=== PATIENT | female | born 1930 | race Caucasian/White ===

== ENCOUNTER 2016-11-17 17:04 | Emergency (ER) | payer OTHER, BC ==
[~2016-11-17] VITALS: Ht 157.5 cm; Wt 70.0 kg
[~2016-11-17 17:04] MED LIST: ASCO500T87 PO; ASPI81TA28 PO; CHOL20009 PO; DOCU100C22 PO; GARL10007 PO; LISI5TAB3 PO; SENN8.6T13 PO; [UNRECOGNIZED DRUG - OTHER] PO
[2016-11-17 17:09] VITALS: TEMP 37.4; Ht 157.5 cm; Wt 70.0 kg
[2016-11-17] MEDS ORDERED: SODIUM CHLORIDE 0.9% 500ML 500 ML IV STA (17:39)
[2016-11-17] MEDS ORDERED: PROMETHAZINE HCL INJ 25 MG in SODIUM CHLORIDE 0.9% 50ML 50 ML IV STA (17:39)
--- NOTE | 2016-11-17 17:44 | EMERGENCY ROOM VISIT NOTE ---
History Report prepared by Neftaly: Ney Nicole Under the Supervision of: Dr. Pedro Varghese M.D. First contact with patient: 17:33 Chief Complaint: ILLNESS Stated Complaint: VOMITING, SICK IN STOMACH History of Present Illness The patient is an 86 year old female who presents to the Emergency Room with complaints of a persistent illness that started today. She complains of nausea, chills, a headache, and episodes of vomiting. The patient notes that her vomit has been dark. Per the patient's family, the patient has not been able to eat all day. They called the patient's primary care physician, who told the patient to come here. The patient's blood sugar was down to 112 this morning, and that' s the lowest it has been. The patient says she has a large hiatal hernia. She denies any pain or diarrhea. The patient has been around others who have been sick. She has a history of a cholecystectomy, an appendectomy, and a removal of her uterus. Source of History: patient, family Onset: Today Position: other (global - illness) Timing: other (persistent) Associated Symptoms: + chills, + headache, + nausea, + vomiting, No diarrhea Note: Associated symptoms: Unable to eat, low blood sugar. Review of Systems See HPI for pertinent positives & negatives. A total of 10 systems reviewed and were otherwise negative. Past Medical & Surgical Medical Problems: (1) Coronary artery disease (2) GERD (gastroesophageal reflux disease) (3) Hiatal hernia (4) History of cervical cancer (5) Hypertension (6) Hypothyroidism (7) Left bundle branch block (8) Polymyalgia rheumatica (9) Ulcerative colitis Surgical Problems: (1) Status post appendectomy (2) Status post cholecystectomy (3) Status post total knee replacement Family History Diabetes mellitus FH: CAD (coronary artery disease) FH: cancer FH: gallbladder disease FH: kidney disease FH: lung disease Hypertension Social History Smoking Status: Never Smoker Marital Status: Occupation Status: retired Current/Historical Medications Scheduled Ascorbic Acid (Vitamin C Tr/Mesha Hips), 1 TAB PO DAILY Aspirin (Aspirin Ec), 81 MG PO DAILY Atorvastatin (Atorvastatin Calcium), 20 MG PO DAILY Calcium Citrate-Vitamin D (Citracal Maximum), 2 TABS PO DAILY Cholecalciferol (Vitamin D), 2,000 INTER.UNIT PO DAILY Ciprofloxacin (Ciprofloxacin HCl), 1 TAB PO DAILY Docusate Sodium (Docqlace), 1 CAP PO BID Fish Oil ([place]-3), 1 CAP PO DAILY Flaxseed (Linseed) (Gnp Flaxseed), 1,000 MG PO DAILY Garlic (Garlic), 1 CAP PO DAILY Lansoprazole (Prevacid), 30 MG PO BID Lisinopril (Lisinopril), 10 MG PO DAILY Mesalamine (Asacol Hd), 800 MG PO QAM Multivitamin (Multivitamin), 1 TAB PO DAILY Ondasetron Odt (Zofran Odt), 4 MG SL Q6H Prednisone (Prednisone), 5 MG PO DAILY Sennosides (Senna Lax), 1 TAB PO DAILY Sitagliptin (Januvia), 100 MG PO DAILY Sulfanilamide Vaginal (Avc), 1 APPLN PV UD Thyroid ([place] Thyroid), 60 MG PO Q2D Thyroid ([place] Thyroid), 30 MG PO Q2D Scheduled PRN Hydrocodone/Acetaminophen 5MG/325MG (Arthur 5MG/325MG), 1 TABLET PO UD PRN for Pain Hydrocortisone Acetate (Rectal (Anucort-Hc), 25 MG KS DAILY PRN for PRN Allergies Coded Allergies: Technetium-99M (Unverified Allergy, Severe, RASH, 12/19/15) Calamine (Unverified Allergy, Mild, RASH WORSE, 12/19/15) Tetanus Toxoid (Verified Allergy, Mild, 12/19/15) Physical Exam Vital Signs Date Time Temp Pulse Resp B/P Pulse Ox O2 Delivery O2 Flow Rate FiO2 11/17/16 21:30 86 18 119/54 96 Room Air 11/17/16 18:24 79 11/17/16 17:09 37.4 83 22 125/72 97 Room Air Physical Exam GENERAL: Patient is a healthy-appearing well-nourished, hyperventilating on exam. HEAD: Normocephalic atraumatic EYES: Ocular movements intact pupils equal and react to light OROPHARYNX mucous membranes are moist no exudates present no erythema or edema present NECK: Supple no nuchal rigidity CHEST: Good equal expansion LUNGS: Clear and equal to auscultation CARDIAC: Normal S1 and S2 ABDOMEN: Soft nontender no guarding BACK: No CVA tenderness EXTREMITIES: No pain upon palpation normal muscle strength in all groups no clubbing cyanosis or edema NEURO: Patient is following commands is answering questions appropriately. Alert and oriented x3 Cranial Nerves 2-12 grossly intact Medical Decision & Procedures ER Provider Diagnostic Interpretation: ABDOMEN AND PELVIS CT WITH IV CONTRAST CT DOSE: 403.04 mGy.cm HISTORY: Right lower quadrant abdominal pain. TECHNIQUE: Multiaxial CT images of the abdomen and pelvis were performed following the use of intravenous contrast. COMPARISON STUDY: Abdomen and pelvis CT 02/09/2011. FINDINGS: Moderate to large hiatus hernia, unchanged. Cholecystectomy, hysterectomy, and appendectomy. The liver, pancreas, spleen, and adrenal glands are unremarkable. The the right kidney enhances normally. There is an indeterminate 8 mm lesion within the left kidney on image 146.. No hydronephrosis. No retroperitoneal lymphadenopathy. The bladder is unremarkable. A pessary device is seen within the vagina. Suboptimal evaluation for bowel pathology due to the lack of oral contrast. However, there is no definite bowel wall thickening or obstruction. Colonic diverticulosis. IMPRESSION: 1. No bowel wall thickening or obstruction. 2. Postoperative changes as described above. 3. Colonic diverticulosis. 4. Moderate to large hiatus hernia, unchanged. 5. An indeterminate 8 mm lesion within the left kidney. This could represent a hyperdense cyst or solid renal mass. Electronically signed by: Todd Mckeon M.D. 11/17/2016 8:02 PM Dictated Date/Time: 11/17/2016 7:53 PM CHEST ONE VIEW PORTABLE HISTORY: Atypical CHEST PAIN COMPARISON: Chest 11/03/2015. FINDINGS: Moderate hiatus hernia, unchanged. No pneumothorax. Linear densities the left lung base persist and likely represent subsegmental atelectasis or scarring. Otherwise, the lungs are clear. The heart is stable in size. No pleural effusions. IMPRESSION: No change in the mild cardiomegaly and hiatus hernia. Electronically signed by: Todd Mckeon M.D. 11/17/2016 6:29 PM Dictated Date/Time: 11/17/2016 6:28 PM Laboratory Results 11/17/16 18:00 Red Blood Count 4.75, Mean Corpuscular Volume 85.1, Mean Corpuscular Hemoglobin 28.2, Mean Corpuscular Hemoglobin Concent 33.2, Mean Platelet Volume 10.5, Neutrophils (%) (Auto) 88.2, Lymphocytes (%) (Auto) 4.3, Monocytes (%) (Auto) 6.0, Eosinophils (%) (Auto) 1.1, Basophils (%) (Auto) 0.2, Neutrophils # (Auto) 10.80, Lymphocytes # (Auto) 0.52, Monocytes # (Auto) 0.73, Eosinophils # (Auto) 0.13, Basophils # (Auto) 0.02 11/17/16 18:00 Test 11/17/16 17:13 11/17/16 17:35 11/17/16 18:00 11/17/16 18:06 Bedside Glucose 155 mg/dl (70-90) Urine Color YELLOW Urine Appearance CLEAR (CLEAR) Urine pH 5.0 (4.5-7.5) Urine Specific [place] 1.021 (1.000-1.030) Urine Protein NEG (NEG) Urine Glucose (UA) NEG (NEG) Urine Ketones NEG (NEG) Urine Occult Blood NEG (NEG) Urine Nitrite NEG (NEG) Urine Bilirubin NEG (NEG) Urine Urobilinogen NEG (NEG) Urine Leukocyte Esterase TRACE (NEG) Urine WBC (Auto) 1-5 /hpf (0-5) Urine RBC (Auto) 0-4 /hpf (0-4) Urine Hyaline Casts (Auto) 1-5 /lpf (0-5) Urine Epithelial Cells (Auto) 10-20 /lpf (0-5) Urine Bacteria (Auto) NEG (NEG) White Blood Count 12.23 K/uL (4.8-10.8) Red Blood Count 4.75 M/uL (4.2-5.4) Hemoglobin 13.4 g/dL (12.0-16.0) Hematocrit 40.4 % (37-47) Mean Corpuscular Volume 85.1 fL (80-100) Mean Corpuscular Hemoglobin 28.2 pg (25-34) Mean Corpuscular Hemoglobin Concent 33.2 g/dl (32-36) Platelet Count 234 K/uL (130-400) Mean Platelet Volume 10.5 fL (7.4-10.4) Neutrophils (%) (Auto) 88.2 % Lymphocytes (%) (Auto) 4.3 % Monocytes (%) (Auto) 6.0 % Eosinophils (%) (Auto) 1.1 % Basophils (%) (Auto) 0.2 % Neutrophils # (Auto) 10.80 K/uL (1.4-6.5) Lymphocytes # (Auto) 0.52 K/uL (1.2-3.4) Monocytes # (Auto) 0.73 K/uL (0.11-0.59) Eosinophils # (Auto) 0.13 K/uL (0-0.5) Basophils # (Auto) 0.02 K/uL (0-0.2) RDW Standard Deviation 43.7 fL (36.4-46.3) RDW Coefficient of Variation 14.1 % (11.5-14.5) Immature Granulocyte % (Auto) 0.2 % Immature Granulocyte # (Auto) 0.03 K/uL (0.00-0.02) Est Creatinine Clear Calc Drug Dose 23.1 ml/min Estimated GFR () 33.5 Estimated GFR (Non- 28.9 BUN/Creatinine Ratio 26.1 (10-20) Calcium Level 8.7 mg/dl (8.5-10.1) Total Bilirubin 0.4 mg/dl (0.2-1) Direct Bilirubin 0.1 mg/dl (0-0.2) Aspartate Amino Transf (AST/SGOT) 10 U/L (15-37) Alanine Aminotransferase (ALT/SGPT) 16 U/L (12-78) Alkaline Phosphatase 53 U/L (45-117) Total Creatine Kinase 44 U/L (26-192) Creatine Kinase MB < 0.5 ng/ml (0.5-3.6) Creatine Kinase MB Ratio (0-3.0) Troponin I < 0.015 ng/ml (0-0.045) Total Protein 7.5 gm/dl (6.4-8.2) Albumin 3.5 gm/dl (3.4-5.0) Lipase 153 U/L (73-393) Bedside Hemoglobin 14.6 g/dl (12.0-16.0) Bedside Hematocrit 43 % (37-47) Bedside Sodium 139 mEq/L (135-144) Bedside Potassium 4.3 mEq/L (3.3-5.0) Bedside Chloride 103 mEq/L (101-112) Bedside Total CO2 24 mEq/l (24-31) Anion Gap 18.0 mmol/L (16-25) Bedside Blood Urea Nitrogen 38 mg/dl (7-18) Bedside Creatinine 1.3 mg/dl (0.6-1.3) Bedside Glucose (other) 166 mg/dl (70-99) Bedside Ionized Calcium (Kristina) 1.07 mmol/l (1.12-1.32) Labs reviewed by ED physician. Medications Administered Medications (Trade) Dose Ordered Sig/Kacey Route Start Time Stop Time Status Last Admin Dose Admin Sodium Chloride 500 ml @ 999 mls/hr Q31M STAT IV 11/17/16 17:39 11/17/16 18:09 DC 11/17/16 18:01 999 MLS/HR Promethazine HCl/ Sodium Chloride (Phenergan Inj/ Nss 50ml) 51 ml @ 204 mls/hr NOW STAT IV 11/17/16 17:39 11/17/16 17:53 DC 11/17/16 17:39 204 MLS/HR Ondansetron HCl (ZOFRAN ODT 4MG Home Pack) 1 homepack UD ONCE PO 11/17/16 20:30 11/17/16 20:31 DC 11/17/16 20:30 1 HOMEPACK ECG Indication: other (illness) Rate (beats per minute): 69 Rhythm: normal sinus Findings: LBBB, no acute ischemic change, no ectopy Comparison ECG Date: no prior available ED Course 1734: Past medical records reviewed. The patient was evaluated in room B5. A complete history and physical examination was performed. 173: Ordered Promethazine HCl 25 mg/Sodium Chloride 51 ml @ 204 mls/hr IV, NSS 500 ml @ 999 mls/hr IV. Medical Decision Differential diagnosis: Etiologies such as appendicitis, diverticulitis, PUD, biliary pathology, UTI, pancreatitis, obstruction, mesenteric ischemia, aortic pathology, infections, inflammatory bowel disease, renal colic, as well as others were entertained. This is a 86-year-old female who presents emergency department complaining of vomiting and abdominal pain. Serial abdominal examinations were performed on the patient in the emergency department and no tended patient exhibit a surgical abdomen. The patient was given normal saline bolus along with Phenergan. The patient does have a slight elevation in her white blood count in her creatinine is slightly bumped however she was given normal saline bolus in the emergency department at the patient was tolerating oral fluids. The patient wishes to be discharged home so I will trial her on Zofran however strongly encouraged her to return. Patient was in agreement with the treatment plan. Impression Primary Impression: Gastritis Scribe Attestation The scribe's documentation has been prepared under my direction and personally reviewed by me in its entirety. I confirm that the note above accurately reflects all work, treatment, procedures, and medical decision making performed by me. Departure Information Dispostion Home / Self-Care Prescriptions Ondasetron Odt (ZOFRAN ODT) 4 Mg Tab 4 MG SL Q6H for Nausea, #6 TAB Prov: Pedro Varghese MD 11/17/16 Referrals Christopher Martinez M.D. (PCP) Patient Instructions My [facility] Problem Qualifiers Primary Impression: Gastritis Gastritis type: other gastritis Chronicity: unspecified Gastritis bleeding : presence of bleeding unspecified Qualified Codes: K29.60 - Other gastritis without bleeding
[2016-11-17] MEDS ORDERED: OMEG10007 PO (17:46)
[2016-11-17] MEDS ORDERED: PRED-301 PO (17:46)
[2016-11-17] MEDS ORDERED: MULT-506 PO (17:46)
[2016-11-17] MEDS ORDERED: OPTIRAY 320 IV PRN (18:00)
[2016-11-17 18:05] LABS: BASO % 0.2 %; BASO ABS # 0.02 K/uL (0-0.2); COMPLETE YES; EOS % 1.1 %; HEMATOCRIT 40.4 % (37-47); IG% 0.2 %; LYMPH % 4.3 %; LYMPH ABS # 0.52 K/uL (1.2-3.4); MEAN CELL VOLUME 85.1 fL (80-100); MEAN CORPUSCULAR HEMOGLOBIN 28.2 pg (25-34); MEAN CORPUSCULAR HGB CONC 33.2 g/dl (32-36); MEAN PLATELET VOLUME 10.5 fL (7.4-10.4); NEUT % 88.2 %; PLATELET COUNT 234 K/uL (130-400); RED BLOOD COUNT 4.75 M/uL (4.2-5.4); WHITE BLOOD COUNT 12.23 K/uL (4.8-10.8)
[2016-11-17 18:22] LABS: ISTAT CREATININE 1.3 mg/dl (0.6-1.3); ISTAT HEMOGLOBIN 14.6 g/dl (12.0-16.0); ISTAT IONIZED CALCIUM 1.07 mmol/l (1.12-1.32)
--- NOTE | 2016-11-17 18:30 | DIAGNOSTIC IMAGING REPORT ---
CHEST ONE VIEW PORTABLE HISTORY: Atypical CHEST PAIN COMPARISON: Chest 11/03/2015. FINDINGS: Moderate hiatus hernia, unchanged. No pneumothorax. Linear densities the left lung base persist and likely represent subsegmental atelectasis or scarring. Otherwise, the lungs are clear. The heart is stable in size. No pleural effusions. IMPRESSION: No change in the mild cardiomegaly and hiatus hernia. Electronically signed by: Todd Mckeon M.D. 11/17/2016 6:29 PM Dictated Date/Time: 11/17/2016 6:28 PM
[2016-11-17 18:32] LABS: ALT/SGPT 16 U/L (12-78); BLOOD UREA NITROGEN 42 mg/dl (7-18); BUN/CREATININE RATIO 26.1 (10-20); CALCIUM 8.7 mg/dl (8.5-10.1); CARBON DIOXIDE 22 mmol/L (21-32); CHLORIDE 104 mmol/L (98-107); GLUCOSE 161 mg/dl (70-99); POTASSIUM 4.3 mmol/L (3.5-5.1); SODIUM 140 mmol/L (136-145)
[2016-11-17] MEDS ORDERED: SITA1TAB27 PO (18:33)
[2016-11-17] MEDS ORDERED: CPR500HP PO (18:33)
[2016-11-17] MEDS ORDERED: [UNRECOGNIZED DRUG - OTHER] PV (18:33)
[2016-11-17] MEDS ORDERED: LISI-461 PO (18:33)
[2016-11-17] MEDS ORDERED: LPT/20 PO (18:33)
[2016-11-17 18:37] LABS: ALKALINE PHOSPHATASE 53 U/L (45-117); AST/SGOT 10 U/L (15-37)
[2016-11-17] MEDS ORDERED: HYDR-5688 PO (18:50)
[2016-11-17] MEDS ORDERED: MESA800T6 PO (19:34)
[2016-11-17] MEDS ORDERED: LANS30CA12 PO (19:35)
[2016-11-17] MEDS ORDERED: HYDR25SU6 PR (19:39)
[2016-11-17] MEDS ORDERED: CALC-323 PO (19:42)
[2016-11-17] MEDS ORDERED: THY/30 PO ×2 (19:46→19:49)
[2016-11-17] MEDS ORDERED: FLAX1CAP4 PO (19:55)
[2016-11-17 20:01] LABS: URINE APPEARANCE CLEAR (CLEAR); URINE BILIRUBIN NEG (NEG); URINE COLOR YELLOW; URINE NITRITE NEG (NEG); URINE SPECIFIC GRAVITY 1.021 (1.000-1.030); UROBILINOGEN NEG (NEG); ZZUR CULT IF INDIC CLEAN CATCH NO
[2016-11-17 20:04] LABS: MANUAL MICROSCOPIC REQUIRED? NO; REVIEW REQ? NO
--- NOTE | 2016-11-17 20:04 | DIAGNOSTIC IMAGING REPORT ---
ABDOMEN AND PELVIS CT WITH IV CONTRAST CT DOSE: 403.04 mGy.cm HISTORY: Right lower quadrant abdominal pain. TECHNIQUE: Multiaxial CT images of the abdomen and pelvis were performed following the use of intravenous contrast. COMPARISON STUDY: Abdomen and pelvis CT 02/09/2011. FINDINGS: Moderate to large hiatus hernia, unchanged. Cholecystectomy, hysterectomy, and appendectomy. The liver, pancreas, spleen, and adrenal glands are unremarkable. The the right kidney enhances normally. There is an indeterminate 8 mm lesion within the left kidney on image 146.. No hydronephrosis. No retroperitoneal lymphadenopathy. The bladder is unremarkable. A pessary device is seen within the vagina. Suboptimal evaluation for bowel pathology due to the lack of oral contrast. However, there is no definite bowel wall thickening or obstruction. Colonic diverticulosis. IMPRESSION: 1. No bowel wall thickening or obstruction. 2. Postoperative changes as described above. 3. Colonic diverticulosis. 4. Moderate to large hiatus hernia, unchanged. 5. An indeterminate 8 mm lesion within the left kidney. This could represent a hyperdense cyst or solid renal mass. Electronically signed by: Todd Mckeon M.D. 11/17/2016 8:02 PM Dictated Date/Time: 11/17/2016 7:53 PM
[2016-11-17] MEDS ORDERED: ONDA4TAB10 SL (20:21)
[2016-11-17] MEDS ORDERED: ONDANSETRON HOME PACK 4MG OD TAB PO ONE (20:30)
[2016-11-17 21:30] VITALS: BP 119/54; PULSE 86; O2SAT 96
[2017-06-19] MEDS ORDERED: ACETYLCYSTEINE PO (08:16)
== END 2016-11-17 21:30 | disposition home or self-care (01) ==
LOC: C.EDB 17:05
DX: R11.10 Vomiting, unspecified (principal); I25.10 Atherosclerotic heart disease of native coronary artery without angina pectoris; K21.9 Gastro-esophageal reflux disease without esophagitis; I10 Essential (primary) hypertension; E03.9 Hypothyroidism, unspecified; I45.4 Nonspecific intraventricular block; Z90.49 Acquired absence of other specified parts of digestive tract; Z96.653 Presence of artificial knee joint, bilateral; Z79.82 Long term (current) use of aspirin

== ENCOUNTER → 2017-06-19 | Day surgery (SDC) | payer OTHER, BC ==
[~2017-06-19] VITALS: Ht 157.5 cm; Wt 68.7 kg
[~2017-06-19] MED LIST changes: +ACETYLCYSTEINE PO; +CALC-323 PO; +CPR500HP PO; +FLAX1CAP4 PO; +HYDR-5688 PO; +HYDR25SU6 PR; +LANS30CA12 PO; +LISI-461 PO; -LISI5TAB3 PO; +LPT/20 PO; +MESA800T6 PO; +MULT-506 PO; +OMEG10007 PO; +OPTIRAY 320 IV PRN; +PRED-301 PO; +SITA1TAB27 PO; +SODIUM BICARBONATE 8.4% INJ 100 MEQ in STERILE WATER 1000 ML 1,000 ML IV SCH; +SODIUM CHLORIDE 0.9% 1000ML 1,000 ML IV SCH; +THY/30 PO; -[UNRECOGNIZED DRUG - OTHER] PO; +[UNRECOGNIZED DRUG - OTHER] PV
[2017-06-19 08:18] VITALS: BP_SYST 182; BP_SYST 193; BP_DIAS 70; BP_DIAS 75; PULSE 62; TEMP 36.4; O2SAT 98; Ht 157.5 cm; Wt 68.7 kg
--- NOTE | 2017-06-19 11:25 | DIAGNOSTIC IMAGING REPORT ---
ANGIOGRAPHY NECK COMBO CLINICAL HISTORY: 87 years-old Female presenting with carotid stenosis. TECHNIQUE: Multidetector CT angiography of the neck was performed before and after the administration of intravenous contrast. 3-D volumetric and/or maximum intensity projection (MIP) images were subsequently reconstructed for review. IV contrast: 93 mL of Optiray 320. A dose lowering technique was used consistent with the principles of ALARA (as low as reasonably achievable). Stenosis measurements were based on NASCET-like criteria. COMPARISON: Carotid Doppler ultrasound from 2013. CT DOSE (mGy.cm): The estimated cumulative dose is 1904.03 mGycm. FINDINGS: Cadd Technician topogram: Unremarkable. Initial noncontrast imaging demonstrates atherosclerosis of aortic arch. No hyperintensity of the vessel fajardo to suggest intramural hematoma. After administration of intravenous contrast patent origins of the 3 vessel arch, although the origin of the innominate artery is not completely included within the [id number]-zxey. Bilateral common carotid arteries and internal carotid arteries patent without evidence of significant stenosis or atherosclerotic burden. Left dominant vertebral artery. Vertebral arteries have patent origins at the subclavian arteries. No significant stenosis or occlusion. Limited intracranial evaluation within normal limits. Visualized dural venous sinuses patent as are the bilateral internal jugular veins at the level of the skull base. No cervical lymphadenopathy. Multilevel degenerative changes of the cervical spine. Lung apices demonstrate a 3 mm solid pulmonary nodule at the right apex (series 4 image 8). IMPRESSION: 1. Patent cervical vessels without evidence of significant atherosclerosis. No occlusion, stenosis, or aneurysm. 2. Solid 3 mm pulmonary nodule at the right apex. Follow-up per [place] Society 2017 recommendations below. Please refer to below summary of Fleischner Society 2017 recommendations for follow-up of incidental CT nodules (H Hernan et al. Guidelines for management of incidental pulmonary nodules detected on CT images: From the Fleischner Society 2017. Radiology 2017; 284: 228-243.) SOLID NODULES Single nodule; size <6 mm * Low risk patients: No routine follow-up * High risk patients: Optional CT at 12 months Single nodule; size 6-8 mm * Low risk patients: CT at 6-12 months, then consider CT at 18-24 months * High risk patients: CT at 6-12 months, then at 18-24 months Single nodule; size >8 mm * Either low or high risk patients: Considered CT at 3 months, PET/CT, or tissue sampling Multiple nodules; size <6 mm * Low risk patients: No routine follow up * High risk patients: Optional CT at 12 months Multiple nodules; size 6-8 mm * Low risk patients: CT at 3-6 months, then consider CT at 18-24 months * High risk patients: CT at 3-6 months, then at 18-24 months Multiple nodules; size >8 mm * Low risk patients: CT at 3-6 months, then consider at 18-24 months * High risk patients: CT at 3-6 months, then at 18-24 months Note: These guidelines apply to incidental nodules. These guidelines did not apply to patients younger than 35 years, immunocompromised patients, or patients with cancer. * Low risk patients: Minimal or absent history of smoking and/or other known risk factors * High risk patients: History of smoking, exposure to other carcinogens, emphysema, fibrosis, upper lobe location, family history of lung cancer, etc. * If a nodule up to 8 mm is partly solid or is ground glass further follow-up is required after 24 months to exclude possible slow growing adenocarcinoma SUBSOLID NODULES Single ground-glass nodule * Nodule size < 6 mm: No routine follow-up * Nodule size > or = 6 mm: CT at 6-12 months to confirm persistence, then CT every 2 years until 5 years Single part-solid nodule * Nodule size < 6 mm: No routine follow-up * Nodules size > or = 6 mm: CT at 3-6 months to confirm persistence. If unchanged and solid component remains < 6 mm, annual CT should be performed for 5 years Multiple nodules * Nodule size < 6 mm: CT at 3-6 months. If stable, consider CT at 2 and 4 years. * Nodules size > or = 6 mm: CT at 3-6 months. Subsequent management based on the most suspicious nodule(s) Electronically signed by: Mo Gresham M.D. 06/19/2017 11:23 AM Dictated Date/Time: 06/19/2017 11:17 AM
[2017-06-19 13:05] VITALS: BP 137/74; PULSE 82; TEMP 36.4
== END | disposition home or self-care (01) ==
LOC: C.MTU 07:39 → EDSTATUS 08:00
PROVIDERS: ATTEND Surgery Vascular Surgery
DX: I65.21 Occlusion and stenosis of right carotid artery (principal); R91.1 Solitary pulmonary nodule

== ENCOUNTER 2018-12-12 17:35 | Observation (INO) ==
[2018-12-12] MEDS ORDERED: SODIUM CHLORIDE 0.9% 1000ML 1,000 ML IV SCH (18:00)
[2018-12-12] MEDS ORDERED: ASPIRIN CHEW 324 MG PO STA (18:17)
--- NOTE | 2018-12-12 18:21 | XRay Report ---
XR chest 1V portable HISTORY: 88 years-old Female Chest Pain acute atypical chest pain COMPARISON: Chest radiograph 09/16/2018 TECHNIQUE: Portable AP view of the chest FINDINGS: Cardiac silhouette is enlarged, unchanged. No pneumothorax, large pleural effusion or overt pulmonary edema. Unchanged blunting of the costophrenic angles suggestive of scarring versus trace effusions. Moderate hiatal hernia. Degenerative changes of the shoulders and spine. Left shoulder rotator cuff c alcific tendinosis. IMPRESSION: 1. Cardiomegaly without acute process. 2. Hiatal hernia. The above report was generated using voice recognition software. It may contain grammatical, syntax o r spelling errors. Electronically signed by: Thomas Pruitt M.D. 12/12/2018 6:20 PM
[2018-12-12 18:29] LABS: Basophils # (auto) 0.02 K/uL (0-0.2); Basophils % (auto) 0.2 %; Eosinophils # (auto) 0.03 K/uL (0-0.5); Eosinophils % (auto) 0.3 %; Hematocrit (blood only) 39.7 % (37-47); Hemoglobin 12.5 g/dL (12.0-16.0); Immature Granulocytes # (auto) 0.02 K/uL (0.00-0.02); Immature Granulocytes % (auto) 0.2 %; Lymphocytes # (auto) 1.65 K/uL (1.2-3.4); Lymphocytes % (auto) 15.5 %; Mean Corpuscular Hgb Conc 31.5 g/dL (32-36); Mean Corpuscular Volume 87.6 fL (80-100); Mean Platelet Volume 11.2 fL (7.4-10.4); Monocytes # (auto) 0.45 K/uL (0.11-0.59); Monocytes % (auto) 4.2 %; Neutrophils # (auto) 8.45 K/uL (1.4-6.5); Neutrophils % (auto) 79.6 %; Platelet Count 201 K/uL (130-400); RDW Coefficient of Variation 14.2 % (11.5-14.5); RDW Standard Deviation 45.7 fL (36.4-46.3); Red Blood Count 4.53 M/uL (4.2-5.4); White Blood Count 10.62 K/uL (4.8-10.8)
[2018-12-12 18:37] LABS: Albumin Level 3.6 gm/dl (3.4-5.0); BUN Creatinine Ratio 15.4 (10-20); Calcium 8.6 mg/dl (8.5-10.1); Creatinine Clr Calc Pharmacy 22.1 ml/min; Est GFR (African American) 31.8; Est GFR (Non-African American) 27.4; Potassium 4.2 mmol/L (3.5-5.1)
[2018-12-12 18:42] LABS: Albumin Globulin Ratio 1.1 (0.9-2); Bilirubin,Total 0.3 mg/dl (0.2-1); Globulin 3.4 gm/dl (2.5-4.0); Troponin I 0.026 ng/ml (0-0.045)
[2018-12-12] MEDS: NITROGLYCERIN 2% OINTMENT 30GM TUBE EXT SCH (20:23)
--- NOTE | 2018-12-12 21:02 | History & Physical Report ---
Date of Service December 12, 2018 Assessment & Plan (1) Acute electrocardiogram changes: -Admit to telemetry -Patient referred to ED by PCP for evaluation of EKG changes, headache, nausea -In the ED, EKG demonstrates deep T wave inversions inferiorly -No reports of chest pain, initial troponin negative -Questionable history of CAD, patient reports "silent [place]" ~ 1989, also underwent stress test at [facility] in 2018 that was questionably abnormal -Patient also found to be significantly hypertensive on arrival, which could be contributing to her symptoms as well -Continue cycle cardiac enzymes, if troponin becomes elevated, consider initiation of heparin -S/P full dose aspirin ED, will continue with aspirin 81 mg daily -Patient was on a beta-farzad in the past, however this was discontinued secondary to resting bradycardia -Continue home doses of isosorbide, lisinopril, statin -will apply Nitropaste secondary to elevated BP -Resting echo -Cardiology consult, input appreciated (2) Hypertension: -BP elevated on arrival at 185/69 -Possibly situational, continuing home doses of isosorbide and lisinopril as above and utilizing Nitropaste for now (3) DM type 2 (diabetes mellitus, type 2): -No recent Hgb A1c available, will check with a.m. labs -Hold oral agents and utilize NovoLog per protocol while hospitalized (4) CKD (chronic kidney disease), stage III: - baseline creat runs in the mid ones - creat noted to be 1.6 today - continue to monitor, avoid nephrotoxic agents when able (5) Ulcerative colitis: -Continue mesalamine (6) GERD (gastroesophageal reflux disease): -Continue PPI (7) Polymyalgia rheumatica: -Continue chronic prednisone 5 mg daily (8) Hypothyroidism: -Continue [place] Thyroid (9) DVT prophylaxis: -SQ heparin History of Present Illness Chief Complaint: Headache, nausea Primary Care Provider: Claudy Kingsley MD 88-year-old female who was sent to the ED by her PCP for evaluation of headache , nausea, EKG changes. Patient reports that shortly after waking up this morning, she developed a headache that she describes as across her eyes, top of her head, and both sides of her neck radiating up into the back of her head. She also reports associated nausea and reflux-like symptoms. Patient reports she has history of migraines and the headache she had today was not as severe as her typical migraines in the past. Patient reports that she generally did not feel well. She went to her PCP who obtained an EKG that noted changes. She also reports a near syncopal event while having blood work drawn there. Patient reports that yesterday she felt as though she was getting a head cold however otherwise has been in her usual state of health. Reports being under a large amount of stress due to her and his Alzheimer's. She denies chest pain, pressure, palpitations, shortness of breath. No associated diaphoresis or syncopal event. She denies fevers and chills. She notes urinary frequency today. In the ED, patient's EKG demonstrates deep T wave inversions inferiorly. Initial troponin is 0.026. Patient is hypertensive with BP 185/69. She was given a full dose aspirin and IVF. Allergies Allergy/AdvReac Type Severity Reaction Status Date / Time technetium-99m Allergy Severe RASH Unverified 12/12/18 18:31 calamine Allergy Mild RASH WORSE Unverified 12/12/18 18:31 tetanus toxoid, adsorbed Allergy Mild Verified 12/12/18 18:31 cephalexin Allergy Unknown RASH Verified 12/12/18 18:31 Home Medications Home Medications Medication Instructions Recorded Confirmed Type aspirin [Aspirin Low Dose] 81 mg PO DAILY 12/12/18 12/12/18 History atorvastatin 20 mg PO DAILY 12/12/18 12/12/18 History cholecalciferol (vitamin D3) 2,000 unit PO DAILY 12/12/18 12/12/18 History [Vitamin D3] docusate sodium [Doc-Q-Lace] 100 mg PO BID 12/12/18 12/12/18 History flaxseed oil 1,000 mg PO DAILY 12/12/18 12/12/18 History isosorbide mononitrate 30 mg PO DAILY 12/12/18 12/12/18 History lansoprazole 30 mg PO BID 12/12/18 12/12/18 History mesalamine [Asacol HD] 800 mg PO DAILY 12/12/18 12/12/18 History omega 5-adw-pel-fish oil [Fish Oil] 1 cap PO DAILY 12/12/18 12/12/18 History prednisone 5 mg PO DAILY 12/12/18 12/12/18 History sennosides [senna] 8.6 mg PO DAILY PRN 12/12/18 12/12/18 History sitagliptin 100 mg PO DAILY 12/12/18 12/12/18 History thyroid (pork) 30 mg PO Q2D 12/12/18 12/12/18 History thyroid (pork) 60 mg PO Q2D 12/12/18 12/12/18 History amlodipine [Norvasc] 5 mg PO QAM 30 Days #30 tab 12/13/18 Rx lisinopril 20 mg PO DAILY 30 Days #30 tab 12/13/18 Rx metformin [Glucophage] 500 mg PO DAILYBD 30 Days #30 tab 12/13/18 Rx Past Med/Surg History Medical History CKD (chronic kidney disease), stage III (Chronic) Ulcerative colitis (Chronic) Hypertension (Chronic) Coronary artery disease (Chronic) Hiatal hernia (Chronic) GERD (gastroesophageal reflux disease) (Chronic) Polymyalgia rheumatica (Chronic) Left bundle branch block (Chronic) Hypothyroidism (Chronic) History of cervical cancer (Chronic) NSTEMI (non-ST elevated myocardial infarction) (Inactive) Silent myocardial infarction (Inactive ~1989) Surgical History History of tonsillectomy (Chronic) History of partial hysterectomy (Chronic) H/O hemorrhoidectomy (Chronic) Status post appendectomy (Chronic) Status post cholecystectomy (Chronic) Status post total knee replacement (Chronic) Family History Other Family history non-contributory Social History Current Living Situation: Spouse Other Information That Helps Us Care for You: No Feels Safe at Home: Yes Safety Concerns: Feels Safe At This Time Smoking Status: Former smoker Do You Dip or Chew Tobacco: No Second Hand Exposure: No Tobacco Cessation Education Requested by Patient: No Hx Alcohol Use: No Hx Substance Use: No Beliefs That Will Affect Care: None Preferred Language: [place]ian Review of Systems ROS per HPI, all other systems reviewed and negative Physical Exam 2 Vital Signs (Past 24 Hours): Last Vital Signs Temp 36.7 C 12/12/18 17:49 Pulse 78 02/21/19 19:46 Resp 18 12/12/18 19:46 BP 195/81 H 12/12/18 19:46 Pulse Ox 98 12/12/18 19:46 Constitutional: WD/WN, vitals as above Eyes: PERRL, conjunctivae normal, anicteric sclerae ENMT: external ear and nose normal, oropharynx normal Respiratory: normal respiratory effort, lungs clear to auscultation Cardiovascular: Rate/Rhythm: regular rate and regular rhythm Vessels: normal peripheral pulses Extremities: + edema (Trace edema BLE) Gastrointestinal (Abdomen): normal bowel sounds, soft, nontender, no hepatosplenomegaly Musculoskeletal: no cyanosis or clubbing, extremities motor strength 5/5 Skin: no rashes, warm and dry Neurologic: PERRL, EOMI, accommodation nl, no face palsy, no dysarthria Psychiatric: A+Ox3, euthymic affect Results & Data Laboratory Results Laboratory Last Values WBC 10.62 K/uL (4.8-10.8) 12/12/18 18:02 RBC 4.53 M/uL (4.2-5.4) 12/12/18 18:02 Hgb 12.5 g/dL (12.0-16.0) 12/12/18 18:02 Hct 39.7 % (37-47) 12/12/18 18:02 MCV 87.6 fL (80-100) 12/12/18 18:02 MCH 27.6 pg (25-34) 12/12/18 18:02 MCHC 31.5 g/dL (32-36) L 12/12/18 18:02 RDW Std Deviation 45.7 fL (36.4-46.3) 12/12/18 18:02 RDW Coeff of Geovanna 14.2 % (11.5-14.5) 12/12/18 18:02 Plt Count 201 K/uL (130-400) 12/12/18 18:02 MPV 11.2 fL (7.4-10.4) H 12/12/18 18:02 Immature Gran % (Auto) 0.2 % 12/12/18 18:02 Neut % (Auto) 79.6 % 12/12/18 18:02 Lymph % (Auto) 15.5 % 12/12/18 18:02 [place] % (Auto) 4.2 % 12/12/18 18:02 Eos % (Auto) 0.3 % 12/12/18 18:02 Baso % (Auto) 0.2 % 12/12/18 18:02 Immature Gran # (Auto) 0.02 K/uL (0.00-0.02) 12/12/18 18:02 Neut # (Auto) 8.45 K/uL (1.4-6.5) H 12/12/18 18:02 Lymph # (Auto) 1.65 K/uL (1.2-3.4) 12/12/18 18:02 [place] # (Auto) 0.45 K/uL (0.11-0.59) 12/12/18 18:02 Eos # (Auto) 0.03 K/uL (0-0.5) 12/12/18 18:02 Baso # (Auto) 0.02 K/uL (0-0.2) 12/12/18 18:02 Sodium 140 mmol/L (136-145) 12/12/18 18:02 Potassium 4.2 mmol/L (3.5-5.1) 12/12/18 18:02 Chloride 109 mmol/L (98-107) H 12/12/18 18:02 Carbon Dioxide 25 mmol/L (21-32) 12/12/18 18:02 Anion Gap 6.0 (3-11) 12/12/18 18:02 BUN 25 mg/dl (7-18) H 12/12/18 18:02 Creatinine 1.65 mg/dl (0.6-1.2) H 12/12/18 18:02 Est Cr Clr Drug Dosing 22.1 ml/min 12/12/18 18:02 Est GFR ( Amer) 31.8 12/12/18 18:02 Est GFR (Non-Af Amer) 27.4 12/12/18 18:02 BUN/Creatinine Ratio 15.4 (10-20) 12/12/18 18:02 Glucose 145 mg/dl (70-99) H 12/12/18 18:02 Calcium 8.6 mg/dl (8.5-10.1) 12/12/18 18:02 Total Bilirubin 0.3 mg/dl (0.2-1) 12/12/18 18:02 AST 16 U/L (15-37) 12/12/18 18:02 ALT 17 U/L (12-78) 12/12/18 18:02 Alkaline Phosphatase 64 U/L (45-117) 12/12/18 18:02 Troponin I 0.026 ng/ml (0-0.045) 12/12/18 18:02 Total Protein 7.0 gm/dl (6.4-8.2) 12/12/18 18:02 Albumin 3.6 gm/dl (3.4-5.0) 12/12/18 18:02 Globulin 3.4 gm/dl (2.5-4.0) 12/12/18 18:02 Albumin/Globulin Ratio 1.1 (0.9-2) 12/12/18 18:02 Lipase 125 U/L (73-393) 12/12/18 18:02 Diagnostic Findings CXR IMPRESSION: 1. Cardiomegaly without acute process. 2. Hiatal hernia. Code Status & VTE Plan Code Status Patient is a full code as per my discussion with her. VTE Prophylaxis Plan VTE Prophylaxis will be ordered: Yes Supervising Physician Co-Signing Physician Notes Care coordinated with Jeane ANDERSON. Agree with able note. Patient seen and examined. Please refer to her notes for full details. Vital signs reviewed. Physical exam: General exam: Alert and oriented. Not in acute distress. CVS: S1 and S2 heard, regular rate and rhythm, no murmurs. RS: Clear to auscultation, no wheezing or crackles. ABD: Soft, bowel sounds present, nontender, no distention. CALCULATOR OPERATOR: Nonfocal. EXT: No edema, no erythema. Labs: Reviewed. Assessment and plan: 88F presented to PCP with headache and nausea and was found to have ekg changes and advised to go to ER. Ekg changes t wave inversions in inferior leads asymptomatic repeat ekg, serial ce, echo monitor in tele'cardio consult in am. HTN elevated continue home meds placed on nitro past will monitor Other diagnosis and plan of care as per Jeane ANDERSON. Dylon lamb MD.
[2018-12-12] MEDS ORDERED: SENNA 8.6 MG TAB PO PRN (21:07)
[2018-12-12] MEDS ORDERED: GLUCOSE 40% GEL 15 GM TUBE PO PRN (21:07)
[2018-12-12] MEDS ORDERED: GLUCAGON FOR INJ 1 MG VIAL SQ PRN (21:07)
[2018-12-12] MEDS ORDERED: DEXTROSE 50% 50 ML SYRINGE IV PRN (21:07)
[2018-12-12] MEDS ORDERED: GLUCOSE 10 TABS/TUBE PO PRN (21:07)
[2018-12-12] MEDS ORDERED: CARBOHYDRATES FOR HYPOGLYCEMIA PO PRN (21:07)
[2018-12-12] MEDS ORDERED: ACETAMINOPHEN 325 MG TAB PO PRN (21:07)
[2018-12-12] MEDS ORDERED: NITROGLYCERIN SL 0.4 MG/TAB TAB SL PRN (21:07)
[2018-12-12 21:52] LABS: Appearance Urine Clear (Clear); Bilirubin Urine Negative (Negative); Blood Urine Negative (Negative); Color Urine Yellow; Glucose Urine UA Negative (Negative); Ketones Urine Negative (Negative); Leukocyte Esterase Urine Negative (Negative); Nitrite Urine Negative (Negative); Protein Urine Negative (Negative); Specific Gravity Urine 1.008 (1.000-1.030); Urobilinogen Urine Negative (Negative)
[2018-12-12 22:00] LABS: INR 1.1 (0.9-1.1); Prothrombin Time 11.3 Seconds (9.0-12.0)
[2018-12-12] MEDS ORDERED: INSULIN ASPART 100 UNITS/ML 3 ML PEN SC SCH (22:00)
[2018-12-12] MEDS: LANSOPRAZOLE 30 MG SOLTAB PO SCH (22:12)
[2018-12-12] MEDS: DOCUSATE SODIUM 100 MG CAP PO SCH (22:12)
--- NOTE | 2018-12-13 00:08 | Emergency Department Note ---
Entered by Allie Leon acting as a scribe for Addison Dumont DO History of Present Illness General Chief complaint: Headache Time Seen by Provider: 12/12/18 17:36 Source: patient Mode of arrival: EMS Limitations: no limitations History of Present Illness Onset (ago): hour(s) 8 Location: abdomen Radiation: non-radiation Associated symptoms: + headaches and + other (-abdominal pain); no chest pain, no cough, no shortness of breath and no weakness (or numbness in arms or legs) Treatments prior to arrival: none The patient is an 88 year old female who presents to the Emergency Room with complaints of nausea. She was brought to the ED via EMS. She states she was at her doctors office earlier today when she began to feel weak and experience nausea and a headache, so her doctor recommended she come to the ED. The patient states her symptoms have resolved here in the ED. She denies any recent cough or cold symptoms. She states her headache started this morning upon waking and admits to a history of migraines. She denies any changes in vision or weakness or numbness in her arms or legs. She denies any abdominal pain, chest pain or shortness of breath. Her last BM was this morning. No other exacerbating or remitting factors. Home Medications Home Medications Medication Instructions Recorded Confirmed Type aspirin [Aspirin Low Dose] 81 mg PO DAILY 12/12/18 12/12/18 History atorvastatin 20 mg PO DAILY 12/12/18 12/12/18 History cholecalciferol (vitamin D3) 2,000 unit PO DAILY 12/12/18 12/12/18 History [Vitamin D3] docusate sodium [Doc-Q-Lace] 100 mg PO BID 12/12/18 12/12/18 History flaxseed oil 1,000 mg PO DAILY 12/12/18 12/12/18 History isosorbide mononitrate 30 mg PO DAILY 12/12/18 12/12/18 History lansoprazole 30 mg PO BID 12/12/18 12/12/18 History lisinopril 10 mg PO DAILY 12/12/18 12/12/18 History mesalamine [Asacol HD] 800 mg PO DAILY 12/12/18 12/12/18 History omega 1-hgg-tij-fish oil [Fish Oil] 1 cap PO DAILY 12/12/18 12/12/18 History prednisone 5 mg PO DAILY 12/12/18 12/12/18 History sennosides [senna] 8.6 mg PO DAILY PRN 12/12/18 12/12/18 History sitagliptin 100 mg PO DAILY 12/12/18 12/12/18 History thyroid (pork) [[place] Thyroid] 30 mg PO Q2D 12/12/18 12/12/18 History thyroid (pork) [[place] Thyroid] 60 mg PO Q2D 12/12/18 12/12/18 History Allergies Allergy/AdvReac Type Severity Reaction Status Date / Time technetium-99m Allergy Severe RASH Unverified 12/12/18 18:31 calamine Allergy Mild RASH WORSE Unverified 12/12/18 18:31 tetanus toxoid, adsorbed Allergy Mild Verified 12/12/18 18:31 cephalexin Allergy Unknown RASH Verified 12/12/18 18:31 Past Med/Surg History Medical History CKD (chronic kidney disease), stage III (Chronic) Ulcerative colitis (Chronic) Hypertension (Chronic) Coronary artery disease (Chronic) Hiatal hernia (Chronic) GERD (gastroesophageal reflux disease) (Chronic) Polymyalgia rheumatica (Chronic) Left bundle branch block (Chronic) Hypothyroidism (Chronic) History of cervical cancer (Chronic) NSTEMI (non-ST elevated myocardial infarction) (Inactive) Silent myocardial infarction (Inactive ~1989) Surgical History History of tonsillectomy (Chronic) History of partial hysterectomy (Chronic) H/O hemorrhoidectomy (Chronic) Status post appendectomy (Chronic) Status post cholecystectomy (Chronic) Status post total knee replacement (Chronic) Family History Other Family history non-contributory Social History Current Living Situation: Spouse Other Information That Helps Us Care for You: No Feels Safe at Home: Yes Safety Concerns: Feels Safe At This Time Smoking Status: Former smoker Do You Dip or Chew Tobacco: No Second Hand Exposure: No Tobacco Cessation Education Requested by Patient: No Hx Alcohol Use: No Hx Substance Use: No Beliefs That Will Affect Care: None Preferred Language: [place] Communication Ability: Effective [place] Required: No Review of Systems See HPI for pertinent positives & negatives. and A total of 10 systems reviewed and were otherwise negative Physical Exam Vital Signs Vital Signs - 24 hr 12/12/18 17:49 12/12/18 19:46 12/12/18 21:15 Temperature 36.7 C 36.4 C L Temperature Source Oral Oral Sepsis Recent Fever Within 48 Hours No Sepsis New/Unexplained Change in Mental Status No Sepsis Action Taken by Nursing No Action Required Pulse Rate 72 Pulse Rate [Right Finger] 78 60 Pulse Rhythm Regular Pulse Rhythm [Right Finger] Regular Pulse Strength Normal Pulse Strength [Right Finger] Normal Respiratory Rate 18 18 18 Respiratory Effort / Characteristics Non-Labored Non-Labored Spontaneous Respiratory Depth Normal Normal Respiratory Pattern Regular Regular Blood Pressure 185/69 H Blood Pressure [Right Arm] 195/81 H 172/68 H Blood Pressure Mean 107 Blood Pressure Mean [Right Arm] 119 102 Blood Pressure Position Lying Blood Pressure Position [Right Arm] Sitting Pulse Oximetry 98 98 92 Oxygen Delivery Method Room Air Room Air 12/12/18 23:05 Temperature 36.5 C Temperature Source Oral Sepsis Recent Fever Within 48 Hours Sepsis New/Unexplained Change in Mental Status Sepsis Action Taken by Nursing Pulse Rate Pulse Rate [Right Finger] 57 L Pulse Rhythm Pulse Rhythm [Right Finger] Pulse Strength Pulse Strength [Right Finger] Respiratory Rate 18 Respiratory Effort / Characteristics Respiratory Depth Respiratory Pattern Blood Pressure Blood Pressure [Right Arm] 132/69 Blood Pressure Mean Blood Pressure Mean [Right Arm] 90 Blood Pressure Position Blood Pressure Position [Right Arm] Lying Pulse Oximetry 94 Oxygen Delivery Method Room Air GENERAL: Sitting up in bed, alert, well appearing, well nourished, no distress, non-toxic EYE EXAM: normal conjunctiva. PERRL and EOM's intact OROPHARYNX: no exudate, no erythema, lips, buccal mucosa, and tongue normal and mucous membranes are moist NECK: supple, no nuchal rigidity, no adenopathy, non-tender LUNGS: Clear to auscultation. Normal chest wall mechanics HEART: no murmurs, S1 normal and S2 normal ABDOMEN: abdomen soft, non-tender, normo-active bowel, sounds, no masses, no rebound or guarding. BACK: Back is symmetrical on inspection and there is no deformity, no midline tenderness, no CVA tenderness. SKIN: no rashes and no bruising UPPER EXTREMITIES: upper extremities are grossly normal. LOWER EXTREMITIES: No pitting edema. NEURO EXAM: Normal sensorium, cranial nerves II-XII intact, normal speech, no weakness of arms, no weakness of legs. No drift. Finger to nose intact. Gross sensation intact. Course ED COURSE: Vital signs were reviewed and showed the patient is hypertensive. The patients medical record was reviewed The above diagnostic studies were performed and reviewed. ED treatments and interventions as stated above. 1738: The patient was evaluated in room C12. A complete history and physical examination was performed. 1899: [facility] The patient will be further evaluated. 1904: Upon reevaluation, the patient is resting comfortably. I discussed my findings with the patient and she understands and agrees with the treatment plan. Based on the patients age, coexisting illnesses, exam and lab findings the decision to treat as an inpatient was made. The patient remained stable while under my care. The patient will be evaluated for further management. Consultations Consultation #1: I discussed the patients case [facility]. The patient will be further evaluated. Time: 19:00 Administered Medications Docusate Sodium (Colace) 100 mg PO BID WILLIAN Stop: 01/11/19 21:59 Last Admin: 12/12/18 22:12 Dose: 100 mg Insulin Aspart (Novolog Flexpen) 0 units SC ACHS WILLIAN Stop: 01/11/19 21:59 Last Admin: 12/12/18 22:15 Dose: 4 units Lansoprazole (Prevacid) 30 mg PO BID WILLIAN Stop: 01/11/19 21:59 Last Admin: 12/12/18 22:12 Dose: 30 mg Nitroglycerin (Nitro-Bid 2%) 1 inch EXT Q6 WILLIAN Stop: 01/11/19 20:04 Last Admin: 12/12/18 20:23 Dose: 1 inch Discontinued Medications Aspirin (Aspirin) 324 mg PO NOW STA Stop: 12/12/18 18:18 Last Admin: 12/12/18 18:24 Dose: 324 mg Sodium Chloride (Nss 1000ml) 1,000 mls @ 999 mls/hr IV .Q1H1M WILLIAN Stop: 12/12/18 19:00 Last Infusion: 12/12/18 20:13 Dose: 0 mls/hr Admin: 12/12/18 18:24 Dose: 999 mls/hr Medical Decision Making Differential Diagnosis Differential Diagnosis includes but is not limited to dehydration, stroke, anemia, hypoglycemia, hyponatremia, hypernatremia, urinary tract infection, pneumonia, bronchitis, sepsis, gastroenteritis, additional abdominal pathology, metabolic abnormalities and infections. Medical Records Attestation: I reviewed the patient's medical records. Home Medications Current Medication List: was personally reviewed by me Laboratory Data Attestation: I reviewed the patient's lab results. Result diagrams: 12/12/18 18:02 12/12/18 18:02 Lab Results 12/12/18 12/12/18 12/12/18 Range/Units 18:02 18:02 18:04 WBC 10.62 (4.8-10.8) K/uL RBC 4.53 (4.2-5.4) M/uL Hgb 12.5 (12.0-16.0) g/dL Hct 39.7 (37-47) % MCV 87.6 (80-100) fL MCH 27.6 (25-34) pg MCHC 31.5 L (32-36) g/dL RDW Std Deviation 45.7 (36.4-46.3) fL RDW Coeff of Geovanna 14.2 (11.5-14.5) % Plt Count 201 (130-400) K/uL MPV 11.2 H (7.4-10.4) fL Immature Gran % (Auto) 0.2 % Neut % (Auto) 79.6 % Lymph % (Auto) 15.5 % Cedar % (Auto) 4.2 % Eos % (Auto) 0.3 % Baso % (Auto) 0.2 % Immature Gran # (Auto) 0.02 (0.00-0.02) K/uL Neut # (Auto) 8.45 H (1.4-6.5) K/uL Lymph # (Auto) 1.65 (1.2-3.4) K/uL Cedar # (Auto) 0.45 (0.11-0.59) K/uL Eos # (Auto) 0.03 (0-0.5) K/uL Baso # (Auto) 0.02 (0-0.2) K/uL PT (9.0-12.0) Seconds INR (0.9-1.1) Sodium 140 (136-145) mmol/L Potassium 4.2 (3.5-5.1) mmol/L Chloride 109 H (98-107) mmol/L Carbon Dioxide 25 (21-32) mmol/L Anion Gap 6.0 (3-11) BUN 25 H (7-18) mg/dl Creatinine 1.65 H (0.6-1.2) mg/dl Est Cr Clr Drug Dosing 22.1 ml/min Est GFR ( Amer) 31.8 Est GFR (Non-Af Amer) 27.4 BUN/Creatinine Ratio 15.4 (10-20) Glucose 145 H (70-99) mg/dl POC Glucose (70-99) Calcium 8.6 (8.5-10.1) mg/dl Total Bilirubin 0.3 (0.2-1) mg/dl AST 16 (15-37) U/L ALT 17 (12-78) U/L Alkaline Phosphatase 64 (45-117) U/L Troponin I 0.026 (0-0.045) ng/ml Total Protein 7.0 (6.4-8.2) gm/dl Albumin 3.6 (3.4-5.0) gm/dl Globulin 3.4 (2.5-4.0) gm/dl Albumin/Globulin Ratio 1.1 (0.9-2) Lipase 125 (73-393) U/L Urine Color Yellow Urine Appearance Clear (Clear) Urine pH 5.0 (4.5-7.5) Ur Specific [place] 1.008 (1.000-1.030) Urine Protein Negative (Negative) Urine Glucose (UA) Negative (Negative) Urine Ketones Negative (Negative) Urine Blood Negative (Negative) Urine Nitrite Negative (Negative) Urine Bilirubin Negative (Negative) Urine Urobilinogen Negative (Negative) Ur Leukocyte Esterase Negative (Negative) 12/12/18 12/12/18 12/12/18 Range/Units 21:36 21:43 23:09 WBC (4.8-10.8) K/uL RBC (4.2-5.4) M/uL Hgb (12.0-16.0) g/dL Hct (37-47) % MCV (80-100) fL MCH (25-34) pg MCHC (32-36) g/dL RDW Std Deviation (36.4-46.3) fL RDW Coeff of Geovanna (11.5-14.5) % Plt Count (130-400) K/uL MPV (7.4-10.4) fL Immature Gran % (Auto) % Neut % (Auto) % Lymph % (Auto) % Cedar % (Auto) % Eos % (Auto) % Baso % (Auto) % Immature Gran # (Auto) (0.00-0.02) K/uL Neut # (Auto) (1.4-6.5) K/uL Lymph # (Auto) (1.2-3.4) K/uL Cedar # (Auto) (0.11-0.59) K/uL Eos # (Auto) (0-0.5) K/uL Baso # (Auto) (0-0.2) K/uL PT 11.3 (9.0-12.0) Seconds INR 1.1 (0.9-1.1) Sodium (136-145) mmol/L Potassium (3.5-5.1) mmol/L Chloride (98-107) mmol/L Carbon Dioxide (21-32) mmol/L Anion Gap (3-11) BUN (7-18) mg/dl Creatinine (0.6-1.2) mg/dl Est Cr Clr Drug Dosing ml/min Est GFR ( Amer) Est GFR (Non-Af Amer) BUN/Creatinine Ratio (10-20) Glucose (70-99) mg/dl POC Glucose 204 H (70-99) Calcium (8.5-10.1) mg/dl Total Bilirubin (0.2-1) mg/dl AST (15-37) U/L ALT (12-78) U/L Alkaline Phosphatase (45-117) U/L Troponin I 0.035 (0-0.045) ng/ml Total Protein (6.4-8.2) gm/dl Albumin (3.4-5.0) gm/dl Globulin (2.5-4.0) gm/dl Albumin/Globulin Ratio (0.9-2) Lipase (73-393) U/L Urine Color Urine Appearance (Clear) Urine pH (4.5-7.5) Ur Specific [place] (1.000-1.030) Urine Protein (Negative) Urine Glucose (UA) (Negative) Urine Ketones (Negative) Urine Blood (Negative) Urine Nitrite (Negative) Urine Bilirubin (Negative) Urine Urobilinogen (Negative) Ur Leukocyte Esterase (Negative) Imaging Data Radiologist's Impression: Radiology results as stated below per my review and the radiologist's interpretation: XR chest 1V portable HISTORY: 88 years-old Female Chest Pain acute atypical chest pain COMPARISON: Chest radiograph 09/16/2018 TECHNIQUE: Portable AP view of the chest FINDINGS: Cardiac silhouette is enlarged, unchanged. No pneumothorax, large pleural effusion or overt pulmonary edema. Unchanged blunting of the costophrenic angles suggestive of scarring versus trace effusions. Moderate hiatal hernia. Degenerative changes of the shoulders and spine. Left shoulder rotator cuff calcific tendinosis. IMPRESSION: 1. Cardiomegaly without acute process. 2. Hiatal hernia. The above report was generated using voice recognition software. It may contain grammatical, syntax or spelling errors. Electronically signed by: Thomas Pruitt M.D. 12/12/2018 6:20 PM ECG Data Attestation: I personally reviewed and interpreted this ECG as follows: Indication: weakness Rate (beats per minute): 61 Findings: + other (Flipped T-waves anterior leads), + Q waves (Septal), + ST depression (inferior leads, lateral leads), + T-wave inversion (in V2) and + left axis deviation Comparison ECG Date: from (09/16/2018) Change: the following changes noted (T-waves in inferior leads are no worse than previous) Blood Pressure Blood Pressure Findings: Elevated blood pressure Blood Pressure Disposition: further management by hospitalist CARRIE Narrative Patient is an 88-year-old female who presents the ER for presenting to the ER for headache, nausea and feeling gassy. She does not know why she was sent over here by the PCP. There is no report given. She was fairly agitated as of this can assume any questions. Labs were obtained and showed no leukocytosis or anemia. INR was unremarkable. BMP with a creatinine of 1.6. Glucose was slightly elevated 204. LFTs bilirubin and troponin was unremarkable. Lipase was negative. UA was unremarkable. EKG with worsening ST depressions and flipped T waves in the inferior leads as compared to old. Based on this I do favor this the reason why she was sent over. Eventually her daughter was at bedside and notes that she was passed out in the office while getting blood work. Chest x-ray was unremarkable. Of note she had no chest pain or shortness of breath while in the ER. She was given aspirin and fluids. She was admitted to the hospitalist for further workup with EKG changes. She did start to get a headache while she was here. This was not the worst headache of her life. She notes that this feels like her migraines but not as bad. Impression & Plan Shortness of breath, Acute electrocardiogram changes, Nausea Discharge Plan Visit Data *Final* Discharge Date/Time: 12/12/18 20:37 Chief Complaint: Headache ED Provider: Addison Dumont Discharge Problem: Shortness of breath, Acute electrocardiogram changes, Nausea Patient Disposition: Admitted As Inpatient Discharge Instructions Interventions: ED Discharge Assessment Last Done: 12/12/18 20:37 The scribe's documentation has been prepared under my direction and personally reviewed by me in its entirety. I confirm that the note above accurately reflects all work, treatment, procedures, and medical decision making performed by me.
[2018-12-13] MEDS: NITROGLYCERIN 2% OINTMENT 30GM TUBE EXT SCH ×2 (00:15→06:28)
[2018-12-13] MEDS ORDERED: Nursing to Pharmacy Communication ONE (02:17)
[2018-12-13] MEDS: INSULIN ASPART 100 UNITS/ML 3 ML PEN SC SCH ×3 (06:07→17:08)
[2018-12-13] MEDS: HEPARIN SOD 5,000 UNIT/0.5 ML VIAL SQ SCH ×2 (06:08→14:43)
[2018-12-13 06:52] LABS: Hematocrit (blood only) 37.8 % (37-47); Hemoglobin 12.1 g/dL (12.0-16.0); Mean Corpuscular Volume 88.3 fL (80-100); Mean Platelet Volume 10.4 fL (7.4-10.4); Platelet Count 171 K/uL (130-400); RDW Coefficient of Variation 14.4 % (11.5-14.5); RDW Standard Deviation 46.6 fL (36.4-46.3); Red Blood Count 4.28 M/uL (4.2-5.4); White Blood Count 8.79 K/uL (4.8-10.8)
[2018-12-13 06:57] LABS: Estimated Average Glucose 171 mg/dl; Hemoglobin A1C 7.6 % (4.5-5.6)
[2018-12-13 07:21] LABS: BUN Creatinine Ratio 15.9 (10-20); Calcium 8.2 mg/dl (8.5-10.1); Creatinine Clr Calc Pharmacy 24.6 ml/min; Est GFR (African American) 36.3; Est GFR (Non-African American) 31.3
[2018-12-13 07:25] LABS: Troponin I 0.028 ng/ml (0-0.045)
[2018-12-13] MEDS: DOCUSATE SODIUM 100 MG CAP PO SCH (08:52)
[2018-12-13] MEDS ORDERED: OMEGA-3 (PURIFIED FISH OIL) 1 GM CAP PO SCH (09:00)
[2018-12-13] MEDS ORDERED: ISOSORBIDE MONO EXTENDED REL 30 MG TABCR PO SCH (09:00)
[2018-12-13] MEDS ORDERED: ARMOUR THYROID 30 MG TAB PO SCH (09:00)
[2018-12-13] MEDS ORDERED: NON-FORMULARY MEDICATION (Flaxseed Oil [Flaxseed Oil] 1,000 MG) PO SCH (09:00)
[2018-12-13] MEDS ORDERED: CHOLECALCIFEROL 1,000 UNITS TAB PO SCH (09:00)
[2018-12-13] MEDS ORDERED: ATORVASTATIN 20 MG TAB PO SCH (09:00)
[2018-12-13] MEDS ORDERED: ASPIRIN 81 MG ECTAB PO SCH (09:00)
[2018-12-13] MEDS ORDERED: predniSONE 5 MG TAB PO SCH (09:00)
[2018-12-13] MEDS ORDERED: LISINOPRIL 10 MG TAB PO SCH (09:00)
[2018-12-13] MEDS: LANSOPRAZOLE 30 MG SOLTAB PO SCH (09:29)
[2018-12-13] MEDS ORDERED: AMLODIPINE BESYLATE 5 MG TAB PO ONE (11:12)
--- NOTE | 2018-12-13 11:20 | Cardiology Consultation ---
Date of Consultation December 13, 2018 Assessment & Plan (1) Acute electrocardiogram changes: These are probably old changes due to a conduction abnormality. I reviewed her echocardiogram and she has no new wall motion abnormalities on the echocardiogram, at least resting was unremarkable except for some LVH. At this point I do not believe any additional cardiac testing is indicated. I would try to get the patient's blood pressure under better control. She mentioned to me on several occasions during my interview that she has her elderly at home with Alzheimer's and this is creating a lot of stress. You may consider having social service see her as she may require additional help at home. (2) Left bundle branch block: (3) CKD (chronic kidney disease), stage III: (4) DM type 2 (diabetes mellitus, type 2): (5) Hypertensive urgency: I have adjusted her medications. I have added amlodipine 5 mg daily. She presented with a headache and I do not believe nitrates are a good choice for her. I discontinued her Nitropaste. I also increased her lisinopril to 20 mg daily. History of Present Illness Attending Physician: Kristopher Snyder MD History of Present Illness This is an 88-year-old female who is under a lot of stress at home due to her elderly with Alzheimer's. She is taking care of him with the help of her daughter. On the day of admission she had a headache with some nausea and saw her PCP. An EKG was obtained and she was sent to the emergency department due to changes. My review of the EKG indicates a conduction abnormality most likely a left bundle branch block and really no significant change in the EKG. After admission she has had borderline elevation of cardiac troponins which is probably chronic as she has had previous studies in the past that have been mildly elevated. This is most likely the result of stage III kidney disease. In August of last year she was admitted with some chest discomfort and an abnormal EKG to [facility]. While there she had a resting echocardiogram and a dobutamine stress test. The resting echocardiogram is reported to have been unremarkable. The stress portion of the study however was said to be of poor quality and possibly positive. After discharge from [facility] she was then readmitted to this hospital with a pneumonia and eventually saw Dr. Haq through our clinic in September. According to Dr. Haq's note, the patient was doing well and recovering from her pneumonia and he felt no additional cardiac workup was indicated. One final note, in addition to her above symptoms patient also was markedly hypertensive on admission. At present her blood pressure is better controlled. Allergies Allergy/AdvReac Type Severity Reaction Status Date / Time [id number] Allergy Severe RASH Unverified 12/12/18 18:31 calamine Allergy Mild RASH WORSE Unverified 12/12/18 18:31 tetanus toxoid, adsorbed Allergy Mild Verified 12/12/18 18:31 cephalexin Allergy Unknown RASH Verified 12/12/18 18:31 Home Medications Home Medications Medication Instructions Recorded Confirmed Type aspirin [Aspirin Low Dose] 81 mg PO DAILY 12/12/18 12/12/18 History atorvastatin 20 mg PO DAILY 12/12/18 12/12/18 History cholecalciferol (vitamin D3) 2,000 unit PO DAILY 12/12/18 12/12/18 History [Vitamin D3] docusate sodium [Doc-Q-Lace] 100 mg PO BID 12/12/18 12/12/18 History flaxseed oil 1,000 mg PO DAILY 12/12/18 12/12/18 History isosorbide mononitrate 30 mg PO DAILY 12/12/18 12/12/18 History lansoprazole 30 mg PO BID 12/12/18 12/12/18 History lisinopril 10 mg PO DAILY 12/12/18 12/12/18 History mesalamine [Asacol HD] 800 mg PO DAILY 12/12/18 12/12/18 History omega [id number]-[id number]-fish oil [Fish Oil] 1 cap PO DAILY 12/12/18 12/12/18 History prednisone 5 mg PO DAILY 12/12/18 12/12/18 History sennosides [senna] 8.6 mg PO DAILY PRN 12/12/18 12/12/18 History sitagliptin 100 mg PO DAILY 12/12/18 12/12/18 History thyroid (pork) [[place] Thyroid] 30 mg PO Q2D 12/12/18 12/12/18 History thyroid (pork) [[place] Thyroid] 60 mg PO Q2D 12/12/18 12/12/18 History Patient History Medical History CKD (chronic kidney disease), stage III (Chronic) Ulcerative colitis (Chronic) Hypertension (Chronic) Coronary artery disease (Chronic) Hiatal hernia (Chronic) GERD (gastroesophageal reflux disease) (Chronic) Polymyalgia rheumatica (Chronic) Left bundle branch block (Chronic) Hypothyroidism (Chronic) History of cervical cancer (Chronic) NSTEMI (non-ST elevated myocardial infarction) (Inactive) Silent myocardial infarction (Inactive ~1989) Surgical History History of tonsillectomy (Chronic) History of partial hysterectomy (Chronic) H/O hemorrhoidectomy (Chronic) Status post appendectomy (Chronic) Status post cholecystectomy (Chronic) Status post total knee replacement (Chronic) Family History Other Family history non-contributory Social History Current Living Situation: Spouse Other Information That Helps Us Care for You: No Feels Safe at Home: Yes Safety Concerns: Feels Safe At This Time Smoking Status: Former smoker Do You Dip or Chew Tobacco: No Second Hand Exposure: No Tobacco Cessation Education Requested by Patient: No Hx Alcohol Use: No Hx Substance Use: No Beliefs That Will Affect Care: None Preferred Language: Afghan Communication Ability: Effective Cut In Worker Required: No Review of Systems Review of Systems: See HPI for pertinent positives. All other 10 point review of systems are negative. Physical Exam Vital Signs (Past 24 Hours): Last Vital Signs Temp 36.5 C 12/13/18 07:56 Pulse 60 12/13/18 08:00 Resp 18 12/13/18 07:56 BP 161/67 H 12/13/18 07:56 Pulse Ox 92 12/13/18 07:56 Physical Exam: General: no acute distress and stated age Head: normocephalic, no masses, lesions, tenderness or abnormalities Eyes: conjunctiva are pink and non-injected, sclera clear Neck: supple, no adenopathy, no bruits, normal jugular venous pulse, no hepatojugular reflux Chest: normal shape and normal respiratory effort Lungs: clear to auscultation and percussion Cardiac Exam: - regular rate & rhythm, no murmurs gallops or rubs - normal S1, normal S2 Pulses: 2(+) throughout Abdomen: abdomen soft, non-tender, no abnormal masses and no hepatosplenomegaly Musculoskeletal: no gait disturbance, no joint inflammation, no deforming arthritis Extremities: no edema and no cyanosis Neuro: grossly normal exam Results & Data Laboratory Results Laboratory Results - last 24 hr 12/12/18 12/12/18 12/12/18 18:02 18:02 18:04 WBC 10.62 RBC 4.53 Hgb 12.5 Hct 39.7 MCV 87.6 MCH 27.6 MCHC 31.5 L RDW Std Deviation 45.7 RDW Coeff of Geovanna 14.2 Plt Count 201 MPV 11.2 H Immature Gran % (Auto) 0.2 Neut % (Auto) 79.6 Lymph % (Auto) 15.5 [place] % (Auto) 4.2 Eos % (Auto) 0.3 Baso % (Auto) 0.2 Immature Gran # (Auto) 0.02 Neut # (Auto) 8.45 H Lymph # (Auto) 1.65 [place] # (Auto) 0.45 Eos # (Auto) 0.03 Baso # (Auto) 0.02 PT INR Sodium 140 Potassium 4.2 Chloride 109 H Carbon Dioxide 25 Anion Gap 6.0 BUN 25 H Creatinine 1.65 H Est Cr Clr Drug Dosing 22.1 Est GFR ( Amer) 31.8 Est GFR (Non-Af Amer) 27.4 BUN/Creatinine Ratio 15.4 Glucose 145 H POC Glucose Estimat Average Glucose Hemoglobin A1c Calcium 8.6 Total Bilirubin 0.3 AST 16 ALT 17 Alkaline Phosphatase 64 Troponin I 0.026 Total Protein 7.0 Albumin 3.6 Globulin 3.4 Albumin/Globulin Ratio 1.1 Lipase 125 Urine Color Yellow Urine Appearance Clear Urine pH 5.0 Ur Specific [place] 1.008 Urine Protein Negative Urine Glucose (UA) Negative Urine Ketones Negative Urine Blood Negative Urine Nitrite Negative Urine Bilirubin Negative Urine Urobilinogen Negative Ur Leukocyte Esterase Negative 12/12/18 12/12/18 12/12/18 21:36 21:43 23:09 WBC RBC Hgb Hct MCV MCH MCHC RDW Std Deviation RDW Coeff of [place]ovanna Plt Count MPV Immature Gran % (Auto) Neut % (Auto) Lymph % (Auto) [place] % (Auto) Eos % (Auto) Baso % (Auto) Immature Gran # (Auto) Neut # (Auto) Lymph # (Auto) [place] # (Auto) Eos # (Auto) Baso # (Auto) PT 11.3 INR 1.1 Sodium Potassium Chloride Carbon Dioxide Anion Gap BUN Creatinine Est Cr Clr Drug Dosing Est GFR ( Amer) Est GFR (Non-Af Amer) BUN/Creatinine Ratio Glucose POC Glucose 204 H Estimat Average Glucose Hemoglobin A1c Calcium Total Bilirubin AST ALT Alkaline Phosphatase Troponin I 0.035 Total Protein Albumin Globulin Albumin/Globulin Ratio Lipase Urine Color Urine Appearance Urine pH Ur Specific [place] Urine Protein Urine Glucose (UA) Urine Ketones Urine Blood Urine Nitrite Urine Bilirubin Urine Urobilinogen Ur Leukocyte Esterase 12/13/18 12/13/18 12/13/18 06:06 06:35 06:35 WBC 8.79 RBC 4.28 Hgb 12.1 Hct 37.8 MCV 88.3 MCH 28.3 MCHC 32.0 RDW Std Deviation 46.6 H RDW Coeff of [place]ov[place] 14.4 Plt Count 171 MPV 10.4 Immature Gran % (Auto) Neut % (Auto) Lymph % (Auto) [place] % (Auto) Eos % (Auto) Baso % (Auto) Immature Gran # (Auto) Neut # (Auto) Lymph # (Auto) [place] # (Auto) Eos # (Auto) Baso # (Auto) PT INR Sodium 143 Potassium 4.0 Chloride 112 H Carbon Dioxide 24 Anion Gap 7.0 BUN 24 H Creatinine 1.48 H Est Cr Clr Drug Dosing 24.6 Est GFR ( Amer) 36.3 Est GFR (Non-Af Amer) 31.3 BUN/Creatinine Ratio 15.9 Glucose 87 POC Glucose 86 Estimat Average Glucose Hemoglobin A1c Calcium 8.2 L Total Bilirubin AST ALT Alkaline Phosphatase Troponin I 0.028 Total Protein Albumin Globulin Albumin/Globulin Ratio Lipase Urine Color Urine Appearance Urine pH Ur Specific [place] Urine Protein Urine Glucose (UA) Urine Ketones Urine Blood Urine Nitrite Urine Bilirubin Urine Urobilinogen Ur Leukocyte Esterase 12/13/18 06:35 WBC RBC Hgb Hct MCV MCH MCHC RDW Std Deviation RDW Coeff of Geovanna Plt Count MPV Immature Gran % (Auto) Neut % (Auto) Lymph % (Auto) [place] % (Auto) Eos % (Auto) Baso % (Auto) Immature Gran # (Auto) Neut # (Auto) Lymph # (Auto) [place] # (Auto) Eos # (Auto) Baso # (Auto) PT INR Sodium Potassium Chloride Carbon Dioxide Anion Gap BUN Creatinine Est Cr Clr Drug Dosing Est GFR ( Amer) Est GFR (Non-Af Amer) BUN/Creatinine Ratio Glucose POC Glucose Estimat Average Glucose 171 Hemoglobin A1c 7.6 H Calcium Total Bilirubin AST ALT Alkaline Phosphatase Troponin I Total Protein Albumin Globulin Albumin/Globulin Ratio Lipase Urine Color Urine Appearance Urine pH Ur Specific [place] Urine Protein Urine Glucose (UA) Urine Ketones Urine Blood Urine Nitrite Urine Bilirubin Urine Urobilinogen Ur Leukocyte Esterase Medications Administered Current Inpatient Medications Acetaminophen (Tylenol) 650 mg PO Q4H PRN PRN Reason: Pain or Fever Stop: 01/11/19 21:06 Amlodipine Besylate (Norvasc) 5 mg PO QAM [facility] Stop: 01/13/19 08:59 Aspirin (Ecotrin Ectab) 81 mg PO DAILY [facility] Stop: 01/12/19 08:59 Last Admin: 12/13/18 08:46 Dose: 81 mg Atorvastatin Calcium (Lipitor) 20 mg PO DAILY [facility] Stop: 01/12/19 08:59 Last Admin: 12/13/18 08:46 Dose: 20 mg Dextrose (Dextrose 50%) 25 - 50 ml IV UD PRN; Protocol PRN Reason: Hypoglycemia Protocol Stop: 01/11/19 21:06 Docusate Sodium (Colace) 100 mg PO BID [facility]IAN Stop: 01/11/19 21:59 Last Admin: 12/13/18 08:52 Dose: 100 mg Fish Oil ([place] (Purified Fish Oil)) 1 gm PO DAILY [facility] Stop: 01/12/19 08:59 Last Admin: 12/13/18 08:46 Dose: 1 gm Glucagon (Glucagen) 1 mg SQ UD PRN; Protocol PRN Reason: Hypoglycemia Protocol Stop: 01/11/19 21:06 Glucose (Dex4 Glucose) 4 - 8 tabs PO UD PRN; Protocol PRN Reason: Hypoglycemia Protocol Stop: 01/11/19 21:06 Glucose (Glucose 40%) 15 - 30 gm PO UD PRN; Protocol PRN Reason: Hypoglycemia Protocol Stop: 01/11/19 21:06 Heparin Sodium (Porcine) (Heparin Sodium (Porcine)) 5,000 units SQ Q8 [facility] Stop: 01/12/19 05:59 Last Admin: 12/13/18 06:08 Dose: 5,000 units Insulin Aspart (Novolog Flexpen) 0 units SC Q6 [facility] Stop: 01/12/19 05:59 Last Admin: 12/13/18 06:07 Dose: Not Given Isosorbide Mononitrate (Imdur Extended Rel) 30 mg PO DAILY [facility] Stop: 01/12/19 08:59 Last Admin: 12/13/18 08:46 Dose: 30 mg Lansoprazole (Prevacid) 30 mg PO BID [facility] Stop: 01/11/19 21:59 Last Admin: 12/13/18 09:29 Dose: 30 mg Lisinopril (Zestril) 20 mg PO DAILY [facility] Stop: 01/13/19 08:59 Miscellaneous (Order Awaiting Action) 1 ea N/A QS [facility] Stop: 01/12/19 00:00 Last Admin: 12/13/18 07:31 Dose: Not Given Miscellaneous (Carbohydrates For Hypoglycemia) 15 - 30 gm PO UD PRN PRN Reason: Hypoglycemia Treatment Stop: 01/11/19 21:06 Nitroglycerin (Nitrostat) 0.4 mg SL UD PRN PRN Reason: Chest Pain Stop: 01/11/19 21:06 Prednisone (Prednisone) 5 mg PO DAILY [facility] Stop: 01/12/19 08:59 Last Admin: 12/13/18 08:46 Dose: 5 mg Sennosides (Senokot) 8.6 mg PO DAILY PRN PRN Reason: Constipation Stop: 01/11/19 21:06 Thyroid ([place] Thyroid) 30 mg PO Q2D [facility] Stop: 01/13/19 08:59 Last Admin: 12/13/18 08:45 Dose: 30 mg Thyroid ([place] Thyroid) 60 mg PO Q2D [facility] Stop: 01/12/19 08:59 Last Admin: 12/13/18 08:46 Dose: 60 mg Vitamin D (Vitamin D3) 2,000 units PO DAILY [facility] Stop: 01/12/19 08:59 Last Admin: 12/13/18 08:46 Dose: 2,000 units
[2018-12-13] MEDS ORDERED: METFORMIN HCL 500 MG TAB PO SCH (15:30)
[2018-12-13 15:44] VITALS: TEMP 98.2; O2SAT 92
--- NOTE | 2018-12-13 15:54 | Hospitalist Progress Note ---
Date of Service December 13, 2018 Assessment & Plan (1) Acute electrocardiogram changes: -Admit to telemetry -Patient referred to ED by PCP for evaluation of EKG changes, headache, nausea -In the ED, EKG demonstrates deep T wave inversions inferiorly -No reports of chest pain, initial troponin negative -Questionable history of CAD, patient reports "silent VT" ~ 1989, also underwent stress test at [facility] in 2018 that was questionably abnormal evaluated for concern of Acute electrocardiogram changes Left bundle branch block Hypertensive urgency 12/13/18 Cardiology reviewed echocardiogram and patient has no new wall motion abnormalities on the echocardiogram, at least resting was unremarkable except for some LVH; Unit Aide does not believe any additional cardiac testing is indicated. (2) Hypertension: Hypertensive urgency BP elevated on arrival at 185/69 on 12/12/18; Continue home doses of isosorbide, lisinopril, Nitropaste given -Hypertensive urgency has resolved by 12/13/18 Unit Aide started patient on increased dose of blood pressure medications Lisinopril as 20 mg daily and Amlodipine 5 mg daily These prescriptions were sent electronically to patient's pharmacy [facility] on [address], [place] [address] (3) DM type 2 (diabetes mellitus, type 2): Diabetes Mellitus Type 2 not on current insulin claudia HbA1c 7.6 patient takes sitagliptin at home discharged medication made for metformin and patient plans to discuss with her family medical doctor about taking 2 glucose control agents or just take sitagliptin only (4) CKD (chronic kidney disease), stage III: renal function at baseline (5) Ulcerative colitis: History of ulcerative colitis without active flare -Continue mesalamine (6) GERD (gastroesophageal reflux disease): -Continue PPI (7) Polymyalgia rheumatica: -Continue chronic prednisone 5 mg daily (8) Hypothyroidism: -Continue [place] Thyroid (9) DVT prophylaxis: -SQ heparin while inpatient Discharge Diagnosis evaluated for concern of Acute electrocardiogram changes Left bundle branch block CKD (chronic kidney disease), stage III DM type 2 (diabetes mellitus, type 2) Hypertensive urgency Discharge Disposition: Patient discharge to home and follow up with primary care doctor with new medical presrciptions Subjective Patient denies chest pain. reports she is feeling well. denies shortness of breath. denies headache. denies lightheadedness, denies abdominal pain, denies vomiting Physical Exam 2 Vital Signs (Past 24 Hours): Last Vital Signs Temp 36.8 C 12/13/18 15:43 Pulse 63 12/13/18 15:43 Resp 18 12/13/18 15:43 BP 119/67 12/13/18 15:43 Pulse Ox 92 12/13/18 15:43 Constitutional: WD/WN, vitals as above Eyes: PERRL, conjunctivae normal, anicteric sclerae EOM intact bilaterally ENMT: external ear and nose normal, oropharynx normal Neck: trachea midline, no thyromegaly Respiratory: normal respiratory effort, lungs clear to auscultation Cardiovascular: Rate/Rhythm: regular rate Gastrointestinal (Abdomen): normal bowel sounds, soft, nontender, no hepatosplenomegaly Musculoskeletal: no cyanosis or clubbing, extremities motor strength 5/5 Head/Neck/Chest: normocephalic and head atraumatic Neurologic: PERRL, EOMI, accommodation nl, no face palsy, no dysarthria CN' s II-XI intact bilaterally
--- NOTE | 2018-12-13 16:04 | Discharge Summary ---
Date of Service December 13, 2018 Admission HPI Per Admitting Provider 88-year-old female who was sent to the ED by her PCP for evaluation of headache , nausea, EKG changes. Patient reports that shortly after waking up this morning, she developed a headache that she describes as across her eyes, top of her head, and both sides of her neck radiating up into the back of her head. She also reports associated nausea and reflux-like symptoms. Patient reports she has history of migraines and the headache she had today was not as severe as her typical migraines in the past. Patient reports that she generally did not feel well. She went to her PCP who obtained an EKG that noted changes. She also reports a near syncopal event while having blood work drawn there. Patient reports that yesterday she felt as though she was getting a head cold however otherwise has been in her usual state of health. Reports being under a large amount of stress due to her and his Alzheimer's. She denies chest pain, pressure, palpitations, shortness of breath. No associated diaphoresis or syncopal event. She denies fevers and chills. She notes urinary frequency today. In the ED, patient's EKG demonstrates deep T wave inversions inferiorly. Initial troponin is 0.026. Patient is hypertensive with BP 185/69. She was given a full dose aspirin and IVF. Admission Exam Per Admitting Provider Constitutional: WD/WN, vitals as above Eyes: PERRL, conjunctivae normal, anicteric sclerae ENMT: external ear and nose normal, oropharynx normal Respiratory: normal respiratory effort, lungs clear to auscultation Cardiovascular: Rate/Rhythm: regular rate and regular rhythm Vessels: normal peripheral pulses Extremities: + edema (Trace edema BLE) Gastrointestinal (Abdomen): normal bowel sounds, soft, nontender, no hepatosplenomegaly Musculoskeletal: no cyanosis or clubbing, extremities motor strength 5/5 Skin: no rashes, warm and dry Neurologic: PERRL, EOMI, accommodation nl, no face palsy, no dysarthria Psychiatric: A+Ox3, euthymic affect Principal Diagnosis evaluated for concern of Acute electrocardiogram changes Left bundle branch block CKD (chronic kidney disease), stage III DM type 2 (diabetes mellitus, type 2) Hypertensive urgency Discharge Exam Constitutional WD/WN, vitals as above Eyes PERRL, conjunctivae normal, anicteric sclerae EOM intact bilaterally ENMT external ear and nose normal, oropharynx normal Neck trachea midline, no thyromegaly Respiratory normal respiratory effort, lungs clear to auscultation Cardiovascular Rate/Rhythm: regular rate Gastrointestinal (Abdomen) normal bowel sounds, soft, nontender, no hepatosplenomegaly Musculoskeletal no cyanosis or clubbing, extremities motor strength 5/5 Head/Neck/Chest: normocephalic and head atraumatic Neurologic PERRL, EOMI, accommodation nl, no face palsy, no dysarthria CN's II-XI intact bilaterally Discharge Data Allergies Allergy/AdvReac Type Severity Reaction Status Date / Time technetium-99m Allergy Severe RASH Unverified 12/12/18 18:31 calamine Allergy Mild RASH WORSE Unverified 12/12/18 18:31 tetanus toxoid, adsorbed Allergy Mild Verified 12/12/18 18:31 cephalexin Allergy Unknown RASH Verified 12/12/18 18:31 Consultations 12/12/18 19:02 ED Decision to Admit Stat 12/12/18 21:07 Consult Cardiology Routine Consult Case Management - Discharge Planning Routine Hospital Course (1) Acute electrocardiogram changes: -Admit to telemetry -Patient referred to ED by PCP for evaluation of EKG changes, headache, nausea -In the ED, EKG demonstrates deep T wave inversions inferiorly -No reports of chest pain, initial troponin negative -Questionable history of CAD, patient reports "silent NH" ~ 1989, also underwent stress test at [facility] in 2018 that was questionably abnormal evaluated for concern of Acute electrocardiogram changes Left bundle branch block Hypertensive urgency 12/13/18 Cardiology reviewed echocardiogram and patient has no new wall motion abnormalities on the echocardiogram, at least resting was unremarkable except for some LVH; Purchasing Manager does not believe any additional cardiac testing is indicated. (2) Hypertension: Hypertensive urgency BP elevated on arrival at 185/69 on 12/12/18; Continue home doses of isosorbide, lisinopril, Nitropaste given -Hypertensive urgency has resolved by 12/13/18 Purchasing Manager started patient on increased dose of blood pressure medications Lisinopril as 20 mg daily and Amlodipine 5 mg daily These prescriptions were sent electronically to patient's pharmacy [facility] on [address] , [place] [address] (3) DM type 2 (diabetes mellitus, type 2): Diabetes Mellitus Type 2 not on current insulin claudia HbA1c 7.6 patient takes sitagliptin at home discharged medication made for metformin and patient plans to discuss with her family medical doctor about taking 2 glucose control agents or just take sitagliptin only (4) CKD (chronic kidney disease), stage III: renal function at baseline (5) Ulcerative colitis: History of ulcerative colitis without active flare -Continue mesalamine (6) GERD (gastroesophageal reflux disease): -Continue PPI (7) Polymyalgia rheumatica: -Continue chronic prednisone 5 mg daily (8) Hypothyroidism: -Continue [place] Thyroid (9) DVT prophylaxis: -SQ heparin while inpatient Discharge Diagnosis evaluated for concern of Acute electrocardiogram changes Left bundle branch block CKD (chronic kidney disease), stage III DM type 2 (diabetes mellitus, type 2) Hypertensive urgency Discharge Disposition: Patient discharge to home and follow up with primary care doctor with new medical presrciptions Total Time Total Time Spent Total Time Spent (In Minutes): 40 minutes Total Time Includes: Examination of the Patient, Discharge Planning and Medication Reconciliation Discharge Plan Discharge Items Patient Disposition: Home - Self-Care Reason For Visit: EKG CHANGES Discharge Diagnosis: evaluated for concern of Acute electrocardiogram changes Left bundle branch block CKD (chronic kidney disease), stage III DM type 2 (diabetes mellitus, type 2) Hypertensive urgency Condition: Good Discharge Goals: Improve disease control Activity: Resume your previous activity Non-emergency contact: Primary Care Provider Call non-emergency contact if: you have any medication questions Diet: Carb Consistent or DM2 and Heart Healthy Addtl Provider Instructions: Patient was evaluated by cardiology service at [facility] Cardiology reviewed echocardiogram and patient has no new wall motion abnormalities on the echocardiogram, at least resting was unremarkable except for some LVH; Purchasing Manager does not believe any additional cardiac testing is indicated. Purchasing Manager started patient on increased dose of blood pressure medications Lisinopril as 20 mg daily and Amlodipine 5 mg daily Patient has hbA1c of 7.6 has diabetes mellitus type 2. Metformin prescription made These prescriptions were sent electronically to patient's pharmacy [facility] on [address] [place] [address] Patient should follow up with primary care doctor in 1 week Prescriptions: New lisinopril 20 mg Tablet 20 mg PO DAILY 30 Days Qty: 30 RF: 0 amlodipine [Norvasc] 5 mg Tablet 5 mg PO QAM 30 Days Qty: 30 RF: 0 metformin [Glucophage] 500 mg Tablet 500 mg PO DAILYBD 30 Days Qty: 30 RF: 0 Continue sennosides [senna] 8.6 mg Tablet 8.6 mg PO DAILY PRN (Reason: Constipation) RF: 0 atorvastatin 20 mg tablet 20 mg PO DAILY RF: 0 isosorbide mononitrate 30 mg tablet extended release 24 hr 30 mg PO DAILY RF: 0 prednisone 5 mg Tablet 5 mg PO DAILY RF: 0 aspirin [Aspirin Low Dose] 81 mg Tablet,Delayed Release (Dr/Ec) 81 mg PO DAILY RF: 0 flaxseed oil 1,000 mg Capsule 1,000 mg PO DAILY RF: 0 lansoprazole 30 mg capsule,delayed release(DR/EC) 30 mg PO BID RF: 0 docusate sodium [Doc-Q-Lace] 100 mg Capsule 100 mg PO BID RF: 0 sitagliptin 100 mg Tablet 100 mg PO DAILY RF: 0 cholecalciferol (vitamin D3) [Vitamin D3] 2,000 unit Capsule 2,000 unit PO DAILY RF: 0 mesalamine [Asacol HD] 800 mg Tablet,Delayed Release (Dr/Ec) 800 mg PO DAILY RF: 0 thyroid (pork) [Morrow Thyroid] 30 mg tablet 30 mg PO Q2D RF: 0 thyroid (pork) [Morrow Thyroid] 60 mg tablet 60 mg PO Q2D RF: 0 omega 0-[id number]-jqc-fish oil [Fish Oil] 900-1,400 mg Capsule,Delayed Release(Dr/Ec ) 1 cap PO DAILY RF: 0 Discontinued lisinopril 10 mg Tablet 10 mg PO DAILY RF: 0 Stand-Alone Forms: [facility] Discharge Orders: Discharge Order (Routine); Ordered 12/13/18 Ordered By: Kristopher Snyder Admission Data Admit Date/Time: 12/12/18 20:03 Attending Provider: Kristopher Snyder Admit Provider: Dylon Greenberg Primary Care Provider: Claudy Kingsley Other Providers: Dylon Greenberg ; Christopher Soria Service: Telemetry
[2018-12-13 17:19] VITALS: BP 148/65; PULSE 63
[2018-12-14] MEDS ORDERED: AMLODIPINE BESYLATE 5 MG TAB PO SCH (09:00)
[2018-12-14] MEDS ORDERED: ARMOUR THYROID 30 MG TAB PO SCH (09:00)
[2018-12-14] MEDS ORDERED: LISINOPRIL 20 MG TAB PO SCH (09:00)
== END 2018-12-13 17:57 | disposition home or self-care (01) ==
LOC: 2S 17:35 → ED 17:35 → 2S 20:37
DX: N18.3 Chronic kidney disease, stage 3 (moderate); K21.9 Gastro-esophageal reflux disease without esophagitis; Z88.7 Allergy status to serum and vaccine; K51.90 Ulcerative colitis, unspecified, without complications; I12.9 Hypertensive chronic kidney disease with stage 1 through stage 4 chronic kidney disease, or unspecified chronic kidney disease; Z79.82 Long term (current) use of aspirin; I44.7 Left bundle-branch block, unspecified; E03.9 Hypothyroidism, unspecified; M35.3 Polymyalgia rheumatica; E11.22 Type 2 diabetes mellitus with diabetic chronic kidney disease; Z88.8 Allergy status to other drugs, medicaments and biological substances; I16.0 Hypertensive urgency; Z88.1 Allergy status to other antibiotic agents; I25.2 Old myocardial infarction

== ENCOUNTER 2019-05-20 06:56 | Inpatient (IN) ==
--- OUTSIDE RECORDS SUMMARY | 2019-05-20 06:58 | External Medical Summary | Continuity of Care Document ---
:1930 Author Name Raza Mane Address Unavailable Unavailable , Care Team Providers Name Role Phone Toni Ledesma M.D. Unavailable [email or web address] WHITT Unavailable Unavailable Unavailable Unavailable Unavailable Assessments Assessed Problems:Internal hemorrhoids Problems Abdominal pain, RLQ (right lower quadrant) (789.03) (R10.31) Hyperlipidemia (272.4) (E78.5) Incisional hernia (553.21) (K43.2) Internal hemorrhoids (455.0) (K64.8) Hypertension (401.9) (I10) Hypothyroidism (244.9) (E03.9) Chronic reflux esophagitis (530.11) (K21.0) Allergies and Adverse Reactions Calamine LOTN (Allergy) DOBUTamine HCl SOLN (Allergy) Reaction: Rash TETANUS (Allergy) Medications Vitamin D CAPS Refills: 0 Senna S TABS Refills: 0 Colace CAPS Refills: 0 Zantac TABS Refills: 0 Lisinopril TABS Refills: 0 Thyroid 30 MG Oral Tablet Refills: 0 predniSONE 5 MG Oral Tablet Refills: 0 [place] Thyroid 30 MG Oral Tablet; take 30 mg on odd days; 60 mg on even days Refills: 0 Prevacid 30 MG Oral Capsule Delayed Release Refills: 0 Asacol 400 MG TBEC; TAKE 2 TABLET Bedtime Refills: 0 Aspirin 81 MG TABS Refills: 0 Vitamin E 400 UNIT Oral Capsule Refills: 0 Citracal/Vitamin D TABS; vit D 500 iu; calcum 630 mg -- 2 da tim Refills: 0 Vitamin C 500 MG Oral Tablet; Take 1 tablet daily Refills: 0 Garlic CAPS; TAKE 1250 MG Daily Refills: 0 Flax Seed Oil 1000 MG Oral Capsule; TAKE 1 CAPSULE Daily Refills: 0 [place] 3 CAPS; TAKE 500 MG Daily Refills: 0 Multivitamins TABS Refills: 0 Reclast 5 MG/100ML Intravenous Solution Refills: 0 Procedures History of Cataract Surgery Status: Comp leted 22-Oct-2004 0:00 History of Hysterectomy Status: Complete d History of Gallbladder Surgery Status: C ompleted History of Appendectomy Status: Complete d History of Incisional Hernia Repair Stat us: Completed History of Knee Replacement Status: Comp leted Immunizations Immunizations not documented Family History Father Family history of Acute Myocardial Infarction (V17.3) Status : Active Grandmother Family history of Diabetes Mellitus (V18.0) Status: Active Family history of Hypertension (V17.49) Status: Active Sister Family history of Crohn's Disease Status: Active Family history of Acute Myocardial Infarction (V17.3) Status : Active Family history of Hypertension (V17.49) Status: Active Social History - Smoking Status Never smoker Plan of Treatment Planned Observations Planned Goals not documented Results No Known Results Results not documented Encounters Appointment; Claudy Ledesma M.D. 13-Mar-2013 12:30 Encounter Diagnosis: Problem not documented
[2019-05-20] MEDS ORDERED: ACETAMINOPHEN 65 ML IV ONE (07:57)
--- NOTE | 2019-05-20 07:58 | Emergency Department Note ---
ED Visit Note I contributed to the care of this patient under the supervision of Dr. Ramos . Resident Activity Tracking Resident Involvement: Resident Care Provided Care Provided: Adult ED : Compression fracture of vertebral column Qualifiers: Encounter type: initial encounter Fracture of vertebra location: lumbar Lumbar vertebra fracture level: L4 Qualified Code(s): S32.040A - Wedge compression fracture of fourth lumbar vertebra, initial encounter for closed fracture
[2019-05-20 08:10] LABS: Basophils # (auto) 0.03 K/uL (0-0.2); Basophils % (auto) 0.3 %; Eosinophils # (auto) 0.12 K/uL (0-0.5); Eosinophils % (auto) 1.1 %; Hematocrit (blood only) 40.4 % (37-47); Immature Granulocytes # (auto) 0.05 K/uL (0.00-0.02); Immature Granulocytes % (auto) 0.5 %; Lymphocytes # (auto) 4.12 K/uL (1.2-3.4); Lymphocytes % (auto) 39.3 %; Mean Corpuscular Hgb Conc 32.2 g/dL (32-36); Mean Corpuscular Volume 87.4 fL (80-100); Mean Platelet Volume 10.5 fL (7.4-10.4); Monocytes # (auto) 0.98 K/uL (0.11-0.59); Monocytes % (auto) 9.3 %; Neutrophils # (auto) 5.19 K/uL (1.4-6.5); Neutrophils % (auto) 49.5 %; Platelet Count 193 K/uL (130-400); RDW Coefficient of Variation 14.4 % (11.5-14.5); Red Blood Count 4.62 M/uL (4.2-5.4); White Blood Count 10.49 K/uL (4.8-10.8)
[2019-05-20 08:17] LABS: Albumin Level 3.8 gm/dl (3.4-5.0); BUN Creatinine Ratio 17.6 (10-20); Calcium 9.3 mg/dl (8.5-10.1); Creatinine Clr Calc Pharmacy 19.9 ml/min; Est GFR (African American) 31.1; Est GFR (Non-African American) 26.8; Potassium 4.5 mmol/L (3.5-5.1)
[2019-05-20 08:20] LABS: Albumin Globulin Ratio 1.1 (0.9-2); Bilirubin,Total 0.3 mg/dl (0.2-1); Globulin 3.4 gm/dl (2.5-4.0); Total Protein 7.2 gm/dl (6.4-8.2)
--- NOTE | 2019-05-20 08:56 | XRay Report ---
LEFT HIP 2 VIEWS CLINICAL HISTORY: Left hip pain. FINDINGS: AP and frog-leg views of the left hip are compared to study dated 12/19/2015. The skeletal s tructures are osteopenic. There is no radiographic evidence of fracture involving the left hip or the visualized left hemipelvis. Moderate arthritic change and joint space narrowing is seen in the left hip. Sclerotic change is partially imaged in the pubic symphysis and left sacroiliac joint. A soft ti ssue calcification is noted in the upper thigh. The overlying soft tissues are otherwise normal in ap pearance. IMPRESSION: Osteopenia with no acute bony abnormality identified. Electronically signed by: Paddy Smith M.D. 05/20/2019 8:55 AM
--- NOTE | 2019-05-20 08:58 | XRay Report ---
XR knee LT 3V HISTORY: 88 years-old Female L knee pain, inability to bear weight acute left knee pain with instabi lity COMPARISON: Left knee radiographs 12/09/2009 TECHNIQUE: 3 views of the left knee FINDINGS: Left knee total joint arthroplasty and patella resurfacing. Demineralized appearance of the bones. No evidence of acute hardware complication. No acute fracture or dislocation. Peripheral arterial calci fications are noted. Suspected small joint effusion. IMPRESSION: 1. No acute fracture or dislocation. 2. Left knee total joint arthroplasty and patella resurfacing without evidence of hardware complicati on. The above report was generated using voice recognition software. It may contain grammatical, syntax o r spelling errors. Electronically signed by: Thomas Pruitt M.D. 05/20/2019 8:56 AM
[2019-05-20] MEDS ORDERED: LACTATED RINGER'S 500 ML IV ONE (09:13)
--- NOTE | 2019-05-20 11:08 | CT Scan Report ---
ABDOMEN AND PELVIS CT WITHOUT CONTRAST CT DOSE: HISTORY: low back/hip pain TECHNIQUE: Multiaxial CT images of the abdomen and pelvis were performed without contrast. A dose lo wering technique was utilized adhering to the principles of ALARA. COMPARISON STUDY: Abdomen and pelvis CT 11/17/2016. FINDINGS: Mild interstitial thickening and bibasilar densities within the lung bases which favor subs egmental atelectasis. No pneumoperitoneum. No pneumatosis. No suspicious lytic or blastic osseous les ions. Moderate to large hiatus hernia, unchanged. Broad-based posterior disc bulge at L4 L5 resulting in moderate central canal narrowing. There is also a left-sided disc herniation at L4-5 with superio r subligamentous migration measuring 7 mm. This appears to compress the left side of the thecal sac a t the L4 level and likely compresses the traversing left L4 nerve root given the location. No hepatic or splenic masses on this unenhanced study. Cholecystectomy. The unenhanced pancreas is unremarkable . Mild bilateral perinephric edema is likely chronic. No renal or ureteral stones. No hydronephrosis. Stable 8 mm hyperdense lesion within the lower pole the left kidney. This favors a hyperdense cyst. Normal adrenal glands. No retroperitoneal lymphadenopathy. Normal bladder. A pessary device is seen w ithin the upper vagina. Suboptimal evaluation for bowel pathology due to the lack of intravenous and oral contrast. However, there is no definite bowel wall thickening or obstruction. Colonic diverticul osis. Hysterectomy. The appendix is surgically absent. IMPRESSION: 1. No renal or ureteral stones. No hydronephrosis. 2. No definite bowel wall thickening or obstruction. 3. There is a new L4-5 left-sided disc herniation with superior subligamentous migration measuring 7 mm. This compresses the left side of the thecal sac at the L4 level and likely compresses the transit ing left L4 nerve root given the location.. 4. Additional findings as described above. Electronically signed by: Todd Mckeon M.D. 05/20/2019 11:05 AM
[2019-05-20] MEDS ORDERED: MoRPHine SULFATE 2 MG/ML CARP IV STA (11:47)
--- NOTE | 2019-05-20 13:05 | History & Physical Report ---
Date of Service May 20, 2019 Assessment & Plan (1) Lumbar disc herniation with radiculopathy: (2) Pain of left lower extremity: This is a pleasant 88-year-old female who has a significant PMH of T2DM, CAD, HTN, ulcerative colitis, PMR, hypothyroidism, hiatal hernia, GERD who presents to [facility] ED secondary to severe left lower extremity pain x2 days. She has a known history of L4-5 disc herniation confirmed on MRI. She follows with pain management Dr. Dougherty. Had Epidural injection 04/07 and 04/28 with relief until severe pain returned 2 days ago. In ED patient remained hemodynamically stable. CBC relatively unremarkable Bun/CR at baseline 20/11. CRP WNL, ESR 32 CT abd/pelvis reveals: There is a new L4-5 left-sided disc herniation with superior subligamentous migration measuring 7 mm. This compresses the left side of the thecal sac at the L4 level and likely compresses the transiting left L4 nerve root given the location L Knee Xray: Left knee total joint arthroplasty and patella resurfacing without evidence of hardware complication L Hip Xray: Osteopenia with no acute bony abnormality identified Pain improved with administration of IV analgesia Pain likely secondary Lumbar disc herniation with radiculopathy, ? trochanteric bursitis component admit to med/surg consult Dr. Grimes ortho spine Activity: bedrest with BRP per Dr. Grimes Make NPO after midnight in event surgical intervention required SCDS/TEDS for vte ppx until seen and evaluated by surgery - if no surgical intervention would start on SQ heparin Hold ASA for now until seen by ortho incentive spirometry cbc, bmp, pt/inr, ptt in am will need cardiac clearance if requires surgical intervention - followed by Dr. Haq (3) Coronary artery disease: ecg unchanged from prior, anterolateral t wave inversions less prevalent no cp or sob continue medical management with statin, PARKER, imdur ASA on hold until seen by ortho (4) DM type 2 (diabetes mellitus, type 2): Last A1c 7.6 on 11/2018 Obtain A1c in a.m. Hold Januvia Placed on NovoLog sliding scale per protocol and monitor blood sugar (5) Hypertension: Blood pressure controlled on amlodipine, lisinopril (6) CKD (chronic kidney disease), stage III: baseline Cr 1.6 bun/cr 30/1.68 today follow bmp avoid nephrotoxic agents (7) Polymyalgia rheumatica: continue chronic low dose prednisone (8) Hypothyroidism: continue armour thyroid (9) Hiatal hernia: continue PPI (10) Ulcerative colitis: continue PPI (11) DVT prophylaxis: SCDS/TEDS for now if not surgical intervention would initiate SQ heparin Disposition: to be determined, may need acute rehab placement case management consulted Follow up: PCP Dr. Kingsley upon discharge Patient was seen and examined in collaboration with Dr. Fernandez, please see addendum History of Present Illness Chief Complaint: LLE pain x 2 days. Primary Care Provider: Claudy Kingsley MD This is a pleasant 88-year-old female who has a significant PMH of T2DM, CAD, HTN, ulcerative colitis, PMR, hypothyroidism, hiatal hernia, GERD who presents to [facility] ED secondary to severe left lower extremity pain x2 days. She has a known history of L4-5 disc herniation confirmed on MRI. She follows with pain management Dr. Dougherty. She was last seen on 04/28 due to intractable pain in which she received an epidural injection. Previous epidural injection also given on 04/07. Prior to 04/07 she was relatively pain-free for approximately 3 years. She states after receiving injection 04/28 she did have noticeable improvement until approximately 2 days ago. She developed acute onset left lower extremity pain located superiorly/lateral L hip with radiation to L knee with associated numbness/tingling. She also admits to numbness/tingling extending to L foot and associated weakness. Over past two days pain so severe, unable to walk. Made worse with movement and improved with rest. Did not try any medications at home. Pain feels similar to previous pain requiring injection but much more severe. Denies bowel or bladder incontinence. Son at bedside notes pain brought her to tears. Due to [address] Dougherty recommended ED evaluation. She denies any f/c/s, chest pain, sob, palpitations, n/v/d, change in bowel or urinary habits. She lives at home with and when pain absent is relatively independent. Allergies Allergy/AdvReac Type Severity Reaction Status Date / Time technetium-99m Allergy Severe RASH Unverified 12/12/18 18:31 calamine Allergy Mild RASH WORSE Unverified 12/12/18 18:31 tetanus toxoid, adsorbed Allergy Mild Verified 12/12/18 18:31 cephalexin Allergy Unknown RASH Verified 12/12/18 18:31 meclizine AdvReac Unknown Verified 05/20/19 12:08 Home Medications Home Medications Medication Instructions Recorded Confirmed Type Fish Oil 1 cap PO DAILY 12/12/18 05/20/19 History aspirin [Aspirin Low Dose] 81 mg PO DAILY 12/12/18 05/20/19 History atorvastatin 20 mg PO DAILY 12/12/18 05/20/19 History docusate sodium [Doc-Q-Lace] 100 mg PO BID 12/12/18 05/20/19 History flaxseed oil 1,000 mg PO DAILY 12/12/18 05/20/19 History isosorbide mononitrate 30 mg PO DAILY 12/12/18 05/20/19 History lansoprazole 30 mg PO BID 12/12/18 05/20/19 History mesalamine [Asacol HD] 800 mg PO DAILY 12/12/18 05/20/19 History prednisone 5 mg PO DAILY 12/12/18 05/20/19 History sennosides [senna] 8.6 mg PO DAILY PRN 12/12/18 05/20/19 History sitagliptin 100 mg PO DAILY 12/12/18 05/20/19 History amlodipine 5 mg PO DAILY 05/20/19 05/20/19 History cholecalciferol (vitamin D3) 2,000 unit PO DAILY 05/20/19 05/20/19 History [Vitamin D3] hydrocortisone acetate 25 mg VT DAILY PRN 05/20/19 05/20/19 History lisinopril 20 mg PO DAILY 05/20/19 05/20/19 History thyroid (pork) [Eagle Thyroid] 30 mg PO SUTUTHSA 05/20/19 05/20/19 History thyroid (pork) [Eagle Thyroid] 60 mg PO MOWEFR 05/20/19 05/20/19 History Past Med/Surg History Medical History CKD (chronic kidney disease), stage III (Chronic) Ulcerative colitis (Chronic) Hypertension (Chronic) Coronary artery disease (Chronic) NSTEMI 1989, Left heart cath, treated medically Hiatal hernia (Chronic) GERD (gastroesophageal reflux disease) (Chronic) Polymyalgia rheumatica (Chronic) Left bundle branch block (Chronic) Hypothyroidism (Chronic) History of cervical cancer (Chronic) NSTEMI (non-ST elevated myocardial infarction) (Inactive) Silent myocardial infarction (Inactive ~1989) Surgical History History of tonsillectomy (Chronic) History of partial hysterectomy (Chronic) H/O hemorrhoidectomy (Chronic) Status post appendectomy (Chronic) Status post cholecystectomy (Chronic) Status post total knee replacement (Chronic) Family History Mother Parkinson disease Father Coronary heart disease Myocardial infarction Social History Preferred Language: Mauritian Communication Ability: Effective 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 Physical Exam Physical Exam: Gen: WD/WN, elderly, F, In pain with movement of LLE, sitting up in bed, pleasant, conversing easily Head: Normocephalic, Atraumatic Eyes: Sclera normal, no conjunctival injection, PERRLA, EOMI ENT: Gross hearing intact, normal pharynx, mucous membranes moist Neck: supple, no adenopathy, No JVD, no bruit, Resp: Clear to auscultation b/l, no wheeze, rales, rhonchi. Normal insp/exp effort, no accessory muscle use CV: Regular rate, regular rhythm, 1/6 Indy noted RUSB, no rub, gallop, or ectopy Abd: +BS x 4, soft, nontender, nondistended Musculoskeletal: + Pain to palpation left lateral hip region extending laterally to left knee. There is no erythema or edema. She has pain with passive and active flexion/extension of left leg. No difficulty with dorsi/plantar flexion to L ankle/foot. No pain to vertebral processes, back or buttock. 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 Extremities: No edema bilaterally Skin: warm, moist, no rash, negative turgor, cap refill < 2sec Neuro: Alert and oriented x 3, speech normal, good mood/affect, cran nerve 2-12 intact grossly : deferred Results & Data Vital Signs (Past 12 Hours) Vital Signs Temp Pulse Pulse Resp BP BP Pulse Ox 05/20/19 12:00 60 18 129/75 98 05/20/19 10:22 57 L 16 121/61 95 05/20/19 09:33 63 18 117/58 L 95 05/20/19 08:50 71 16 144/76 H 97 05/20/19 07:01 36.5 C 66 18 173/90 H 97 Laboratory Results Short CBC 05/20/19 Range/Units 07:17 WBC 10.49 (4.8-10.8) K/uL Hgb 13.0 (12.0-16.0) g/dL Hct 40.4 (37-47) % Plt Count 193 (130-400) K/uL BMP 05/20/19 07:17 Sodium 144 Potassium 4.5 Chloride 113 H Carbon Dioxide 23 BUN 30 H Creatinine 1.68 H Glucose 97 Calcium 9.3 Liver Function 05/20/19 Range/Units 07:17 Total Bilirubin 0.3 (0.2-1) mg/dl AST 8 L (15-37) U/L ALT 18 (12-78) U/L Alkaline Phosphatase 71 (45-117) U/L Albumin 3.8 (3.4-5.0) gm/dl Diagnostic Findings CT abd/pelvis: IMPRESSION: 1. No renal or ureteral stones. No hydronephrosis. 2. No definite bowel wall thickening or obstruction. 3. There is a new L4-5 left-sided disc herniation with superior subligamentous migration measuring 7 mm. This compresses the left side of the thecal sac at the L4 level and likely compresses the transiting left L4 nerve root given the location.. 4. Additional findings as described above. Knee Xray: IMPRESSION: 1. No acute fracture or dislocation. 2. Left knee total joint arthroplasty and patella resurfacing without evidence of hardware complication. Hip Xray: IMPRESSION: Osteopenia with no acute bony abnormality identified. Medications Administered Discontinued Medications Acetaminophen (Ofirmev) 65 mls @ 200 mls/hr IV NOW ONE Stop: 05/20/19 08:16 Last Infusion: 05/20/19 08:35 Dose: 0 mls/hr Documented by: [id number] Admin: 05/20/19 08:11 Dose: 200 mls/hr Documented by: [id number] Lactated Ringer's (Lr) 500 mls @ 999 mls/hr IV .Q31M ONE Stop: 05/20/19 09:43 Last Infusion: 05/20/19 10:14 Dose: 0 mls/hr Documented by: [id number] Admin: 05/20/19 09:29 Dose: 999 mls/hr Documented by: [id number] Morphine Sulfate (Morphine Sulfate) 2 mg IV NOW STA Stop: 05/20/19 11:48 Last Admin: 05/20/19 12:01 Dose: 2 mg Documented by: [id number] ECG Rate (beats per minute): 70 Rhythm: normal sinus Findings: + LBBB and + prolonged QT (QTC 494ms) Additional Comments: Unchanged from prior EKG on 11/2018 Anterior lateral T wave less prevalent Code Status & VTE Plan Code Status Full Code VTE Prophylaxis Plan VTE Prophylaxis will be ordered: Yes Reason for no VTE drug order: Contraindicated (await to be seen by spine surgery to determine if surgery warranted prior to initating chemoprophylaxis) Supervising Physician Co-Signing Physician Notes I saw this patient with the physician assistant basketball coach, I participated in the history, physical, review of systems, and physical exam. I reviewed the medications with the patient and the physician assistant basketball coach and helped reconcile the medications. I helped take a detailed family and social history as well. I formulated the assessment and plan personally with the physician assistant basketball coach and went over it with the patient. ROS-No Headache, No Visual Changes, No Nausea, No Vomiting, No Fever, No Chills, No Neck Pain or Stiffness, No Chest Pain, No Palpitations, No SOB, No CAO, No Cough, No Sputum, No Wheezing, No Abdominal Pain, No Diarrhea, No Hematemesis, No Hemoptysis, No Unexpected Weight Loss, No Flank pain, No Melena, No Hematochezia, No Frequency, No Urgency, No Burning, No Hematuria, No Rashes, No Diaphoresis. Appetite is Normal, c/o L Hip and groin pain Physical Exam Gen-AAO x 3, NAD, Afebrile Head-NCAT, EOMI, PERRLA, Anicteric Sclera, No Posterior Pharyngeal Erythema Neck-Supple, No JVD, No Thyromegaly, No Masses, No LAD, No Bruits Lungs-Clear to Auscultation Bilaterally, No Rales, No Rhonchi, No Wheezing, No Crepitus Chest-No S4, +S1, +S2, No S3, No Murmurs, No Rubs, No Gallops, No Ectopy Abdomen-Soft, Bowel Sounds Present, Non Tender, Non Distended, No Hepatomegaly, No Splenomegaly, No Palpable Masses, No Rebound, No Rigidity, No Guarding Musculoskeletal-Full Range of Motion Bilaterally, No CVAT Extremities-No Cyanosis, No Clubbing, No Edema Nuero-Cranial Nerves II-XII grossly intact, Motor WNL, DTRs WNL, Strength WNL, Non Focal Psych-Normal Mood
[2019-05-20] MEDS ORDERED: GLUCAGON FOR INJ 1 MG VIAL SQ PRN (13:57)
[2019-05-20] MEDS ORDERED: MAGNESIUM HYDROXIDE SUSP 30 ML UDC PO PRN (13:57)
[2019-05-20] MEDS ORDERED: DEXTROSE 50% 50 ML SYRINGE IV PRN (13:57)
[2019-05-20] MEDS ORDERED: ONDANSETRON INJ 2 MG/ML 2 ML VIAL IV PRN (13:57)
[2019-05-20] MEDS ORDERED: GLUCOSE 40% GEL 15 GM TUBE PO PRN (13:57)
[2019-05-20] MEDS ORDERED: GLUCOSE 10 TABS/TUBE PO PRN (13:57)
[2019-05-20] MEDS ORDERED: CARBOHYDRATES FOR HYPOGLYCEMIA PO PRN (13:57)
[2019-05-20] MEDS ORDERED: MoRPHine SULFATE 2 MG/ML CARP IV PRN (13:57)
[2019-05-20] MEDS ORDERED: ACETAMINOPHEN 325 MG TAB PO PRN (13:57)
[2019-05-20] MEDS ORDERED: POLYETHYLENE (MIRALAX) 17 GM PACK PO PRN (13:57)
[2019-05-20] MEDS ORDERED: ALUMINUM/MAGNESIUM SUSP 30 ML UDC PO PRN (13:57)
[2019-05-20] MEDS: AMLODIPINE BESYLATE 5 MG TAB PO SCH (14:50)
[2019-05-20] MEDS: LISINOPRIL 20 MG TAB PO SCH (14:50)
[2019-05-20] MEDS: ACETAMINOPHEN 325 MG TAB PO SCH ×3 (14:50→21:10)
--- NOTE | 2019-05-20 15:22 | Emergency Department Note ---
Entered by Kymberly Lugo acting as a scribe for Hussein Ramos MD History of Present Illness General Chief complaint: Hip Pain Stated complaint: HIP PAIN Time Seen by Provider: 05/20/19 07:03 Source: patient History of Present Illness Onset (ago): day(s) 1 Location: hip (left) Radiation: extremity (left lower extremity) Pain Consistency: + constant and + other (worsening) Maximum Pain Intensity: 6 Relieved By: + medication (Fentanyl) Exacerbated By: + movement and + other (bearing weight) Associated symptoms: + denies other symptoms (vomiting, falls, trauma) and + other (nausea) The patient is a 88 year old female that is presenting to the Emergency Room with complaints of constant and worsening left sided hip pain that started yesterday upon waking. The patient reports that she is unable to bear weight in the leg secondary to the pain. She notes that any movement worsens the pain. She rates the pain as 10/10 at its worst. She states that the pain radiates down the outside of her leg down to her heel. She notes that her left knee is sore. She notes some left leg weakness and some nausea secondary to the pain. She denies any vomiting, falls, or trauma to the area. She reports that she has chr onic left lower extremity pain over the past 6 months and numbness in her left foot over the past year. She reports that she decided to come to the ED because the pain was not improving. She states that she received Fentanyl en route in the ambulance with only moderate relief in her pain. She notes that she has a history of left sided sciatica but states that her current pain is different from her sciatica. She notes that she receives injections into her left hip for the sciatica with her last injection 22 days ago on 04/28/19. The patient reports that she has a history of severe osteoporosis with a 30% bone loss noted on her last DEXA. The patient states that she is followed for these issues. She notes that she has a history of CKD, diabetes, hypertension, and GERD. She notes that she takes 5mg-Prednisone chronically. Home Medications Home Medications Medication Instructions Recorded Confirmed Type Fish Oil 1 cap PO DAILY 12/12/18 05/20/19 History aspirin [Aspirin Low Dose] 81 mg PO DAILY 12/12/18 05/20/19 History atorvastatin 20 mg PO DAILY 12/12/18 05/20/19 History docusate sodium [Doc-Q-Lace] 100 mg PO BID 12/12/18 05/20/19 History flaxseed oil 1,000 mg PO DAILY 12/12/18 05/20/19 History isosorbide mononitrate 30 mg PO DAILY 12/12/18 05/20/19 History lansoprazole 30 mg PO BID 12/12/18 05/20/19 History mesalamine [Asacol HD] 800 mg PO DAILY 12/12/18 05/20/19 History prednisone 5 mg PO DAILY 12/12/18 05/20/19 History sennosides [senna] 8.6 mg PO DAILY PRN 12/12/18 05/20/19 History sitagliptin 100 mg PO DAILY 12/12/18 05/20/19 History amlodipine 5 mg PO DAILY 05/20/19 05/20/19 History cholecalciferol (vitamin D3) 2,000 unit PO DAILY 05/20/19 05/20/19 History [Vitamin D3] hydrocortisone acetate 25 mg IN DAILY PRN 05/20/19 05/20/19 History lisinopril 20 mg PO DAILY 05/20/19 05/20/19 History thyroid (pork) [[place] Thyroid] 30 mg PO SUTUTHSA 05/20/19 05/20/19 History thyroid (pork) [[place] Thyroid] 60 mg PO MOWEFR 05/20/19 05/20/19 History Allergies Allergy/AdvReac Type Severity Reaction Status Date / Time technetium-99m Allergy Severe RASH Unverified 12/12/18 18:31 calamine Allergy Mild RASH WORSE Unverified 12/12/18 18:31 tetanus toxoid, adsorbed Allergy Mild Verified 12/12/18 18:31 cephalexin Allergy Unknown RASH Verified 12/12/18 18:31 meclizine AdvReac Unknown Verified 05/20/19 12:08 Past Med/Surg History Medical History CKD (chronic kidney disease), stage III (Chronic) Ulcerative colitis (Chronic) Hypertension (Chronic) Coronary artery disease (Chronic) NSTEMI 1989, Left heart cath, treated medically Hiatal hernia (Chronic) GERD (gastroesophageal reflux disease) (Chronic) Polymyalgia rheumatica (Chronic) Left bundle branch block (Chronic) Hypothyroidism (Chronic) History of cervical cancer (Chronic) NSTEMI (non-ST elevated myocardial infarction) (Inactive) Silent myocardial infarction (Inactive ~1989) Surgical History History of tonsillectomy (Chronic) History of partial hysterectomy (Chronic) H/O hemorrhoidectomy (Chronic) Status post appendectomy (Chronic) Status post cholecystectomy (Chronic) Status post total knee replacement (Chronic) Family History Mother Parkinson disease Father Coronary heart disease Myocardial infarction Social History Preferred Language: Iraqi Communication Ability: Effective [employer] C[employer] Required: No Beliefs That Will Affect Care: None Current Living Situation: Spouse Other Information That Helps Us Care for You: No Feels Safe at Home: Yes Safety Concerns: Feels Safe At This Time Smoking Status: Former smoker Do You Dip or Chew Tobacco: No Second Hand Exposure: No Tobacco Cessation Education Requested by Patient: No Hx Alcohol Use: No Hx Substance Use: No Review of Systems See HPI for pertinent positives & negatives. and A total of 10 systems reviewed and were otherwise negative Physical Exam Vital Signs Vital Signs - 24 hr 05/20/19 07:01 05/20/19 08:50 05/20/19 09:33 Temperature 36.5 C Temperature Source Oral Sepsis Recent Fever Within 48 Hours No Sepsis New/Unexplained Change in Mental Status No Sepsis Action Taken by Nursing No Action Required Pulse Rate 66 Pulse Rate [Left Finger] 71 63 Respiratory Rate 18 16 18 Respiratory Effort / Characteristics Non-Labored Spontaneous Blood Pressure 173/90 H Blood Pressure [Right Arm] 144/76 H 117/58 L Blood Pressure Mean 117 Blood Pressure Mean [Right Arm] 98 77 Blood Pressure Position [Right Arm] Lying Pulse Oximetry 97 97 95 Oxygen Delivery Method Room Air Room Air Room Air 05/20/19 10:22 05/20/19 12:00 Temperature Temperature Source Sepsis Recent Fever Within 48 Hours Sepsis New/Unexplained Change in Mental Status Sepsis Action Taken by Nursing Pulse Rate Pulse Rate [Left Finger] 57 L 60 Respiratory Rate 16 18 Respiratory Effort / Characteristics Blood Pressure Blood Pressure [Right Arm] 121/61 129/75 Blood Pressure Mean Blood Pressure Mean [Right Arm] 81 93 Blood Pressure Position [Right Arm] Pulse Oximetry 95 98 Oxygen Delivery Method Room Air Room Air GENERAL: Awake, alert, uncomfortable-appearing, in no distress HENT: Normocephalic, atraumatic. Oropharynx with dry mucous membranes and otherwise unremarkable. EYES: Normal conjunctiva. Sclera non-icteric. NECK: Supple. No nuchal rigidity. FROM. No JVD. RESPIRATORY: Clear to auscultation. CARDIAC: Regular rate, normal rhythm. Extremities warm and well perfused. Pulses equal. ABDOMEN: Soft, non-distended. No tenderness to palpation. No rebound or guarding. No masses. RECTAL: Deferred. MUSCULOSKELETAL: Chest examination reveals no tenderness. The back is symmetrical on inspection without obvious abnormality. Mild left lower lumbar ttp extending distally. There is no CVA tenderness to palpation. No joint edema. LOWER EXTREMITIES: Calves are equal size bilaterally and non-tender. No edema. No discoloration. Mild tenderness to the lateral aspect of the left hip and left iliac crest. No bony crepitus. Distal PMS intact. L5 intact bilaterally. +left SLR. NEURO: Normal sensorium. No sensory or motor deficits noted. SKIN: No rash or jaundice noted. Course 0720: The patient was seen and evaluated by the Resident Physician at this time. History and physical were discussed with me. 0830:The patient was evaluated in room A03. A complete history and physical examination was performed. 0955: I reevaluated the patient who is resting comfortably at this time. Additional scans were ordered 1137: The patient states that her pain is worse and she is requesting more pain medications. 1155: The Resident discussed the patients case with Isaiah Garcia, who will evaluate the patient for further management and care. 1251: I discussed the patients case with Dr. Grimes, Orthopedics, who will evaluate the patient in the hospital. 1300: Upon reevaluation, the patient is resting comfortably. I discussed laboratory and radiographic results with the patient. She verbalized agreement of the treatment plan. The patient will be evaluated for further management and care. Consultations Consultation #1: The Resident discussed the patients case with Isaiah Garcia, who will evaluate the patient for further management and care. Time: 11:55 Consultation #2: I discussed the patients case with Dr. Grimes, Orthopedics, who will evaluate the patient in the hospital. He recommended bed rest and bathroom privileges with assistance. Time: 12:51 Administered Medications Acetaminophen (Tylenol) 650 mg PO QID [facility] Stop: 06/19/19 13:56 Last Admin: 05/20/19 14:50 Dose: 650 mg Documented by: [id number] Amlodipine Besylate (Norvasc) 5 mg PO DAILY [facility] Stop: 06/19/19 13:56 Last Admin: 05/20/19 14:50 Dose: 5 mg Documented by: [id number] Lisinopril (Zestril) 20 mg PO DAILY [facility] Stop: 06/19/19 13:56 Last Admin: 05/20/19 14:50 Dose: 20 mg Documented by: [id number] Miscellaneous (Order Awaiting Action) 1 ea N/A QS [facility] Stop: 06/19/19 15:59 Last Admin: 05/20/19 16:31 Dose: Not Given Documented by: [id number] Discontinued Medications Acetaminophen (Ofirmev) 65 mls @ 200 mls/hr IV NOW ONE Stop: 05/20/19 08:16 Last Infusion: 05/20/19 08:35 Dose: 0 mls/hr Documented by: [id number] Admin: 05/20/19 08:11 Dose: 200 mls/hr Documented by: [id number] Lactated Ringer's (Lr) 500 mls @ 999 mls/hr IV .Q31M ONE Stop: 05/20/19 09:43 Last Infusion: 05/20/19 10:14 Dose: 0 mls/hr Documented by: [id number] Admin: 05/20/19 09:29 Dose: 999 mls/hr Documented by: [id number] Morphine Sulfate (Morphine Sulfate) 2 mg IV NOW STA Stop: 05/20/19 11:48 Last Admin: 05/20/19 12:01 Dose: 2 mg Documented by: [id number] Medical Decision Making Differential Diagnosis Differential diagnosis: Etiologies such as fracture, dislocation, neurovascular compromise, compartment syndrome, soft tissue injury, as well as others were entertained. Medical Records Attestation: I reviewed the patient's medical records. Home Medications Current Medication List: was personally reviewed by me Laboratory Data Attestation: I reviewed the patient's lab results. Result diagrams: 05/20/19 07:17 05/20/19 07:17 Lab Results 05/20/19 05/20/19 05/20/19 Range/Units 07:17 07:17 07:17 WBC 10.49 (4.8-10.8) K/uL RBC 4.62 (4.2-5.4) M/uL Hgb 13.0 (12.0-16.0) g/dL Hct 40.4 (37-47) % MCV 87.4 (80-100) fL MCH 28.1 (25-34) pg MCHC 32.2 (32-36) g/dL RDW Std Deviation 46.0 (36.4-46.3) fL RDW Coeff of Geovanna 14.4 (11.5-14.5) % Plt Count 193 (130-400) K/uL MPV 10.5 H (7.4-10.4) fL Immature Gran % (Auto) 0.5 % Neut % (Auto) 49.5 % Lymph % (Auto) 39.3 % Cla[place]orne % (Auto) 9.3 % Eos % (Auto) 1.1 % Baso % (Auto) 0.3 % Immature Gran # (Auto) 0.05 H (0.00-0.02) K/uL Neut # (Auto) 5.19 (1.4-6.5) K/uL Lymph # (Auto) 4.12 H (1.2-3.4) K/uL [place] # (Auto) 0.98 H (0.11-0.59) K/uL Eos # (Auto) 0.12 (0-0.5) K/uL Baso # (Auto) 0.03 (0-0.2) K/uL ESR 32 H (0-21) mm/hr Sodium 144 (136-145) mmol/L Potassium 4.5 (3.5-5.1) mmol/L Chloride 113 H (98-107) mmol/L Carbon Dioxide 23 (21-32) mmol/L Anion Gap 8.0 (3-11) BUN 30 H (7-18) mg/dl Creatinine 1.68 H (0.6-1.2) mg/dl Est Cr Clr Drug Dosing 19.9 ml/min Est GFR ( Amer) 31.1 Est GFR (Non-Af Amer) 26.8 BUN/Creatinine Ratio 17.6 (10-20) Glucose 97 (70-99) mg/dl Calcium 9.3 (8.5-10.1) mg/dl Total Bilirubin 0.3 (0.2-1) mg/dl AST 8 L (15-37) U/L ALT 18 (12-78) U/L Alkaline Phosphatase 71 (45-117) U/L C-Reactive Protein (0-0.29) mg/dl Total Protein 7.2 (6.4-8.2) gm/dl Albumin 3.8 (3.4-5.0) gm/dl Globulin 3.4 (2.5-4.0) gm/dl Albumin/Globulin Ratio 1.1 (0.9-2) 05/20/19 Range/Units 07:17 WBC (4.8-10.8) K/uL RBC (4.2-5.4) M/uL Hgb (12.0-16.0) g/dL Hct (37-47) % MCV (80-100) fL MCH (25-34) pg MCHC (32-36) g/dL RDW Std Deviation (36.4-46.3) fL RDW Coeff of Geovanna (11.5-14.5) % Plt Count (130-400) K/uL MPV (7.4-10.4) fL Immature Gran % (Auto) % Neut % (Auto) % Lymph % (Auto) % [place] % (Auto) % Eos % (Auto) % Baso % (Auto) % Immature Gran # (Auto) (0.00-0.02) K/uL Neut # (Auto) (1.4-6.5) K/uL Lymph # (Auto) (1.2-3.4) K/uL [place] # (Auto) (0.11-0.59) K/uL Eos # (Auto) (0-0.5) K/uL Baso # (Auto) (0-0.2) K/uL ESR (0-21) mm/hr Sodium (136-145) mmol/L Potassium (3.5-5.1) mmol/L Chloride (98-107) mmol/L Carbon Dioxide (21-32) mmol/L Anion Gap (3-11) BUN (7-18) mg/dl Creatinine (0.6-1.2) mg/dl Est Cr Clr Drug Dosing ml/min Est GFR ( Amer) Est GFR (Non-Af Amer) BUN/Creatinine Ratio (10-20) Glucose (70-99) mg/dl Calcium (8.5-10.1) mg/dl Total Bilirubin (0.2-1) mg/dl AST (15-37) U/L ALT (12-78) U/L Alkaline Phosphatase (45-117) U/L C-Reactive Protein < 0.29 (0-0.29) mg/dl Total Protein (6.4-8.2) gm/dl Albumin (3.4-5.0) gm/dl Globulin (2.5-4.0) gm/dl Albumin/Globulin Ratio (0.9-2) Imaging Data Radiologist's Impression: Radiology results as stated below per my review and the radiologist's interpretation: LEFT HIP 2 VIEWS CLINICAL HISTORY: Left hip pain. FINDINGS: AP and frog-leg views of the left hip are compared to study dated 12/19/2015. The skeletal structures are osteopenic. There is no radiographic evidence of fracture involving the left hip or the visualized left hemipelvis. Moderate arthritic change and joint space narrowing is seen in the left hip. Sclerotic change is partially imaged in the pubic symphysis and left sacroiliac joint. A soft tissue calcification is noted in the upper thigh. The overlying soft tissues are otherwise normal in appearance. IMPRESSION: Osteopenia with no acute bony abnormality identified. Electronically signed by: Paddy Smith M.D. 05/20/2019 8:55 AM XR knee LT 3V HISTORY: 88 years-old Female L knee pain, inability to bear weight acute left knee pain with instability COMPARISON: Left knee radiographs 12/09/2009 TECHNIQUE: 3 views of the left knee FINDINGS: Left knee total joint arthroplasty and patella resurfacing. Demineralized appearance of the bones. No evidence of acute hardware complication. No acute fracture or dislocation. Peripheral arterial calcifications are noted. Suspected small joint effusion. IMPRESSION: 1. No acute fracture or dislocation. 2. Left knee total joint arthroplasty and patella resurfacing without evidence of hardware complication. The above report was generated using voice recognition software. It may contain grammatical, syntax or spelling errors. Electronically signed by: Thomas Pruitt M.D. 05/20/2019 8:56 AM ABDOMEN AND PELVIS CT WITHOUT CONTRAST CT DOSE: HISTORY: low back/hip pain TECHNIQUE: Multiaxial CT images of the abdomen and pelvis were performed without contrast. A dose lowering technique was utilized adhering to the principles of ALARA. COMPARISON STUDY: Abdomen and pelvis CT 11/17/2016. FINDINGS: Mild interstitial thickening and bibasilar densities within the lung bases which favor subsegmental atelectasis. No pneumoperitoneum. No pneumatosis. No suspicious lytic or blastic osseous lesions. Moderate to large hiatus hernia, unchanged. Broad-based posterior disc bulge at L4 L5 resulting in moderate reginaldo tral canal narrowing. There is also a left-sided disc herniation at L4-5 with superior subligamentous migration measuring 7 mm. This appears to compress the left side of the thecal sac at the L4 level and likely compresses the traversing left L4 nerve root given the location. No hepatic or splenic masses on this unenhanced study. Cholecystectomy. The unenhanced pancreas is unremarkable. Mild bilateral perinephric edema is likely chronic. No renal or ureteral stones. No hydronephrosis. Stable 8 mm hyperdense lesion within the lower pole the left kidney. This favors a hyperdense cyst. Normal adrenal glands. No retroperitoneal lymphadenopathy. Normal bladder. A pessary device is seen within the upper vagina. Suboptimal evaluation for bowel pathology due to the lack of intravenous and oral contrast. However, there is no definite bowel wall thickening or obstruction. Colonic diverticulosis. Hysterectomy. The appendix is surgically absent. IMPRESSION: 1. No renal or ureteral stones. No hydronephrosis. 2. No definite bowel wall thickening or obstruction. 3. There is a new L4-5 left-sided disc herniation with superior subligamentous migration measuring 7 mm. This compresses the left side of the thecal sac at the L4 level and likely compresses the transiting left L4 nerve root given the location.. 4. Additional findings as described above. Electronically signed by: Todd Mckeon M.D. 05/20/2019 11:05 AM ECG Data Attestation: I personally reviewed and interpreted this ECG as follows: Indication: weakness Rate (beats per minute): 70 Rhythm: normal sinus (with sinus arrhythmia) Findings: + LBBB and + left axis deviation; no ST depression, no ST elevation and no acute ischemic change Comparison ECG Date: from (12/13/2018) Change: no significant change Blood Pressure Blood Pressure Findings: Elevated blood pressure Blood Pressure Disposition: elevated BP felt to be situational MDM Narrative The patient is a pleasant 83-year-old woman with a past medical history of osteoarthritis and polymyalgia rheumatica, CKD, CAD, HTN, GERD who presents emergency department with worsening lower back pain rating down her left leg per hpi. Patient denies urinary retention or bowel incontinence. On arrival patient is uncomfortable but no acute distress, afebrile stable vital signs. On exam the patient has mild left lower lumbar ttp extending distally as well as mild ttp to her left lateral hip with pain that is provoked by active and passive range of motion. Distal PMS intact. Plain films of the femur and knee were negative. EKG with baseline LBBB without Sgarbossa criteria. WBC, H/H, platelets wnl. Chemistry without acidosis. Cr. 1.6 within baseline range. LFTs and electrolytes unremarkable. CT Abd pelvis performed and demonstrates severe new L4-5 left-sided disc herniation with superior subligamentous migration measuring 7 mm with associated compression of the left side of the thecal sac at the L4 level and as well as the transiting left L4 nerve root. I discussed the case with Dr. Grimes, orthopedic-spine surgery on-call, and agrees with plan with admission for pain control and further evaluation including MRI. He will be available for inpatient team consultation. Recommends bed rest with bathroom priviledges with assistance as tolerated. Resident Dr. Villarreal, discussed case with Isaiah Mark PA-C, who evaluate the patient for admission. This patient was managed with the assistance of resident, Dr. Villarreal, I discussed the case with the resident, examined the patient, and confirm the findings and plan as documented in this note. Impression & Plan Lumbar disc herniation with radiculopathy Discharge Plan Visit Data *Final* Discharge Date/Time: 05/20/19 13:40 Chief Complaint: Hip Pain Stated Complaint: HIP PAIN ED Provider: Hussein Ramos ED Midlevel Provider: Mo Villarreal Discharge Problem: Lumbar disc herniation with radiculopathy Patient Disposition: Admitted As Inpatient Discharge Instructions Interventions: ED Discharge Assessment Last Done: 05/20/19 13:40 The scribe's documentation has been prepared under my direction and personally reviewed by me in its entirety. I confirm that the note above accurately reflects all work, treatment, procedures, and medical decision making performed by me.
[2019-05-20] MEDS: INSULIN ASPART 100 UNITS/ML 3 ML PEN SC SCH ×2 (18:51→21:08)
[2019-05-20] MEDS: DOCUSATE SODIUM 100 MG CAP PO SCH (21:08)
[2019-05-20] MEDS: PANTOprazole 40 MG TAB PO SCH (21:10)
[2019-05-21] MEDS ORDERED: Nursing to Pharmacy Communication ONE ×2 (00:52→21:29)
[2019-05-21] MEDS: OXYCODONE HCL IR 5 MG TAB (IMMEDIATE RELEASE) PO PRN ×2 (03:00→07:12)
[2019-05-21] MEDS: ARMOUR THYROID 30 MG TAB PO SCH (06:07)
[2019-05-21] MEDS: INSULIN ASPART 100 UNITS/ML 3 ML PEN SC SCH ×4 (06:14→21:40)
--- NOTE | 2019-05-21 06:53 | Magnetic Resonance Report ---
MR lumbar spine wo con CLINICAL HISTORY: 88 years-old Female with radiculopathy, new L4L5 herniation. Acute low back pain w ith bilateral lower extremity weakness. No reported trauma. COMPARISON: CT abdomen and pelvis 05/20/2019, MRI of the lumbar spine 03/16/2016. TECHNIQUE: Multiplanar, multi sequence MRI of the lumbar spine was performed without intravenous cont rast. FINDINGS: Intermediate Card Tender localizer images demonstrate no gross extraspinal abnormality. Gaseous distention of the rectos igmoid. No aortic aneurysm or adenopathy. The study is mildly motion degraded. No acute fracture or s ubluxation identified. Modic type II and III endplate degenerative changes noted at L3-L4. No signifi cant bone marrow edema. Synovial cysts are seen about the L5-S1 and to a lesser extent L4-L5 facets b ilaterally. Conus medullaris terminates at the L1 level. Signal within the imaged thoracic spinal cor d and cauda equina appears to be within normal limits. T12-L1: Mild disc space narrowing with mild spondylitic spurring, moderate facet arthrosis and small posterior annular disc bulge. No central canal or foraminal narrowing. L1-L2: Mild disc space narrowing with 2 mm retrolisthesis L1 on L2, likely secondary to long-standin g facet arthrosis. Mild spondylitic spurring with circumferential annular disc bulge, ligamentum flav um thickening and moderate facet arthrosis with trace facet effusions. Flattening of the ventral thec al sac without significant central canal stenosis. Mild left foraminal narrowing. The right neural fo ramen appears patent. No significant change from comparison. L2-L3: Spondylitic spurring with small posterior annular disc bulge, ligamentum flavum thickening an d moderate facet arthrosis. Flattening of the ventral thecal sac without significant central canal or foraminal narrowing, unchanged. L3-L4: Moderate disc space narrowing with likely degenerative 4 mm retrolisthesis. Severe facet arth rosis with ligamentum flavum thickening and trace facet effusions. Spondylitic spurring with circumfe rential annular disc bulge. Additionally, there is a superimposed left paracentral/left lateral reces s disc extrusion or sequestered disc fragment which extends inferiorly to the level of the mid L4 ben tebral body. There is resultant severe central canal stenosis, AP dimension of the thecal sac measuri ng 4 mm with severe left lateral recess, severe left neural foraminal and moderate right neural deuce inal stenosis. Findings have markedly worsened from comparison study. Additionally, there is a right paracentral disc extrusion, image 15 series 6. L4-L5: Severe disc space narrowing with spondylitic spurring, circumferential annular disc bulge wit h marked ligamentum flavum thickening and severe facet arthrosis. AP dimension of the thecal sac lindy ures 6 mm. Moderate to severe central canal narrowing with severe left and severe right neural forami nal stenosis has also progressed from prior. The previously described large central/left paracentral disc protrusion has decreased in size from comparison. L5-S1: Spondylitic spurring with severe facet arthrosis, ligamentum flavum thickening and trace face t effusions with adjacent synovial cysts. Central canal is patent. Mild to moderate bilateral foramin al narrowing is unchanged. IMPRESSION: 1. At L3-L4, discogenic degeneration and facet arthrosis is noted with a left paracentral/left latera l recess disc extrusion or sequestered disc fragment which extends inferiorly to the level of the mid L4 vertebral body. This results in severe central canal, severe left lateral recess and severe left neural foraminal with moderate right neural foraminal stenosis. 2. Moderate to severe central canal stenosis with severe bilateral foraminal narrowing at L4-L5. 3. No acute fracture, subluxation or focal bone marrow edema. The above report was generated using voice recognition software. It may contain grammatical, syntax o r spelling errors. Dictated: 05/20/2019 3:55 PM Transcribed: 05/20/2019 4:16 PM Cara [id number] [email or web address] Electronically signed by: Thomas Pruitt M.D. 05/21/2019 6:52 AM
[2019-05-21 07:35] LABS: Hematocrit (blood only) 43.6 % (37-47); Mean Corpuscular Hgb Conc 32.1 g/dL (32-36); Mean Corpuscular Volume 89.7 fL (80-100); Mean Platelet Volume 11.6 fL (7.4-10.4); Platelet Count 142 K/uL (130-400); RDW Coefficient of Variation 14.4 % (11.5-14.5); RDW Standard Deviation 46.8 fL (36.4-46.3); Red Blood Count 4.86 M/uL (4.2-5.4); White Blood Count 10.87 K/uL (4.8-10.8)
[2019-05-21 07:47] LABS: Partial Thromboplastin Ratio 0.9; Partial Thromboplastin Time 23.1 Seconds (21.0-31.0); Prothrombin Time 10.3 Seconds (9.0-12.0)
[2019-05-21 08:03] LABS: BUN Creatinine Ratio 18.1 (10-20); Calcium 8.6 mg/dl (8.5-10.1); Creatinine Clr Calc Pharmacy 21.5 ml/min; Est GFR (Non-African American) 29.4; Magnesium 2.3 mg/dl (1.8-2.4); Potassium 4.9 mmol/L (3.5-5.1)
[2019-05-21 08:29] LABS: Estimated Average Glucose 171 mg/dl; Hemoglobin A1C 7.6 % (4.5-5.6)
[2019-05-21] MEDS: ACETAMINOPHEN 325 MG TAB PO SCH ×4 (09:32→21:38)
[2019-05-21] MEDS: PANTOprazole 40 MG TAB PO SCH ×2 (09:33→21:38)
[2019-05-21] MEDS: CHOLECALCIFEROL 1,000 UNITS TAB PO SCH (09:33)
[2019-05-21] MEDS: LISINOPRIL 20 MG TAB PO SCH (09:35)
[2019-05-21] MEDS: DOCUSATE SODIUM 100 MG CAP PO SCH ×2 (09:35→21:37)
[2019-05-21] MEDS: predniSONE 5 MG TAB PO SCH (09:35)
[2019-05-21] MEDS: AMLODIPINE BESYLATE 5 MG TAB PO SCH (09:35)
[2019-05-21] MEDS: ATORVASTATIN 20 MG TAB PO SCH (09:36)
[2019-05-21] MEDS: ISOSORBIDE MONO EXTENDED REL 30 MG TABCR PO SCH (09:36)
--- NOTE | 2019-05-21 10:40 | Orthopedic Consultation ---
Date of Consultation May 21, 2019 Assessment & Plan (1) Lumbar disc herniation with radiculopathy: This time her MRI demonstrates significant pre-existing spinal stenosis with acute disc herniation L4-5 on the left. This creating significant neural compression and subsequently accounts for her presentation. We discussed possible treatment options. She would like to consider surgical intervention. It would require a lumbar decompression L3-4 L4-5 with discectomy. Risk benefits pros cons and alternatives were outlined in detail. Risks include but not limited to from anesthesia blindness stroke paralysis nerve damage blood loss current transfusion infection requiring reoperation. Benadryl to be marked improvement colopathy. At this time planning to possibly pursue surgery today if she is medically cleared. Present on Admission?: Yes History of Present Illness Reason for Consultation: Back and left leg pain Attending Physician: Domitila Riley, DO History of Present Illness This is a very pleasant 88-year-old female who presents with severe left leg pain beginning approximately 3 weeks ago. She does have a history of lumbar spinal stenosis and is undergone several lumbar epidural injections in the past. They usually provide relief. Unfortunately this recent event is quite incapacitating nature. She was subsequently brought to the emergency room last night and admitted secondary to pain. She describes pain involving the left buttock posterior thigh extending to the foot. There is weakness involving left lower extremity and difficulty ambulating. Pain medication is not helping her pain in fact making her quite sick. Right lower extremity is essentially asymptomatic. Allergies Allergy/AdvReac Type Severity Reaction Status Date / Time technetium-99m Allergy Severe RASH Unverified 12/12/18 18:31 calamine Allergy Mild RASH WORSE Unverified 12/12/18 18:31 tetanus toxoid, adsorbed Allergy Mild Verified 12/12/18 18:31 cephalexin Allergy Unknown RASH Verified 12/12/18 18:31 meclizine AdvReac Unknown Verified 05/20/19 12:08 Home Medications Home Medications Medication Instructions Recorded Confirmed Type Fish Oil 1 cap PO DAILY 12/12/18 05/20/19 History aspirin [Aspirin Low Dose] 81 mg PO DAILY 12/12/18 05/20/19 History atorvastatin 20 mg PO DAILY 12/12/18 05/20/19 History docusate sodium [Doc-Q-Lace] 100 mg PO BID 12/12/18 05/20/19 History flaxseed oil 1,000 mg PO DAILY 12/12/18 05/20/19 History isosorbide mononitrate 30 mg PO DAILY 12/12/18 05/20/19 History lansoprazole 30 mg PO BID 12/12/18 05/20/19 History mesalamine [Asacol HD] 800 mg PO DAILY 12/12/18 05/20/19 History prednisone 5 mg PO DAILY 12/12/18 05/20/19 History sennosides [senna] 8.6 mg PO DAILY PRN 12/12/18 05/20/19 History sitagliptin 100 mg PO DAILY 12/12/18 05/20/19 History amlodipine 5 mg PO DAILY 05/20/19 05/20/19 History cholecalciferol (vitamin D3) 2,000 unit PO DAILY 05/20/19 05/20/19 History [Vitamin D3] hydrocortisone acetate 25 mg [place] DAILY PRN 05/20/19 05/20/19 History lisinopril 20 mg PO DAILY 05/20/19 05/20/19 History thyroid (pork) [[place] Thyroid] 30 mg PO SUTUTHSA 05/20/19 05/20/19 History thyroid (pork) [[place] Thyroid] 60 mg PO MOWEFR 05/20/19 05/20/19 History Patient History Medical History CKD (chronic kidney disease), stage III (Chronic) Ulcerative colitis (Chronic) Hypertension (Chronic) Coronary artery disease (Chronic) NSTEMI 1989, Left heart cath, treated medically Hiatal hernia (Chronic) GERD (gastroesophageal reflux disease) (Chronic) Polymyalgia rheumatica (Chronic) Left bundle branch block (Chronic) Hypothyroidism (Chronic) History of cervical cancer (Chronic) NSTEMI (non-ST elevated myocardial infarction) (Inactive) Silent myocardial infarction (Inactive ~1989) Surgical History History of tonsillectomy (Chronic) History of partial hysterectomy (Chronic) H/O hemorrhoidectomy (Chronic) Status post appendectomy (Chronic) Status post cholecystectomy (Chronic) Status post total knee replacement (Chronic) Family History Mother Parkinson disease Father Coronary heart disease Myocardial infarction Social History Preferred Language: Occitan Communication Ability: Effective Correction Officer Required: No Beliefs That Will Affect Care: None Current Living Situation: Spouse Other Information That Helps Us Care for You: No Feels Safe at Home: Yes Safety Concerns: Feels Safe At This Time Smoking Status: Former smoker Do You Dip or Chew Tobacco: No Second Hand Exposure: No Tobacco Cessation Education Requested by Patient: No Hx Alcohol Use: No Hx Substance Use: No Physical Exam Physical Exam: Patient is alert and oriented in obvious distress when I had her sit up. She exhibits reasonable sensation to cold and light touch bilateral extremities with a left foot drop compared to 5 out of 5 strength on the right. Plantarflexion is a 5 or 5 bilaterally. She is positive tension signs on the left. Results & Data Vital Signs (Past 12 Hours) Vital Signs Temp Pulse Pulse Resp BP Pulse Ox 05/21/19 08:02 36.6 C 56 L 20 106/62 94 05/20/19 22:58 36.6 C 57 L 16 103/60 93
--- NOTE | 2019-05-21 11:02 | XRay Report ---
XR chest 1V portable HISTORY: 88 years-old Female surgery preoperative exam. No acute chest complaints COMPARISON: Chest radiograph 12/12/2018, CT abdomen and pelvis 05/20/2019 TECHNIQUE: Portable AP view of the chest FINDINGS: Cardiac silhouette is enlarged, unchanged. Patient is rotated towards the left. Calcified plaque the thoracic aortic arch. Blunting of the bilateral costophrenic angles with left lung base opacities. Mo derate hiatal hernia. No pneumothorax. Degenerative changes of the shoulders and spine with bilateral rotator cuff calcific tendinosis. Cholecystectomy. IMPRESSION: 1. Cardiomegaly without overt pulmonary edema. 2. Left basilar opacities are redemonstrated suggestive of probable atelectasis. 3. Moderate hiatal hernia. 4. Unchanged blunting of the costophrenic angles suggestive of scarring/atelectasis without large ple ural effusion. The above report was generated using voice recognition software. It may contain grammatical, syntax o r spelling errors. Electronically signed by: Thomas Pruitt M.D. 05/21/2019 11:00 AM
--- NOTE | 2019-05-21 11:37 | Cardiology Consultation ---
Date of Consultation May 21, 2019 Assessment & Plan (1) Preop cardiovascular exam: Patient is an 88-year-old female presenting with intractable back pain and radicular signs setting of known herniated disc. She carries a history of presumed coronary disease by EKG with preserved LV systolic function and no valvular disease. Chronic left bundle branch block is present No recent signs of angina or congestive heart failure or tachyarrhythmias Exercise recently curtailed due to back issues though she is been active to a level above 5 mets Patient without absolute contraindications to surgery. Surgical risk will be elevated due to age and underlying morbidities. Further testing for risk stratification would be unhelpful. Options of conservative therapy already exhausted with patient unwilling to continue level of pain and immobility. She is aware of potential cardiac and medical risk Would consider postoperative telemetry bed if any hemodynamic instability (2) Lumbar disc herniation with radiculopathy: (3) Left bundle branch block: Chronic long-standing (4) Hypertension: Past hypertension and hypertensive urgency currently controlled, continue usual medications (5) Polymyalgia rheumatica: Patient on chronic prednisone therapy follow closely for need for stress dose steroid History of Present Illness Reason for Consultation: Preoperative cardiovascular examination Requesting Physician: Dr. Sydney Villatoro Attending Physician: Domitila Riley, History of Present Illness Patient is an 88-year-old female whose cardiac/medical issues are notable for 1. History of silent PA 1990 by EKG with preserved LV function 2. Chronic left bundle branch block 3. Hypertension with past hypertensive urgency 4. Type 2 diabetes mellitus 5. CKD stage III Patient presents this admission with intractable pain secondary to lumbar disc herniation with new radiculopathy despite conservative therapies including injection treatment. Patient denies any recent cardiac complaints chest pains worsening shortness of breath orthopnea or tachypalpitations. 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 She denies fevers chills or productive cough. Notes no syncope or near syncope. No sense tachypalpitations. No bleeding difficulties. No prior complications with anesthesia She does carry a history of mild elevation of troponin in September 2018 in the setting of acute pneumonia and renal insufficiency without echocardiographic changes Appetite is generally good with weight gradually trending downward. Back pain is been severely limiting recently with pain now excruciating EKG chronic left bundle branch block variable T waves anterolateral leads consistent with past tracings Allergies Allergy/AdvReac Type Severity Reaction Status Date / Time technetium-99m Allergy Severe RASH Unverified 12/12/18 18:31 calamine Allergy Mild RASH WORSE Unverified 12/12/18 18:31 tetanus toxoid, adsorbed Allergy Mild Verified 12/12/18 18:31 cephalexin Allergy Unknown RASH Verified 12/12/18 18:31 meclizine AdvReac Unknown Verified 05/20/19 12:08 Home Medications Home Medications Medication Instructions Recorded Confirmed Type Fish Oil 1 cap PO DAILY 12/12/18 05/20/19 History aspirin [Aspirin Low Dose] 81 mg PO DAILY 12/12/18 05/20/19 History atorvastatin 20 mg PO DAILY 12/12/18 05/20/19 History docusate sodium [Doc-Q-Lace] 100 mg PO BID 12/12/18 05/20/19 History flaxseed oil 1,000 mg PO DAILY 12/12/18 05/20/19 History isosorbide mononitrate 30 mg PO DAILY 12/12/18 05/20/19 History lansoprazole 30 mg PO BID 12/12/18 05/20/19 History mesalamine [Asacol HD] 800 mg PO DAILY 12/12/18 05/20/19 History prednisone 5 mg PO DAILY 12/12/18 05/20/19 History sennosides [senna] 8.6 mg PO DAILY PRN 12/12/18 05/20/19 History sitagliptin 100 mg PO DAILY 12/12/18 05/20/19 History amlodipine 5 mg PO DAILY 05/20/19 05/20/19 History cholecalciferol (vitamin D3) 2,000 unit PO DAILY 05/20/19 05/20/19 History [Vitamin D3] hydrocortisone acetate 25 mg [place] DAILY PRN 05/20/19 05/20/19 History lisinopril 20 mg PO DAILY 05/20/19 05/20/19 History thyroid (pork) [[place] Thyroid] 30 mg PO SUTUTHSA 05/20/19 05/20/19 History thyroid (pork) [[place] Thyroid] 60 mg PO MOWEFR 05/20/19 05/20/19 History Patient History Medical History CKD (chronic kidney disease), stage III (Chronic) Ulcerative colitis (Chronic) Hypertension (Chronic) Coronary artery disease (Chronic) NSTEMI 1989, Left heart cath, treated medically Hiatal hernia (Chronic) GERD (gastroesophageal reflux disease) (Chronic) Polymyalgia rheumatica (Chronic) Left bundle branch block (Chronic) Hypothyroidism (Chronic) History of cervical cancer (Chronic) NSTEMI (non-ST elevated myocardial infarction) (Inactive) Silent myocardial infarction (Inactive ~1989) Surgical History History of tonsillectomy (Chronic) History of partial hysterectomy (Chronic) H/O hemorrhoidectomy (Chronic) Status post appendectomy (Chronic) Status post cholecystectomy (Chronic) Status post total knee replacement (Chronic) Family History Mother Parkinson disease Father Coronary heart disease Myocardial infarction Social History Preferred Language: Burmese Communication Ability: Effective 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 Beliefs That Will Affect Care: None Current Living Situation: Spouse Other Information That Helps Us Care for You: No Feels Safe at Home: Yes Safety Concerns: Feels Safe At This Time Smoking Status: Former smoker Do You Dip or Chew Tobacco: No Second Hand Exposure: No Tobacco Cessation Education Requested by Patient: No Hx Alcohol Use: No Hx Substance Use: No Review of Systems Review of Systems: All systems reviewed & are unremarkable except as noted in HPI & below Physical Exam Constitutional: WD/WN, vitals as above Eyes: PERRL, conjunctivae normal, anicteric sclerae ENMT: external ear and nose normal, oropharynx normal Neck: trachea midline, no thyromegaly Respiratory: normal respiratory effort, lungs clear to auscultation Cardiovascular: Rate/Rhythm: regular rate and regular rhythm Heart Sounds: normal S1 and normal S2; no gallop and no murmur Palpation: normal PMI Vessels: normal carotid upstroke and radial pulses present; no JVD and no carotid bruit Extremities: + edema (Trace with intact distal pulses) Gastrointestinal (Abdomen): normal bowel sounds, soft, nontender, no he patosplenomegaly Musculoskeletal: no cyanosis or clubbing, extremities motor strength 5/5 Skin: no rashes, warm and dry Neurologic: PERRL, EOMI, accommodation nl, no face palsy, no dysarthria Neuropathic complaints as per history/orthopedic Psychiatric: A+Ox3, euthymic affect Results & Data Vital Signs (Past 12 Hours) Vital Signs Temp Pulse Resp BP Pulse Ox 05/21/19 08:02 36.6 C 56 L 20 106/62 94 Laboratory Results Laboratory Results - last 24 hr 05/20/19 05/20/19 05/21/19 17:04 20:45 05:56 WBC RBC Hgb Hct MCV MCH MCHC RDW Std Deviation RDW Coeff of Geovanna Plt Count MPV PT INR APTT PTT Ratio Sodium Potassium Chloride Carbon Dioxide Anion Gap BUN Creatinine Est Cr Clr Drug Dosing Est GFR ( Amer) Est GFR (Non-Af Amer) BUN/Creatinine Ratio Glucose POC Glucose 130 H 226 H 85 Estimat Average Glucose Hemoglobin A1c Calcium Magnesium 05/21/19 05/21/19 05/21/19 07:21 07:21 07:21 WBC 10.87 H RBC 4.86 Hgb 14.0 Hct 43.6 MCV 89.7 MCH 28.8 MCHC 32.1 RDW Std Deviation 46.8 H RDW Coeff of Geovanna 14.4 Plt Count 142 MPV 11.6 H PT 10.3 INR 1.0 APTT 23.1 PTT Ratio 0.9 Sodium 139 Potassium 4.9 Chloride 107 Carbon Dioxide 25 Anion Gap 7.0 BUN 28 H Creatinine 1.56 H Est Cr Clr Drug Dosing 21.5 Est GFR ( Amer) 34.0 Est GFR (Non-Af Amer) 29.4 BUN/Creatinine Ratio 18.1 Glucose 96 POC Glucose Estimat Average Glucose Hemoglobin A1c Calcium 8.6 Magnesium 2.3 05/21/19 07:21 WBC RBC Hgb Hct MCV MCH MCHC RDW Std Deviation RDW Coeff of Geovanna Plt Count MPV PT INR APTT PTT Ratio Sodium Potassium Chloride Carbon Dioxide Anion Gap BUN Creatinine Est Cr Clr Drug Dosing Est GFR ( Amer) Est GFR (Non-Af Amer) BUN/Creatinine Ratio Glucose POC Glucose Estimat Average Glucose 171 Hemoglobin A1c 7.6 H Calcium Magnesium ECG Additional Comments: ID:[id number] 21-MAY-2019 10:53:58 [facility]-D ROUTINE RETRIEVAL Sinus bradycardia, rate 59 bpm possible Left atrial enlargement Left axis deviation Left bundle branch block Abnormal ECG When compared with ECG of 20-MAY-2019 06:58, T wave inversion more evident in Anterolateral leads
--- NOTE | 2019-05-21 12:50 | Anesthesiology Consultation ---
Date of Service May 21, 2019 Assessment & Plan (1) Encounter for pre-operative examination: Chart Review Chart Review: Acceptable Risk for Surgery and Patient NOT seen in Pre Admission Testing Consults Requested none Per Dr. Perrni with cardiology who performed the patient's preoperative assessment "Patient without absolute contraindications to surgery. Surgical risk will be elevated due to age and underlying morbidities. Further testing for risk stratification would be unhelpful. Options of conservative therapy already exhausted with patient unwilling to continue level of pain and immobility. She is aware of potential cardiac and medical risk." ASA ASA3 Proposed Anesthesia Anesthesia Type: General Risk / Benefits Reviewed With: PT / POA / Parent / Guardian, Accepts Plan and Informed Consent Obtained History Surgery Operation Date: 05/21/19 10:40 Proposed Procedures p L3-L4, L4-L5 Decompression - Guillermo Grimes DO Height/Weight Height: 5 ft 2 in Weight: 61.3 kg Allergies Allergy/AdvReac Type Severity Reaction Status Date / Time technetium-99m Allergy Severe RASH Verified 05/21/19 12:45 calamine Allergy Mild RASH WORSE Verified 05/21/19 12:45 tetanus toxoid, adsorbed Allergy Mild Verified 05/21/19 12:45 cephalexin Allergy Unknown RASH Verified 05/21/19 12:45 meclizine AdvReac Unknown Verified 05/21/19 12:45 Medications Home Medications Medication Instructions Recorded Confirmed Last Taken Fish Oil 1 cap PO DAILY 12/12/18 05/20/19 12/12/18 aspirin [Aspirin Low Dose] 81 mg PO DAILY 12/12/18 05/20/19 12/12/18 atorvastatin 20 mg PO DAILY 12/12/18 05/20/19 12/12/18 docusate sodium [Doc-Q-Lace] 100 mg PO BID 12/12/18 05/20/19 12/12/18 flaxseed oil 1,000 mg PO DAILY 12/12/18 05/20/19 12/12/18 isosorbide mononitrate 30 mg PO DAILY 12/12/18 05/20/19 12/12/18 lansoprazole 30 mg PO BID 12/12/18 05/20/19 12/12/18 mesalamine [Asacol HD] 800 mg PO DAILY 12/12/18 05/20/19 12/12/18 prednisone 5 mg PO DAILY 12/12/18 05/20/19 12/12/18 sennosides [senna] 8.6 mg PO DAILY PRN 12/12/18 05/20/19 12/12/18 sitagliptin 100 mg PO DAILY 12/12/18 05/20/19 12/12/18 amlodipine 5 mg PO DAILY 05/20/19 05/20/19 Unknown cholecalciferol (vitamin D3) 2,000 unit PO DAILY 05/20/19 05/20/19 Unknown [Vitamin D3] hydrocortisone acetate 25 mg [place] DAILY PRN 05/20/19 05/20/19 Unknown lisinopril 20 mg PO DAILY 05/20/19 05/20/19 Unknown thyroid (pork) [[place] Thyroid] 30 mg PO SUTUTHSA 05/20/19 05/20/19 Unknown thyroid (pork) [[place] Thyroid] 60 mg PO MOWEFR 05/20/19 05/20/19 Unknown Active Medications Generic Name Dose Route Start Last Admin Trade Name Freq PRN Reason Stop Dose Admin Acetaminophen 650 mg 05/20/19 13:57 05/21/19 09:32 Tylenol PO 06/19/19 13:56 650 mg QID WILLIAN Administration Al Hydrox/Mg Hydrox/Simethicone 30 ml 05/20/19 13:57 05/20/19 23:32 Maalox PO 06/19/19 13:56 30 ml Q6H PRN Administration Dyspepsia Amlodipine Besylate 5 mg 05/20/19 13:57 05/21/19 09:35 Norvasc PO 06/19/19 13:56 5 mg DAILY WILLIAN Administration Atorvastatin Calcium 20 mg 05/21/19 09:00 05/21/19 09:36 Lipitor PO 06/20/19 08:59 20 mg DAILY WILLIAN Administration Docusate Sodium 100 mg 05/20/19 21:00 05/21/19 09:35 Colace PO 06/19/19 20:59 100 mg BID WILLIAN Administration Insulin Aspart 0 units 05/21/19 06:00 05/21/19 06:14 Novolog Flexpen SC 06/20/19 05:59 Not Given Q6 WILLIAN Isosorbide Mononitrate 30 mg 05/21/19 09:00 05/21/19 09:36 Imdur Extended Rel PO 06/20/19 08:59 30 mg DAILY WILLIAN Administration Lisinopril 20 mg 05/20/19 13:57 05/21/19 09:35 Zestril PO 06/19/19 13:56 20 mg DAILY WILLIAN Administration Miscellaneous 1 ea 05/20/19 16:00 05/21/19 08:22 Order Awaiting Action N/A 06/19/19 15:59 Not Given QS WILLIAN Oxycodone HCl 5 mg 05/20/19 13:57 05/21/19 07:12 Roxicodone Immediate Rel PO 06/03/19 13:56 5 mg Q4H PRN Administration Moderate Pain Pantoprazole Sodium 40 mg 05/20/19 21:00 05/21/19 09:33 Protonix PO 06/19/19 20:59 40 mg BID WILLIAN Administration Prednisone 5 mg 05/21/19 09:00 05/21/19 09:35 Prednisone PO 06/20/19 08:59 5 mg DAILY WILLIAN Administration Thyroid 60 mg 05/21/19 06:30 05/21/19 06:07 [place] Thyroid PO 06/20/19 06:29 60 mg [id number] WILLIAN Administration Vitamin D 2,000 units 05/21/19 09:00 05/21/19 09:33 Vitamin D3 PO 06/20/19 08:59 2,000 units DAILY WILLIAN Administration NPO Date Last Intake of Fluids: 05/21/19 Time Last Intake of Fluids: 08:20 Last Intake of Fluids Comment: for meds Date Last Intake of Solids: 05/20/19 Time Last Intake of Solids: 21:00 Past Medical History Medical History CKD (chronic kidney disease), stage III (Chronic) Ulcerative colitis (Chronic) Hypertension (Chronic) Coronary artery disease (Chronic) NSTEMI 1989, treated medically Hiatal hernia (Chronic) GERD (gastroesophageal reflux disease) (Chronic) Polymyalgia rheumatica (Chronic) Left bundle branch block (Chronic) Hypothyroidism (Chronic) History of cervical cancer (Chronic) NSTEMI (non-ST elevated myocardial infarction) (Inactive) Silent myocardial infarction (Inactive ~1989) Exercise / Class Metabolic Activity III < 4 Walking/Shop/Light housework Negative for chest pain or shortness of breath. Past Family History Family History Mother Parkinson disease Father Coronary heart disease Myocardial infarction Past Surgical History Surgical History History of tonsillectomy (Chronic) History of partial hysterectomy (Chronic) H/O hemorrhoidectomy (Chronic) Status post appendectomy (Chronic) Status post cholecystectomy (Chronic) Status post total knee replacement (Chronic) Past Anesthesia History No Hx of Anesthesia Complications History of PONV No Hx of PONV and No Hx of Motion Sickness Social History Smoking Status: Former smoker Do You Dip or Chew Tobacco: No Hx Alcohol Use: No Hx Substance Use: No substance use type: does not use Review of Systems Patient denies active symptoms of GERD. Pain and weakness in left leg. Physical Exam Vital Signs Last Vital Signs Temp 36.6 C 05/21/19 12:46 Pulse 75 05/21/19 12:46 Resp 18 05/21/19 12:46 BP 149/76 H 05/21/19 12:46 Pulse Ox 94 05/21/19 12:46 Constitutional not obese ENMT Mouth: no TMJ abnormality and oral opening not small Thyromental Distance: < 3.5 Finger Breadths Mallampati Class: II Neck normal visual inspection and + limited neck extension Respiratory normal respiratory effort Auscultation: lungs clear to auscultation bilaterally Cardiovascular Rate/Rhythm: regular rate and regular rhythm Heart Sounds: no murmur Neurologic moves all extremities Psychiatric Orientation: alert and oriented x 3 Testing Laboratory Results 05/21/19 07:21 05/21/19 07:21 PT 10.3 Seconds (9.0-12.0) 05/21/19 07:21 INR 1.0 (0.9-1.1) 05/21/19 07:21 APTT 23.1 Seconds (21.0-31.0) 05/21/19 07:21 Hemoglobin A1c 7.6 % (4.5-5.6) H 05/21/19 07:21 05/21/19 05/21/19 11:59 05:56 POC Glucose 115 H 85 Electrocardiogram Date: 05/21/19 Findings: + SB @ (59) Possible Left atrial enlargement, Left axis deviation, Left bundle branch block, When compared with ECG of 20-MAY-2019 06:58, T wave inversion more evident in An terolateral leads Echocardiogram Date: 12/13/18 EF: 50-55% LV Function: normal RWMA: + none Other Findings: + LVH (moderate, concentric) Valvular Disease: + no significant valvular disease
[2019-05-21] MEDS ORDERED: fentaNYL citrate 100 MCG/2 ML VIAL ONE (14:09)
[2019-05-21] MEDS ORDERED: BUPIVACAINE/EPINEPHRINE 0.5% MPF 1:200,000 30 ML VIAL ONE (14:12)
[2019-05-21] MEDS ORDERED: BACITRACIN INJ 50,000 UNIT VIAL ONE (14:12)
[2019-05-21] MEDS ORDERED: HYDROmorphone INJ 1 MG/ML SYRINGE IV PRN ×2 (14:21→17:12)
[2019-05-21] MEDS ORDERED: ONDANSETRON INJ 2 MG/ML 2 ML VIAL IV PRN ×2 (14:21→17:12)
[2019-05-21] MEDS ORDERED: ePHEDrine sulfate 50 MG/ML AMP IV PRN (14:21)
[2019-05-21] MEDS ORDERED: ATROPINE SULFATE 0.1 MG/ML 10ML SYR IV PRN (14:21)
[2019-05-21] MEDS ORDERED: FLOSEAL HEMOSTATIC MATRIX 10ML TOP ONE (15:00)
[2019-05-21] MEDS ORDERED: CEFAZOLIN 2000MG 2,000 MG/15 ML SYR IV ONE (15:01)
[2019-05-21] MEDS ORDERED: GLYCOPYRROLATE 0.2 MG/ML VIAL ONE (15:20)
[2019-05-21] MEDS ORDERED: PROPOFOL IV EMULSION 10 MG/ML 20 ML VIAL IV ONE (15:20)
[2019-05-21] MEDS ORDERED: LIDOCAINE HCL 2% 2 ML VIAL/AMP(20MG/ML) INFIL ONE (15:20)
[2019-05-21] MEDS ORDERED: DEXAMETHASONE SOD INJ 4 MG/ML VIAL ONE (15:20)
[2019-05-21] MEDS ORDERED: NEOSTIGMINE METHYLSULFATE 1 MG/ML 10ML VIAL ONE (15:20)
[2019-05-21] MEDS ORDERED: ONDANSETRON INJ 2 MG/ML 2 ML VIAL ONE (15:20)
[2019-05-21] MEDS ORDERED: ePHEDrine sulfate 50 MG/ML AMP ONE (15:21)
[2019-05-21] MEDS ORDERED: PHENYLEPHRINE 100MCG/ML 5ML SYR ONE (15:21)
[2019-05-21] MEDS ORDERED: CEFAZOLIN 250 MG/ML 1 GM VIAL ONE (15:21)
[2019-05-21] MEDS ORDERED: ROCURONIUM BROMIDE 10 MG/ML 5 ML VIAL ONE (15:22)
[2019-05-21] MEDS ORDERED: PHENYLEPHRINE HCL 10 MG/ML VIAL ONE (15:27)
--- NOTE | 2019-05-21 16:00 | Operative Report ---
Post Operative Report Pre & Post Diagnosis Operation Date: 05/21/19 10:40 Pre-Op Diagnosis: Lumbar disc herniation with radiculopathy Post-Op Diagnosis: Lumbar disc herniation with radiculopathy Procedure Operation Date: 05/21/19 10:40 Actual Procedures #1 lumbar decompression with bilateral medial facetectomies L3-4 L4-5. #2 removal of herniated free fragments at L3-4 and L4-5. Surgeon Guillermo Grimes DO Systems Program Manager Nel Liu Estimated Blood Loss 50 Findings Consistent with Post-Op Diagnosis Specimens None Indications This is an 80-year-old female who presents with above-mentioned diagnosis after failing extensive course of nonoperative care demonstrating neurologic decline and severe pain elected to go the above-mentioned procedure. Description of Procedure Patient was met with identified and informed consent obtained. Patient was then taken to the operative suite underwent intubation placed in a prone position the Babar table on top of the Juvenal frame. All bony prominences well-padded eyes inspected to ensure no external pressure placed upon the peer at this point the lumbar spine was prepped and draped in normal sterile fashion. Sharp dissection with the assistance of Bovie cautery was performed down to and exposing the lamina of L3 and L4 bilaterally. From a caudal cephalad fashion a midline decompression involving L4 and L3 was performed including bilateral medial facetectomies at L3-4 L4-5 bilaterally addressing severe lateral recess stenosis. I then identified several herniated free fragments along the left L4 pedicle. These were removed in their entirety. After complete decompression the incision was copiously irrigated and a 10 round FERNANDEZ drain inserted. The incision was then closed with 1 Vicryl in the fascia 2-0 Vicryl subcutaneous and 4 Monocryl for final skin closure. Steri-Strip sterile dressings placed. Patient will continue to PACU stable condition. Please note Nel Liu present throughout the entire procedure involved in patient positioning complex portions of the surgery and final skin closure. I attest to the content of the Intraoperative Record and any orders documented therein. Any exceptions are noted below.
--- NOTE | 2019-05-21 16:06 | Fluoroscopy Report ---
FL lumbar spine 2-3V CLINICAL HISTORY: L3-5 DECOMPRESSION COMPARISON STUDY: None FLUOROSCOPY TIME: NUMBER OF FLUOROSCOPIC IMAGES: 1 FINDINGS: Image intensifier was utilized for intraoperative lumbar localization purposes IMPRESSION: Image intensifier was utilized for intraoperative purposes The above report was generated using voice recognition software. It may contain grammatical, syntax or spelling errors. Electronically signed by: Mitesh Gil M.D. 05/21/2019 4:05 PM
[2019-05-21] MEDS: fentaNYL citrate 100 MCG/2 ML VIAL IV PRN ×4 (16:30→16:45)
--- NOTE | 2019-05-21 16:53 | Anesthesiology Progress Note ---
Date of Service May 21, 2019 Anesthesia Post Procedure Vital Signs Vital Signs: Temp Pulse Pulse Resp BP Pulse Ox 05/21/19 16:45 36.6 C 70 16 104/59 L 95 05/21/19 16:40 76 16 118/58 L 98 05/21/19 16:30 77 16 122/59 L 99 05/21/19 16:20 36.7 C 97 H 16 127/63 98 05/21/19 12:46 36.6 C 75 18 149/76 H 94 05/21/19 08:02 36.6 C 56 L 20 106/62 94 05/20/19 22:58 36.6 C 57 L 16 103/60 93 Pain Intensity Left Hip: Pain Intensity: 2 Back: Pain Intensity: 5 Transfer of Care Handoff Completed per policy Notes Mental Status: alert / awake / arousable and participated in evaluation Patient Amnestic to Procedure: Yes Nausea / Vomiting: adequately controlled Pain: adequately controlled Airway Patency, RR, SpO2: stable & adequate BP & HR: stable & adequate Hydration State: stable & adequate Anesthetic Complications: no major complications apparent and Pt Satisfied with anesthetic care
[2019-05-21] MEDS ORDERED: DO NOT ADMINISTER FLU VACCINE PRN (17:12)
[2019-05-21] MEDS ORDERED: DO NOT ADMINISTER PNEUMOCOCCAL VACCINE PRN (17:12)
[2019-05-21] MEDS ORDERED: OXYCODONE HCL IR 5 MG TAB (IMMEDIATE RELEASE) PO PRN (17:12)
[2019-05-21] MEDS: SODIUM CHLORIDE 0.9% 1000ML 1,000 ML IV SCH (17:45)
--- NOTE | 2019-05-21 19:05 | Hospitalist Progress Note ---
Date of Service May 21, 2019 Assessment & Plan (1) Post-operative state: Dong well, cont daily prednisone. (2) Lumbar disc herniation with radiculopathy: Post-op pain well managed. Cont PT/OT efforts as guided by Ortho Spine. DVT prophylaxis recommended once cleared by surgeon. (3) Coronary artery disease: appears stable, denies chest pain. Holding ASA 81mg. Cont medical management including Lipitor, Lisinopril. Not on BB likely related to bradycardia. (4) DM type 2 (diabetes mellitus, type 2): Hold Januvia, Cont ISS with glargine and carb coverage. BSG controlled. (5) Hypertension: Hypotension noted, hold lisinopril and norvasc. (6) CKD (chronic kidney disease), stage III: At baseline (7) Polymyalgia rheumatica: chronic prednisone (8) Hypothyroidism: continue armour thyroid (9) Ulcerative colitis: Mesalamine OK to take once brought from home. Not on formulary. (10) DVT prophylaxis: SCDS/TEDS for now would start chemoprophylaxis and add aspirin back once OK with Dr. Grimes. Full Code Domitila Riley DO [facility] Hospitalist Subjective doing well post-op. feels better since admission BP low after anesthesia. Asymptomatic Review of Systems Review of Systems: All systems reviewed & are unremarkable except as noted in HPI & below Physical Exam Physical Exam: CONSTITUTIONAL: WNWD, elderly, vitals as above, generally well-appearing EYES: normal conjunctivae, no scleral icterus ENT: MMM RESPIRATORY: clear to auscultation bilaterally, no crackles, rales or wheezes, normal respiratory effort CARDIOVASCULAR: regular rate and rhythm, S1 and 2 heard without murmurs, gallops or rubs, no JVD, no peripheral edema BACK: larger lumbar dressing in place over surgical site. c/d/i GASTROINTESTINAL: soft, NTND MUSCULOSKELETAL: strength 5/5 throughout, head is normocephalic and atraumatic SKIN: warm and dry NEUROLOGIC: no gross focal deficits. PSYCHIATRIC: alert and oriented. Results & Data Vital Signs (Past 12 Hours) Vital Signs Temp Pulse Pulse Resp BP Pulse Ox 05/21/19 18:11 36.7 C 73 16 102/67 95 05/21/19 17:38 36.4 C L 67 17 104/51 L 94 05/21/19 17:00 68 16 111/51 L 94 05/21/19 16:45 36.6 C 70 16 104/59 L 95 05/21/19 16:40 76 16 118/58 L 98 05/21/19 16:30 77 16 122/59 L 99 05/21/19 16:20 36.7 C 97 H 16 127/63 98 05/21/19 12:46 36.6 C 75 18 149/76 H 94 05/21/19 08:02 36.6 C 56 L 20 106/62 94 Laboratory Results Short CBC 05/21/19 Range/Units 07:21 WBC 10.87 H (4.8-10.8) K/uL Hgb 14.0 (12.0-16.0) g/dL Hct 43.6 (37-47) % Plt Count 142 (130-400) K/uL BMP 05/21/19 07:21 Sodium 139 Potassium 4.9 Chloride 107 Carbon Dioxide 25 BUN 28 H Creatinine 1.56 H Glucose 96 Calcium 8.6 Medications Administered Current Inpatient Medications Acetaminophen (Tylenol) 650 mg PO Q4H PRN PRN Reason: pain/fever Stop: 06/19/19 13:56 Acetaminophen (Tylenol) 650 mg PO QID [facility] Stop: 06/19/19 13:56 Last Admin: 05/21/19 21:38 Dose: 650 mg Documented by: Al Hydrox/Mg Hydrox/Simethicone (Maalox) 30 ml PO Q6H PRN PRN Reason: Dyspepsia Stop: 06/19/19 13:56 Last Admin: 05/20/19 23:32 Dose: 30 ml Documented by: Amlodipine Besylate (Norvasc) 5 mg PO DAILY [facility] Stop: 06/19/19 13:56 Last Admin: 05/21/19 09:35 Dose: 5 mg Documented by: Atorvastatin Calcium (Lipitor) 20 mg PO DAILY [facility] Stop: 06/20/19 08:59 Last Admin: 05/21/19 09:36 Dose: 20 mg Documented by: Dextrose (Dextrose 50%) 25 - 50 ml IV UD PRN; Protocol PRN Reason: Hypoglycemia Protocol Stop: 06/19/19 13:56 Docusate Sodium (Colace) 100 mg PO BID [facility] Stop: 06/19/19 20:59 Last Admin: 05/21/19 21:37 Dose: 100 mg Documented by: Glucagon (Glucagen) 1 mg SQ UD PRN; Protocol PRN Reason: Hypoglycemia Protocol Stop: 06/19/19 13:56 Glucose (Glucose 40%) 15 - 30 gm PO UD PRN; Protocol PRN Reason: Hypoglycemia Protocol Stop: 06/19/19 13:56 Glucose (Dex4 Glucose) 4 - 8 tabs PO UD PRN; Protocol PRN Reason: Hypoglycemia Protocol Stop: 06/19/19 13:56 Hydromorphone HCl (Dilaudid) 0.5 mg IV Q3H PRN PRN Reason: MILD Pain 1,2,3 Stop: 06/04/19 17:11 Cefazolin Sodium (Ancef 1000mg) 1,000 mg in 7.5 mls @ 150 mls/hr IV Q8H [facility]; Protocol Stop: 05/22/19 13:02 Last Admin: 05/21/19 21:37 Dose: 150 mls/hr Documented by: Sodium Chloride (Nss 1000ml) 1,000 mls @ 80 mls/hr IV .[id number] [facility] Stop: 05/22/19 17:11 Last Admin: 05/21/19 17:45 Dose: 80 mls/hr Documented by: Influenza Virus Vaccine Quadrival (Flu Vaccine, Do Not Administer) 1 ea N/A PRN PRN PRN Reason: Notification Stop: 06/20/19 17:11 Insulin Aspart (Novolog Flexpen) 0 units SC ACHS [facility] Stop: 06/20/19 05:59 Last Admin: 05/21/19 21:40 Dose: 3 units Documented by: Isosorbide Mononitrate (Imdur Extended Rel) 30 mg PO DAILY [facility] Stop: 06/20/19 08:59 Last Admin: 05/21/19 09:36 Dose: 30 mg Documented by: Lisinopril (Zestril) 20 mg PO DAILY [facility] Stop: 06/19/19 13:56 Last Admin: 05/21/19 09:35 Dose: 20 mg Documented by: Magnesium Hydroxide (Milk Of Magnesia) 30 ml PO Q6H PRN PRN Reason: Constipation Stop: 06/19/19 13:56 Miscellaneous (Order Awaiting Action) 1 ea N/A QS [facility] Stop: 06/19/19 15:59 Last Admin: 05/21/19 23:34 Dose: Not Given Documented by: Miscellaneous (Carbohydrates For Hypoglycemia) 15 - 30 gm PO UD PRN PRN Reason: Hypoglycemia Treatment Stop: 06/19/19 13:56 Morphine Sulfate (Morphine Sulfate) 2 mg IV Q4H PRN PRN Reason: Severe Pain Stop: 06/03/19 13:56 Ondansetron HCl (Zofran) 4 mg IV Q6H PRN PRN Reason: Nausea Stop: 06/19/19 13:56 Ondansetron HCl (Zofran) 4 mg IV Q6H PRN PRN Reason: Nausea And Vomiting Stop: 06/20/19 17:11 Oxycodone HCl (Roxicodone Immediate Rel) 5 mg PO Q4H PRN PRN Reason: Moderate Pain Stop: 06/03/19 13:56 Last Admin: 05/21/19 07:12 Dose: 5 mg Documented by: Oxycodone HCl (Roxicodone Immediate Rel) 5 mg PO Q4H PRN PRN Reason: MODERATE Pain 4,5,6 Stop: 06/04/19 17:11 Pantoprazole Sodium (Protonix) 40 mg PO BID [facility] Stop: 06/19/19 20:59 Last Admin: 05/21/19 21:38 Dose: 40 mg Documented by: Pneumococcal Polyvalent Vaccine (Pneumococcal Vacc, Do Not Administer) 1 ea N/A PRN PRN PRN Reason: Notification Stop: 06/20/19 17:11 Polyethylene Glycol (Miralax Powder Packet) 17 gm PO DAILY PRN PRN Reason: Constipation Stop: 06/19/19 13:56 Prednisone (Prednisone) 5 mg PO DAILY [facility] Stop: 06/20/19 08:59 Last Admin: 05/21/19 09:35 Dose: 5 mg Documented by: Sodium Chloride ([place] Nasal) 2 sprays NA TID PRN PRN Reason: Congestion Stop: 06/20/19 23:35 Thyroid ([place] Thyroid) 60 mg PO [id number]@0630 [facility] Stop: 06/20/19 06:29 Last Admin: 05/21/19 06:07 Dose: 60 mg Documented by: Thyroid ([place] Thyroid) 30 mg PO [id number] [facility] Stop: 06/21/19 06:29 Vitamin D (Vitamin D3) 2,000 units PO DAILY [facility] Stop: 06/20/19 08:59 Last Admin: 05/21/19 09:33 Dose: 2,000 units Documented by:
[2019-05-21] MEDS: CEFAZOLIN 1000MG 1,000 MG/7.5 ML SYR IV SCH (21:37)
[2019-05-21] MEDS ORDERED: SODIUM CHLORIDE 0.65% NA SOLN 45 ML (OCEAN) PRN (23:36)
[2019-05-22] MEDS: ARMOUR THYROID 30 MG TAB PO SCH (05:52)
[2019-05-22] MEDS: CEFAZOLIN 1000MG 1,000 MG/7.5 ML SYR IV SCH ×2 (05:52→13:37)
[2019-05-22] MEDS: SODIUM CHLORIDE 0.9% 1000ML 1,000 ML IV SCH (06:06)
[2019-05-22 08:05] LABS: Hematocrit (blood only) 37.2 % (37-47); Mean Corpuscular Hgb Conc 32.3 g/dL (32-36); Mean Corpuscular Volume 87.9 fL (80-100); Mean Platelet Volume 10.6 fL (7.4-10.4); Platelet Count 168 K/uL (130-400); RDW Coefficient of Variation 14.2 % (11.5-14.5); RDW Standard Deviation 45.7 fL (36.4-46.3); Red Blood Count 4.23 M/uL (4.2-5.4); White Blood Count 14.12 K/uL (4.8-10.8)
[2019-05-22 08:39] LABS: BUN Creatinine Ratio 19.2 (10-20); Calcium 8.5 mg/dl (8.5-10.1); Creatinine Clr Calc Pharmacy 20.8 ml/min; Est GFR (African American) 32.8; Est GFR (Non-African American) 28.3; Potassium 4.7 mmol/L (3.5-5.1)
--- NOTE | 2019-05-22 08:44 | Orthopedic Progress Note ---
Date of Service May 22, 2019 Assessment & Plan (1) Lumbar disc herniation with radiculopathy: This time will initiate physical therapy monitor her FERNANDEZ output hopefully she will be able to discharge home this weekend. Present on Admission?: Yes Subjective Patient's back pain is controlled leg symptoms markedly improved. Physical Exam Physical Exam: On exam she is sitting up in bed eating breakfast. She is very comfortable. Exhibiting some continued foot drop on the left though does appear to be improved from her status yesterday. Results & Data Vital Signs (Past 12 Hours) Vital Signs Temp Pulse Resp BP Pulse Ox 05/22/19 07:31 36.3 C L 48 L 14 112/58 L 95 05/22/19 03:34 36.4 C L 57 L 17 95/54 L 95 05/21/19 23:00 36.7 C 74 18 92/52 L 92
[2019-05-22] MEDS: AMLODIPINE BESYLATE 5 MG TAB PO SCH ×2 (09:17→13:59)
[2019-05-22] MEDS: CHOLECALCIFEROL 1,000 UNITS TAB PO SCH (09:17)
[2019-05-22] MEDS: ATORVASTATIN 20 MG TAB PO SCH (09:18)
[2019-05-22] MEDS: predniSONE 5 MG TAB PO SCH (09:18)
[2019-05-22] MEDS: ACETAMINOPHEN 325 MG TAB PO SCH ×4 (09:18→20:52)
[2019-05-22] MEDS: ISOSORBIDE MONO EXTENDED REL 30 MG TABCR PO SCH (09:18)
[2019-05-22] MEDS: PANTOprazole 40 MG TAB PO SCH ×2 (09:18→20:52)
[2019-05-22] MEDS: LISINOPRIL 20 MG TAB PO SCH ×2 (09:18→13:55)
[2019-05-22] MEDS: DOCUSATE SODIUM 100 MG CAP PO SCH ×2 (09:18→20:52)
[2019-05-22] MEDS: INSULIN ASPART 100 UNITS/ML 3 ML PEN SC SCH ×4 (09:18→20:53)
--- NOTE | 2019-05-22 11:00 | Hospitalist Progress Note ---
Date of Service May 22, 2019 Assessment & Plan (1) Post-operative state: Concern for possible adrenal insufficiency so will hold prednisone and start stress dose steroids with quick taper back to prednisone. (2) Lumbar disc herniation with radiculopathy: post operative state. (3) Coronary artery disease: appears stable, denies chest pain. Holding [id number] and lisinopril held in setting of hypotension. Cont Lipitor (4) DM type 2 (diabetes mellitus, type 2): Hold Januvia, Cont ISS with glargine and carb coverage. Tightened coverage as hydrocortisone was added. (5) Hypertension: hypotensive so Norvasc and lisinopril on hold. (6) CKD (chronic kidney disease), stage III: At baseline (7) Polymyalgia rheumatica: chronic prednisone held as hydrocortisone started above. (8) Hypothyroidism: continue armour thyroid (9) Ulcerative colitis: Mesalamine OK to take once brought from home. Not on formulary. (10) DVT prophylaxis: SCDS/TEDS for now would start chemoprophylaxis and add aspirin back once OK with Dr. Grimes. Full Code Domitila Riley DO [facility] Hospitalist Subjective [place] tired and weak today. Bradycardic and hypotensive overnight. Tolerating PO. Ambulated with PT today. Denies tingling or numbness. Pain well managed. Review of Systems Review of Systems: All systems reviewed & are unremarkable except as noted in HPI & below Physical Exam Physical Exam: CONSTITUTIONAL: WNWD, elderly, vitals as above, generally well-appearing EYES: normal conjunctivae, no scleral icterus ENT: MMM RESPIRATORY: clear to auscultation bilaterally, no crackles, rales or wheezes, normal respiratory effort CARDIOVASCULAR: regular rate and rhythm, S1 and 2 heard without murmurs, gallops or rubs, no JVD, no peripheral edema BACK: larger lumbar dressing in place over surgical site. c/d/i GASTROINTESTINAL: soft, NTND MUSCULOSKELETAL: strength 5/5 throughout, head is normocephalic and atraumatic SKIN: warm and dry NEUROLOGIC: no gross focal deficits. PSYCHIATRIC: alert and oriented. Results & Data Vital Signs (Past 12 Hours) Vital Signs Temp Pulse Resp BP Pulse Ox 05/22/19 07:31 36.3 C L 48 L 14 112/58 L 95 05/22/19 03:34 36.4 C L 57 L 17 95/54 L 95 Laboratory Results Short CBC 05/22/19 Range/Units 07:52 WBC 14.12 H (4.8-10.8) K/uL Hgb 12.0 (12.0-16.0) g/dL Hct 37.2 (37-47) % Plt Count 168 (130-400) K/uL BMP 05/22/19 07:52 Sodium 138 Potassium 4.7 Chloride 108 H Carbon Dioxide 22 BUN 31 H Creatinine 1.61 H Glucose 158 H Calcium 8.5 Medications Administered Current Inpatient Medications Acetaminophen (Tylenol) 650 mg PO QID [facility] Stop: 06/19/19 13:56 Last Admin: 05/22/19 20:52 Dose: 650 mg Documented by: Al Hydrox/Mg Hydrox/Simethicone (Maalox) 30 ml PO Q6H PRN PRN Reason: Dyspepsia Stop: 06/19/19 13:56 Last Admin: 05/20/19 23:32 Dose: 30 ml Documented by: Amlodipine Besylate (Norvasc) 5 mg PO DAILY [facility] Stop: 06/19/19 13:56 Last Admin: 05/22/19 13:59 Dose: Not Given Documented by: Atorvastatin Calcium (Lipitor) 20 mg PO DAILY [facility] Stop: 06/20/19 08:59 Last Admin: 05/22/19 09:18 Dose: 20 mg Documented by: Dextrose (Dextrose 50%) 25 - 50 ml IV UD PRN; Protocol PRN Reason: Hypoglycemia Protocol Stop: 06/19/19 13:56 Docusate Sodium (Colace) 100 mg PO BID [facility] Stop: 06/19/19 20:59 Last Admin: 05/22/19 20:52 Dose: 100 mg Documented by: Glucagon (Glucagen) 1 mg SQ UD PRN; Protocol PRN Reason: Hypoglycemia Protocol Stop: 06/19/19 13:56 Glucose (Glucose 40%) 15 - 30 gm PO UD PRN; Protocol PRN Reason: Hypoglycemia Protocol Stop: 06/19/19 13:56 Glucose (Dex4 Glucose) 4 - 8 tabs PO UD PRN; Protocol PRN Reason: Hypoglycemia Protocol Stop: 06/19/19 13:56 Hydromorphone HCl (Dilaudid) 0.5 mg IV Q3H PRN PRN Reason: MILD Pain 1,2,3 Stop: 06/04/19 17:11 Hydrocortisone Sodium (Succinate 50 mg/ Syringe) 1 mls @ 4 mls/min IV Q8H [facility] Stop: 06/21/19 11:59 Last Admin: 05/22/19 20:48 Dose: 4 mls/min Documented by: Influenza Virus Vaccine Quadrival (Flu Vaccine, Do Not Administer) 1 ea N/A PRN PRN PRN Reason: Notification Stop: 06/20/19 17:11 Insulin Aspart (Novolog Flexpen) 0 units SC ACHS [facility] Stop: 06/20/19 05:59 Last Admin: 05/22/19 20:53 Dose: 3 units Documented by: Isosorbide Mononitrate (Imdur Extended Rel) 30 mg PO DAILY [facility] Stop: 06/20/19 08:59 Last Admin: 05/22/19 09:18 Dose: 30 mg Documented by: Lisinopril (Zestril) 20 mg PO DAILY [facility] Stop: 06/19/19 13:56 Last Admin: 05/22/19 13:55 Dose: Not Given Documented by: Magnesium Hydroxide (Milk Of Magnesia) 30 ml PO Q6H PRN PRN Reason: Constipation Stop: 06/19/19 13:56 Mesalamine (Delzicol) 800 mg PO DAILY [facility] Stop: 06/22/19 08:59 Miscellaneous (Carbohydrates For Hypoglycemia) 15 - 30 gm PO UD PRN PRN Reason: Hypoglycemia Treatment Stop: 06/19/19 13:56 Morphine Sulfate (Morphine Sulfate) 2 mg IV Q4H PRN PRN Reason: Severe Pain Stop: 06/03/19 13:56 Ondansetron HCl (Zofran) 4 mg IV Q6H PRN PRN Reason: Nausea Stop: 06/19/19 13:56 Ondansetron HCl (Zofran) 4 mg IV Q6H PRN PRN Reason: Nausea And Vomiting Stop: 06/20/19 17:11 Oxycodone HCl (Roxicodone Immediate Rel) 5 mg PO Q4H PRN PRN Reason: Moderate Pain Stop: 06/03/19 13:56 Last Admin: 05/23/19 00:02 Dose: 5 mg Documented by: Oxycodone HCl (Roxicodone Immediate Rel) 5 mg PO Q4H PRN PRN Reason: MODERATE Pain 4,5,6 Stop: 06/04/19 17:11 Pantoprazole Sodium (Protonix) 40 mg PO BID [facility] Stop: 06/19/19 20:59 Last Admin: 05/22/19 20:52 Dose: 40 mg Documented by: Pneumococcal Polyvalent Vaccine (Pneumococcal Vacc, Do Not Administer) 1 ea N/A PRN PRN PRN Reason: Notification Stop: 06/20/19 17:11 Polyethylene Glycol (Miralax Powder Packet) 17 gm PO DAILY PRN PRN Reason: Constipation Stop: 06/19/19 13:56 Prednisone (Prednisone) 5 mg PO DAILY [facility] Stop: 06/20/19 08:59 Last Admin: 05/22/19 09:18 Dose: 5 mg Documented by: Sodium Chloride ([place] Nasal) 2 sprays NA TID PRN PRN Reason: Congestion Stop: 06/20/19 23:35 Last Admin: 05/22/19 00:09 Dose: 2 sprays Documented by: Thyroid ([place] Thyroid) 60 mg PO MoWeFr@0630 [facility] Stop: 06/20/19 06:29 Last Admin: 05/21/19 06:07 Dose: 60 mg Documented by: Thyroid ([place] Thyroid) 30 mg PO SuTuThSa@0630 [facility] Stop: 06/21/19 06:29 Last Admin: 05/22/19 05:52 Dose: 30 mg Documented by: Vitamin D (Vitamin D3) 2,000 units PO DAILY [facility] Stop: 06/20/19 08:59 Last Admin: 05/22/19 09:17 Dose: 2,000 units Documented by:
[2019-05-22] MEDS: HYDROCORTISONE SOD 50 MG in SYRINGE 0 ML IV SCH ×2 (11:55→20:48)
[2019-05-22] MEDS: OXYCODONE HCL IR 5 MG TAB (IMMEDIATE RELEASE) PO PRN (11:55)
--- NOTE | 2019-05-22 15:10 | Cardiology Progress Note ---
Date of Service May 22, 2019 Assessment & Plan (1) Post-operative state: Patient tolerated surgical procedure without cardiac complication. Would continue preoperative medications used for hypertension follow blood pressures for hypertensive exacerbation with post surgical pain (2) Hypertension: As above (3) Coronary artery disease: No issues currently history notable for non-observed myocardial infarction by EKG criteria in the remote (4) Left bundle branch block: Chronic Subjective Patient seen and examined, chart reviewed. Tolerated surgery well yesterday without difficulty. Back pain is flared somewhat today after initial improvement. No other acute complaints. No chest pains or shortness of breath. Hemodynamically stable Review of Systems Review of Systems: All systems reviewed & are unremarkable except as noted in HPI & below Results & Data Vital Signs (Past 12 Hours) Vital Signs Temp Pulse Resp BP BP Pulse Ox 05/22/19 12:31 36.3 C L 59 L 18 145/79 H 99 05/22/19 07:31 36.3 C L 48 L 14 112/58 L 95 05/22/19 03:34 36.4 C L 57 L 17 95/54 L 95
[2019-05-23] MEDS: OXYCODONE HCL IR 5 MG TAB (IMMEDIATE RELEASE) PO PRN ×2 (00:02→11:46)
[2019-05-23] MEDS: HYDROCORTISONE SOD 50 MG in SYRINGE 0 ML IV SCH ×3 (03:34→20:47)
[2019-05-23] MEDS: ARMOUR THYROID 30 MG TAB PO SCH (05:17)
[2019-05-23] MEDS: DOCUSATE SODIUM 100 MG CAP PO SCH ×2 (09:19→21:38)
[2019-05-23] MEDS: MESALAMINE 400 MG CAPDR PO SCH (09:21)
[2019-05-23] MEDS: ISOSORBIDE MONO EXTENDED REL 30 MG TABCR PO SCH (09:23)
[2019-05-23] MEDS: ATORVASTATIN 20 MG TAB PO SCH (09:24)
[2019-05-23] MEDS: PANTOprazole 40 MG TAB PO SCH ×2 (09:25→21:38)
[2019-05-23] MEDS: ACETAMINOPHEN 325 MG TAB PO SCH ×4 (09:27→21:38)
[2019-05-23] MEDS: CHOLECALCIFEROL 1,000 UNITS TAB PO SCH (09:30)
[2019-05-23] MEDS: INSULIN ASPART 100 UNITS/ML 3 ML PEN SC SCH ×4 (09:40→22:42)
--- NOTE | 2019-05-23 11:01 | Cardiology Progress Note ---
Date of Service May 23, 2019 Assessment & Plan (1) Post-operative state: Patient tolerated surgical procedure without cardiac complication. Would continue preoperative medications used for hypertension follow blood pressures for hypertensive exacerbation with post surgical pain Will sign off patient clinically stable today call with questions or concerns (2) Hypertension: As above (3) Coronary artery disease: No issues currently history notable for non-observed myocardial infarction by EKG criteria in the remote (4) Left bundle branch block: Chronic Subjective Patient seen and examined, chart medications reviewed. Sitting out of bed at bedside standing with out assistance. No chest pains or shortness of breath. No dizziness or lightness. Back and leg pain improved from day prior. Does have mild cough but is using incentive spirometry no hypoxia or dyspnea Physical Exam Constitutional: WD/WN, vitals as above Eyes: PERRL, conjunctivae normal, anicteric sclerae ENMT: external ear and nose normal, oropharynx normal Neck: trachea midline, no thyromegaly Respiratory: normal respiratory effort, lungs clear to auscultation Cardiovascular: Rate/Rhythm: regular rate and regular rhythm Heart Sounds: normal S1 and normal S2; no gallop and no murmur Palpation: normal PMI Vessels: normal carotid upstroke and radial pulses present; no JVD and no carotid bruit Extremities: + edema (Trace with intact distal pulses) Gastrointestinal (Abdomen): normal bowel sounds, soft, nontender, no hepatosplenomegaly Musculoskeletal: no cyanosis or clubbing, extremities motor strength 5/5 Skin: no rashes, warm and dry Neurologic: PERRL, EOMI, accommodation nl, no face palsy, no dysarthria Psychiatric: A+Ox3, euthymic affect Results & Data Vital Signs (Past 12 Hours) Vital Signs Temp Pulse Resp BP Pulse Ox 05/23/19 07:35 36.5 C 56 L 16 156/62 H 95 Laboratory Results Laboratory Results - last 24 hr 05/22/19 05/22/19 05/22/19 12:11 17:16 20:37 POC Glucose 182 H 197 H 219 H 05/23/19 08:26 POC Glucose 154 H
--- NOTE | 2019-05-23 12:56 | Orthopedic Progress Note ---
Date of Service May 23, 2019 Assessment & Plan (1) Lumbar disc herniation with radiculopathy: Present on Admission?: Yes Subjective Back pain is controlled leg symptoms markedly improved. Physical Exam Physical Exam: Patient is able to ambulate about the room is good strength testing. Dressing is clean dry and intact. Results & Data Vital Signs (Past 12 Hours) Vital Signs Temp Pulse Resp BP Pulse Ox 05/23/19 07:35 36.5 C 56 L 16 156/62 H 95
--- NOTE | 2019-05-23 14:53 | Hospitalist Progress Note ---
Date of Service May 23, 2019 Assessment & Plan (1) Post-operative state: (2) Lumbar disc herniation with radiculopathy: S/P lumbar decompression with bilateral medial facetectomies L3-4 L4-5 and removal of herniated free fragments at L3-4 and L4-[address] Grimes No post op complication Continue PT/OT Plan to transfer to rehab tomorrow Fall precaution (3) Coronary artery disease: Denies any chest pain Will resume ASA 81mg on discharge Cont medical management including Lipitor, Lisinopril. Stable from cardiology standpoint (4) DM type 2 (diabetes mellitus, type 2): Hold Januvia, Cont ISS with glargine and carb coverage. BSG controlled. (5) Hypertension: BP stable Amlodipine and lisinopril on hold Will resume on discharge Continue monitor BP (6) CKD (chronic kidney disease), stage III: At baseline (7) Polymyalgia rheumatica: chronic prednisone (8) Hypothyroidism: continue armour thyroid (9) Ulcerative colitis: Mesalamine OK to take once brought from home. Not on formulary. (10) DVT prophylaxis: SCDS/TEDS for now would start chemoprophylaxis and add aspirin back once OK with Dr. Grimes. Full Code Disposition Will discharge to [facility] tomorrow Subjective Pt was seen and examined Sitting in chair with no distress Pt said that she feels much better today She said that she does not have any pain right now She said that she walked with therapist an did ok She plans to go to rehab before going home Denies any chest pain, palpitation, dizziness and SOB Physical Exam Physical Exam: General- No acute distress Head- atraumatic Eyes- PERRL, EOMI, ENT- oropharynx clear Neck- supple, no JVD Lungs- clear to auscultation Heart- regular rhythm; no murmur Abdomen- normal bowel sounds, soft, nontender Extremities- no calf tenderness Neuro- alert, oriented x 3; PERRL, EOMI; no facial palsy; no dysarthria Skin- warm & dry Results & Data Vital Signs (Past 12 Hours) Vital Signs Temp Pulse Resp BP Pulse Ox 05/23/19 07:35 36.5 C 56 L 16 156/62 H 95
[2019-05-23] MEDS ORDERED: ANUSOL SUPP 1 EA PR ONE (18:50)
[2019-05-24] MEDS: HYDROCORTISONE SOD 50 MG in SYRINGE 0 ML IV SCH ×2 (05:00→12:36)
[2019-05-24] MEDS: ARMOUR THYROID 30 MG TAB PO SCH (05:35)
[2019-05-24] MEDS: DOCUSATE SODIUM 100 MG CAP PO SCH (08:33)
[2019-05-24] MEDS: ATORVASTATIN 20 MG TAB PO SCH (08:33)
[2019-05-24] MEDS: PANTOprazole 40 MG TAB PO SCH (08:33)
[2019-05-24] MEDS: ACETAMINOPHEN 325 MG TAB PO SCH ×2 (08:34→12:36)
[2019-05-24] MEDS: ISOSORBIDE MONO EXTENDED REL 30 MG TABCR PO SCH (08:34)
[2019-05-24] MEDS: CHOLECALCIFEROL 1,000 UNITS TAB PO SCH (08:34)
[2019-05-24] MEDS: MESALAMINE 400 MG CAPDR PO SCH (08:34)
[2019-05-24] MEDS: INSULIN ASPART 100 UNITS/ML 3 ML PEN SC SCH ×2 (08:35→12:33)
--- NOTE | 2019-05-24 10:20 | Orthopedic Progress Note ---
Date of Service May 24, 2019 Assessment & Plan (1) Lumbar disc herniation with radiculopathy: This time she is going to be discharged to acute rehab. We will see her back in the office the next 2 weeks. Present on Admission?: Yes Subjective Patient left leg is improved back pain well controlled. Physical Exam Physical Exam: On exam she is ambulate in halls with a walker at a very brisk steady pace. She is quite comfortable. Results & Data Vital Signs (Past 12 Hours) Vital Signs Temp Pulse Pulse Resp BP BP Pulse Ox 05/24/19 07:17 36.4 C L 55 L 16 160/72 H 95 05/24/19 06:50 36.5 C 57 L 16 147/66 H 97 05/23/19 23:15 36.4 C L 60 16 167/68 H 97
--- NOTE | 2019-05-24 13:40 | Hospitalist Progress Note ---
Date of Service May 24, 2019 Assessment & Plan (1) Post-operative state: (2) Lumbar disc herniation with radiculopathy: S/P lumbar decompression with bilateral medial facetectomies L3-4 L4-5 and removal of herniated free fragments at L3-4 and L4-[address] Grimes No post op complication Continue PT/OT Ok from Ortho standpoint Plan to transfer to rehab today Fall precaution Follow up with ortho Dr. Grimes in 2 weeks (3) Coronary artery disease: Denies any chest pain Will resume ASA 81mg on discharge Cont medical management including Lipitor, Lisinopril. Stable from cardiology standpoint (4) DM type 2 (diabetes mellitus, type 2): resume Januvia on discharge Cont ISS with glargine and carb coverage. BSG controlled. (5) Hypertension: Amlodipine resumed today Will resume Lisinopril on discharge Continue monitor BP (6) CKD (chronic kidney disease), stage III: At baseline (7) Polymyalgia rheumatica: chronic prednisone (8) Hypothyroidism: continue armour thyroid (9) Ulcerative colitis: Mesalamine OK to take once brought from home. Not on formulary. (10) DVT prophylaxis: SCDS/TEDS for now Full Code Disposition Will discharge to [facility] today Subjective Pt was seen and examined Sitting in chair with no distress Pt said that she feels fine She said that she does not have any pain Denies any chest pain, palpitation, dizziness and SOB Physical Exam Physical Exam: General- No acute distress Head- atraumatic Eyes- PERRL, EOMI, ENT- oropharynx clear Neck- supple, no JVD Lungs- clear to auscultation Heart- regular rhythm; no murmur Abdomen- normal bowel sounds, soft, nontender Extremities- no calf tenderness Neuro- alert, oriented x 3; PERRL, EOMI; no facial palsy; no dysarthria Skin- warm & dry Results & Data Vital Signs (Past 12 Hours) Vital Signs Temp Pulse Resp BP BP Pulse Ox 05/24/19 07:17 36.4 C L 55 L 16 160/72 H 95 05/24/19 06:50 36.5 C 57 L 16 147/66 H 97
--- NOTE | 2019-05-25 07:32 | Discharge Summary ---
Date of Service May 24, 2019 Admission HPI Per Admitting Provider This is a pleasant 88-year-old female who has a significant PMH of T2DM, CAD, HTN, ulcerative colitis, PMR, hypothyroidism, hiatal hernia, GERD who presents to [facility] ED secondary to severe left lower extremity pain x2 days. She has a known history of L4-5 disc herniation confirmed on MRI. She follows with pain management Dr. Dougherty. She was last seen on 04/28 due to intractable pain in which she received an epidural injection. Previous epidural injection also given on 04/07. Prior to 04/07 she was relatively pain-free for approximately 3 years. She states after receiving injection 04/28 she did have noticeable improvement until approximately 2 days ago. She developed acute onset left lower extremity pain located superiorly/lateral L hip with radiation to L knee with associated numbness/tingling. She also admits to numbness/tingling extending to L foot and associated weakness. Over past two days pain so severe, unable to walk. Made worse with movement and improved with rest. Did not try any medications at home. Pain feels similar to previous pain requiring injection but much more severe. Denies bowel or bladder incontinence. Son at bedside notes pain brought her to tears. Due to [address] Dougherty recommended ED evaluation. She denies any f/c/s, chest pain, sob, palpitations, n/v/d, change in bowel or urinary habits. She lives at home with and when pain absent is relatively independent. Admission Exam Per Admitting Provider Gen: WD/WN, elderly, F, In pain with movement of LLE, sitting up in bed, pleasant, conversing easily Head: Normocephalic, Atraumatic Eyes: Sclera normal, no conjunctival injection, PERRLA, EOMI ENT: Gross hearing intact, normal pharynx, mucous membranes moist Neck: supple, no adenopathy, No JVD, no bruit, Resp: Clear to auscultation b/l, no wheeze, rales, rhonchi. Normal insp/exp effort, no accessory muscle use CV: Regular rate, regular rhythm, 1/6 Indy noted RUSB, no rub, gallop, or ectopy Abd: +BS x 4, soft, nontender, nondistended Musculoskeletal: + Pain to palpation left lateral hip region extending laterally to left knee. There is no erythema or edema. She has pain with passive and active flexion/extension of left leg. No difficulty with dorsi/plantar flexion to L ankle/foot. No pain to vertebral processes, back or buttock. 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 Extremities: No edema bilaterally Skin: warm, moist, no rash, negative turgor, cap refill < 2sec Neuro: Alert and oriented x 3, speech normal, good mood/affect, cran nerve 2-12 intact grossly : deferred Principal Diagnosis Lumbar disc herniation with radiculopathy Diabetes Hypertension CKD (chronic kidney disease), stage III Polymyalgia rheumatica Ulcerative colitis Coronary artery disease Discharge Exam General- No acute distress Head- atraumatic Eyes- PERRL, EOMI, ENT- oropharynx clear Neck- supple, no JVD Lungs- clear to auscultation Heart- regular rhythm; no murmur Abdomen- normal bowel sounds, soft, nontender Extremities- no calf tenderness Neuro- alert, oriented x 3; PERRL, EOMI; no facial palsy; no dysarthria Skin- warm & dry Discharge Data Allergies Allergy/AdvReac Type Severity Reaction Status Date / Time technetium-99m Allergy Severe RASH Verified 05/21/19 12:45 calamine Allergy Mild RASH WORSE Verified 05/21/19 12:45 tetanus toxoid, adsorbed Allergy Mild Verified 05/21/19 12:45 cephalexin Allergy Unknown RASH Verified 05/21/19 12:45 meclizine AdvReac Unknown Verified 05/21/19 12:45 Consultations 05/20/19 11:56 ED Decision to Admit Stat 05/20/19 13:57 Consult Case Management - Discharge Planning Routine Consult Orthopedic Surgery Routine 05/21/19 10:21 Consult Cardiology Stat Procedures Performed Operation Date: 05/21/19 10:40 Actual Procedures p L3-L4, L4-L5 Decompression(Not Applicable) - Guillermo Grimes, Ordered Studies 05/20/19 10:00 CT abd pelvis wo con Urgent 05/20/19 11:57 MR lumbar spine wo con Routine 05/21/19 12:30 FL fluoroscopy <1hr Routine FL lumbar spine 2-3V Routine LEFT HIP 2 VIEWS CLINICAL HISTORY: Left hip pain. FINDINGS: AP and frog-leg views of the left hip are compared to study dated 12/19/2015. The skeletal structures are osteopenic. There is no radiographic evidence of fracture involving the left hip or the visualized left hemipelvis. Moderate arthritic change and joint space narrowing is seen in the left hip. Sclerotic change is partially imaged in the pubic symphysis and left sacroiliac joint. A soft tissue calcification is noted in the upper thigh. The overlying soft tissues are otherwise normal in appearance. IMPRESSION: Osteopenia with no acute bony abnormality identified. Electronically signed by: Paddy Smith M.D. 05/20/2019 8:55 AM Dictated: 05/20/19 0853 Transcribed: 05/20/1953 XR knee LT 3V HISTORY: 88 years-old Female L knee pain, inability to bear weight acute left knee pain with instability COMPARISON: Left knee radiographs 12/09/2009 TECHNIQUE: 3 views of the left knee FINDINGS: Left knee total joint arthroplasty and patella resurfacing. Demineralized appearance of the bones. No evidence of acute hardware complication. No acute fracture or dislocation. Peripheral arterial calcifications are noted. Suspected small joint effusion. IMPRESSION: 1. No acute fracture or dislocation. 2. Left knee total joint arthroplasty and patella resurfacing without evidence of hardware complication. The above report was generated using voice recognition software. It may contain grammatical, syntax or spelling errors. Electronically signed by: Thomas Pruitt M.D. 05/20/2019 8:56 AM Dictated: 05/20/19 0855 Transcribed: 05/20/[address] WITHOUT CONTRAST CT DOSE: HISTORY: low back/hip pain TECHNIQUE: Multiaxial CT images of the abdomen and pelvis were performed without contrast. A dose lowering technique was utilized adhering to the principles of ALARA. COMPARISON STUDY: Abdomen and pelvis CT 11/17/2016. FINDINGS: Mild interstitial thickening and bibasilar densities within the lung bases which favor subsegmental atelectasis. No pneumoperitoneum. No pneumatosis. No suspicious lytic or blastic osseous lesions. Moderate to large hiatus hernia, unchanged. Broad-based posterior disc bulge at L4 L5 resulting in moderate central canal narrowing. There is also a left-sided disc herniation at L4-5 with superior subligamentous migration measuring 7 mm. This appears to compress the left side of the thecal sac at the L4 level and likely compresses the traversing left L4 nerve root given the location. No hepatic or splenic masses on this unenhanced study. Cholecystectomy. The unenhanced pancreas is unremarkable. Mild bilateral perinephric edema is likely chronic. No renal or ureteral stones. No hydronephrosis. Stable 8 mm hyperdense lesion within the lower pole the left kidney. This favors a hyperdense cyst. Normal adrenal glands. No retroperitoneal lymphadenopathy. Normal bladder. A pessary device is seen within the upper vagina. Suboptimal evaluation for bowel pathology due to the lack of intravenous and oral contrast. However, there is no definite bowel wall thickening or obstruction. Colonic diverticulosis. Hysterectomy. The appendix is surgically absent. IMPRESSION: 1. No renal or ureteral stones. No hydronephrosis. 2. No definite bowel wall thickening or obstruction. 3. There is a new L4-5 left-sided disc herniation with superior subligamentous migration measuring 7 mm. This compresses the left side of the thecal sac at the L4 level and likely compresses the transiting left L4 nerve root given the location.. 4. Additional findings as described above. Electronically signed by: Todd Mckeon M.D. 05/20/2019 11:05 AM Dictated: 05/20/19 1050 Transcribed: 05/20/19 1050 MR lumbar spine wo con CLINICAL HISTORY: 88 years-old Female with radiculopathy, new L4L5 herniation. Acute low back pain with bilateral lower extremity weakness. No reported trauma. COMPARISON: CT abdomen and pelvis 05/20/2019, MRI of the lumbar spine 03/16/2016. TECHNIQUE: Multiplanar, multi sequence MRI of the lumbar spine was performed without intravenous contrast. 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 Gaseous distention of the rectosigmoid. No aortic aneurysm or adenopathy. The study is mildly motion degraded. No acute fracture or subluxation identified. Modic type II and III endplate degenerative changes noted at L3-L4. No significant bone marrow edema. Synovial cysts are seen about the L5-S1 and to a lesser extent L4- L5 facets bilaterally. Conus medullaris terminates at the L1 level. Signal within the imaged thoracic spinal cord and cauda equina appears to be within normal limits. T12-L1: Mild disc space narrowing with mild spondylitic spurring, moderate facet arthrosis and small posterior annular disc bulge. No central canal or foraminal narrowing. L1-L2: Mild disc space narrowing with 2 mm retrolisthesis L1 on L2, likely secondary to long-standing facet arthrosis. Mild spondylitic spurring with circumferential annular disc bulge, ligamentum flavum thickening and moderate facet arthrosis with trace facet effusions. Flattening of the ventral thecal sac without significant central canal stenosis. Mild left foraminal narrowing. The right neural foramen appears patent. No significant change from comparison. L2-L3: Spondylitic spurring with small posterior annular disc bulge, ligamentum flavum thickening and moderate facet arthrosis. Flattening of the ventral thecal sac without significant central canal or foraminal narrowing, unchanged. L3-L4: Moderate disc space narrowing with likely degenerative 4 mm retrolisthesis. Severe facet arthrosis with ligamentum flavum thickening and trace facet effusions. Spondylitic spurring with circumferential annular disc bulge. Additionally, there is a superimposed left paracentral/left lateral recess disc extrusion or sequestered disc fragment which extends inferiorly to the level of the mid L4 vertebral body. There is resultant severe central canal stenosis, AP dimension of the thecal sac measuring 4 mm with severe left lateral recess, severe left neural foraminal and moderate right neural foraminal stenosis. Findings have markedly worsened from comparison study. Additionally, there is a right paracentral disc extrusion, image 15 series 6. L4-L5: Severe disc space narrowing with spondylitic spurring, circumferential annular disc bulge with marked ligamentum flavum thickening and severe facet arthrosis. AP dimension of the thecal sac measures 6 mm. Moderate to severe central canal narrowing with severe left and severe right neural foraminal stenosis has also progressed from prior. The previously described large central/left paracentral disc protrusion has decreased in size from comparison. L5-S1: Spondylitic spurring with severe facet arthrosis, ligamentum flavum thickening and trace facet effusions with adjacent synovial cysts. Central canal is patent. Mild to moderate bilateral foraminal narrowing is unchanged. IMPRESSION: 1. At L3-L4, discogenic degeneration and facet arthrosis is noted with a left paracentral/left lateral recess disc extrusion or sequestered disc fragment which extends inferiorly to the level of the mid L4 vertebral body. This results in severe central canal, severe left lateral recess and severe left neural foraminal with moderate right neural foraminal stenosis. 2. Moderate to severe central canal stenosis with severe bilateral foraminal narrowing at L4-L5. 3. No acute fracture, subluxation or focal bone marrow edema. The above report was generated using voice recognition software. It may contain grammatical, syntax or spelling errors. Dictated: 05/20/2019 3:55 PM Transcribed: 05/20/2019 4:16 PM Cara [id number] [email or web address] Electronically signed by: Thomas Pruitt M.D. 05/21/2019 6:52 AM Dictated: 05/20/19 1555 Transcribed: 05/20/19 1616 XR chest 1V portable HISTORY: 88 years-old Female surgery preoperative exam. No acute chest complaints COMPARISON: Chest radiograph 12/12/2018, CT abdomen and pelvis 05/20/2019 TECHNIQUE: Portable AP view of the chest FINDINGS: Cardiac silhouette is enlarged, unchanged. Patient is rotated towards the left. Calcified plaque the thoracic aortic arch. Blunting of the bilateral costophrenic angles with left lung base opacities. Moderate hiatal hernia. No pneumothorax. Degenerative changes of the shoulders and spine with bilateral rotator cuff calcific tendinosis. Cholecystectomy. IMPRESSION: 1. Cardiomegaly without overt pulmonary edema. 2. Left basilar opacities are redemonstrated suggestive of probable atelectasis. 3. Moderate hiatal hernia. 4. Unchanged blunting of the costophrenic angles suggestive of scarring/atelectasis without large pleural effusion. The above report was generated using voice recognition software. It may contain grammatical, syntax or spelling errors. Electronically signed by: Thomas Pruitt M.D. 05/21/2019 11:00 AM Dictated: 05/21/19 1058 Transcribed: 05/21/19 1058 FL lumbar spine 2-3V CLINICAL HISTORY: L3-5 DECOMPRESSION COMPARISON STUDY: None FLUOROSCOPY TIME: NUMBER OF FLUOROSCOPIC IMAGES: 1 FINDINGS: Image intensifier was utilized for intraoperative lumbar localization purposes IMPRESSION: Image intensifier was utilized for intraoperative purposes The above report was generated using voice recognition software. It may contain grammatical, syntax or spelling errors. Electronically signed by: Mitesh Gil M.D. 05/21/2019 4:05 PM Dictated: 05/21/19 1604 Transcribed: 05/21/19 1604 Hospital Course (1) Post-operative state: (2) Lumbar disc herniation with radiculopathy: S/P lumbar decompression with bilateral medial facetectomies L3-4 L4-5 and removal of herniated free fragments at L3-4 and L4-[address] Grimes No post op complication Continue PT/OT Ok from Ortho standpoint Plan to transfer to rehab today Fall precaution Follow up with ortho Dr. Grimes in 2 weeks (3) Coronary artery disease: Denies any chest pain Will resume ASA 81mg on discharge Cont medical management including Lipitor, Lisinopril. Stable from cardiology standpoint (4) DM type 2 (diabetes mellitus, type 2): resume Januvia on discharge Cont ISS with glargine and carb coverage. BSG controlled. (5) Hypertension: Amlodipine resumed today Will resume Lisinopril on discharge Continue monitor BP (6) CKD (chronic kidney disease), stage III: At baseline (7) Polymyalgia rheumatica: chronic prednisone (8) Hypothyroidism: continue armour thyroid (9) Ulcerative colitis: Mesalamine OK to take once brought from home. Not on formulary. (10) DVT prophylaxis: SCDS/TEDS for now Full Code Disposition Will discharge to [facility] today Total Time Total Time Spent Total Time Spent (In Minutes): 35 minutes Total Time Includes: Examination of the Patient, Discharge Planning, Medication Reconciliation, Communication With Other Providers and Other Discharge Plan Discharge Items Patient Disposition: Transfer Inpatient Rehab Fac Reason For Visit: L4-5 DISC HERNIATION, INTRACTABLE PAIN, AMB DYSFUN Discharge Diagnosis: Lumbar disc herniation with radiculopathy Diabetes Hypertension CKD (chronic kidney disease), stage III Polymyalgia rheumatica Ulcerative colitis Coronary artery disease Discharge Goals: Decrease discomfort, Improve disease control, Improve function and Increase independence Activity: Resume your previous activity Activity Comment: As tolerated Non-emergency contact: Primary Care Provider and Surgeon Call non-emergency contact if: you have any medication questions, your wound has increased redness, your wound has increased drainage and your wound pain has increased Follow-up/Referrals: Claudy Kingsley MD [Primary Care Provider] - Diet: Carb Consistent or DM2 Addtl Provider Instructions: Follow up with your primary care provider once discharge from rehab Follow up with Orthopedic Dr. Grimes in 2 weeks Continue physical and occupational therapy Fall precaution WEAR GAURAV HOSE 20 HOURS PER DAY FOR 2 WEEKS. Continue daily dressing change Monitor blood pressure Do not drive or operate any machine after taking tramadol No heavy lifting over 20 pounds for 3 weeks No strenuous activity until cleared by surgeon No submerging incisions underwater for 2 weeks (no swimming, bathing, hot tubs) but you may shower and gently clean the incisions with soap and water and pat dry. Leave Steri-Strips on for 7 days and then remove. Walking and light activities encouraged daily to prevent blood clots from forming You will be given prescription for narcotic pain medication (Percocet) as needed for moderate severe pain. Take as directed this medication may cause drowsiness and constipation. You may take extra strength Tylenol or ibuprofen as needed for mild pain Recommend taking stool softener (Colace) daily while taking pain medication. Prescriptions: New tramadol 50 mg tablet 50 mg PO Q8H PRN (Reason: pain) Qty: 10 RF: 0 Continued sennosides [senna] 8.6 mg Tablet 8.6 mg PO DAILY PRN (Reason: Constipation) RF: 0 atorvastatin 20 mg tablet 20 mg PO DAILY RF: 0 isosorbide mononitrate 30 mg tablet extended release 24 hr 30 mg PO DAILY RF: 0 prednisone 5 mg Tablet 5 mg PO DAILY RF: 0 aspirin [Aspirin Low Dose] 81 mg Tablet,Delayed Release (Dr/Ec) 81 mg PO DAILY RF: 0 flaxseed oil 1,000 mg Capsule 1,000 mg PO DAILY RF: 0 lansoprazole 30 mg capsule,delayed release(DR/EC) 30 mg PO BID RF: 0 docusate sodium [Doc-Q-Lace] 100 mg Capsule 100 mg PO BID RF: 0 sitagliptin 100 mg Tablet 100 mg PO DAILY RF: 0 mesalamine [Asacol HD] 800 mg Tablet,Delayed Release (Dr/Ec) 800 mg PO DAILY RF: 0 Fish Oil 900-1,400 mg Capsule,Delayed Release(Dr/Ec) 1 cap PO DAILY RF: 0 amlodipine 5 mg Tablet 5 mg PO DAILY RF: 0 hydrocortisone acetate 25 mg suppository 25 mg [place] DAILY PRN (Reason: constipation) RF: 0 lisinopril 20 mg Tablet 20 mg PO DAILY RF: 0 cholecalciferol (vitamin D3) [Vitamin D3] 2,000 unit Tablet 2,000 unit PO DAILY RF: 0 thyroid (pork) [[place] Thyroid] 30 mg Tablet 30 mg PO SUTUTHSA RF: 0 thyroid (pork) [[place] Thyroid] 60 mg Tablet 60 mg PO MOWEFR RF: 0 Stand-Alone Forms: [employer] [facility] [employer] Discharge Orders: Discharge Order (Routine); Ordered 05/24/19 Ordered By: Cristy Odom Skilled Items Patient informed of condition?: Yes DNR: No Discharge Level of Care: Acute rehab Communicable Disease: No Discharge Prognosis: Stable Admission Data Admit Date/Time: 05/21/19 14:36 Attending Provider: Cristy Odom Admit Provider: Kristopher Fernandez Primary Care Provider: Claudy Kingsley Other Providers: Shane oRdriguez ; Guillermo Grimes Sabrina M. ; Aydin Maradiaga Service: Medical Other Interventions: Discharge Summary Assessment (RN) Last Done: 05/24/19 14:24 DC Date/Time DO NOT enter until pt leaves facility: 05/24/19 14:36
== END 2019-05-24 14:36 | DRG 516 ==
LOC: ED 06:56 → 3W 06:56 → SUATTDRO 12:51 → 3W 13:40 → SUATTDRO 05-21 14:36

== ENCOUNTER 2019-07-08 10:12 | Inpatient (IN) ==
[2019-07-08] MEDS ORDERED: ONDANSETRON INJ 2 MG/ML 2 ML VIAL IV STA (10:34)
[2019-07-08] MEDS ORDERED: MoRPHine SULFATE 2 MG/ML CARP IV STA (10:34)
[2019-07-08] MEDS ORDERED: SODIUM CHLORIDE 0.9% 1000ML 1,000 ML IV SCH (10:45)
[2019-07-08 11:35] LABS: iSTAT Creatinine 1.4 mg/dl (0.6-1.3); iSTAT Hemoglobin 13.3 g/dl (12.0-16.0); iSTAT Ionized Calcium 1.16 mmol/l (1.12-1.32); iSTAT Potassium 4.1 mEq/L (3.3-5.0)
[2019-07-08 11:39] LABS: Basophils # (auto) 0.04 K/uL (0-0.2); Basophils % (auto) 0.4 %; Eosinophils # (auto) 0.13 K/uL (0-0.5); Eosinophils % (auto) 1.2 %; Hematocrit (blood only) 39.5 % (37-47); Hemoglobin 12.4 g/dL (12.0-16.0); Immature Granulocytes # (auto) 0.04 K/uL (0.00-0.02); Immature Granulocytes % (auto) 0.4 %; Lymphocytes # (auto) 3.09 K/uL (1.2-3.4); Lymphocytes % (auto) 27.9 %; Mean Corpuscular Hemoglobin 28.1 pg (25-34); Mean Corpuscular Hgb Conc 31.4 g/dL (32-36); Mean Corpuscular Volume 89.4 fL (80-100); Mean Platelet Volume 10.4 fL (7.4-10.4); Monocytes # (auto) 0.99 K/uL (0.11-0.59); Monocytes % (auto) 8.9 %; Neutrophils # (auto) 6.78 K/uL (1.4-6.5); Neutrophils % (auto) 61.2 %; Platelet Count 236 K/uL (130-400); RDW Coefficient of Variation 13.9 % (11.5-14.5); RDW Standard Deviation 45.5 fL (36.4-46.3); Red Blood Count 4.42 M/uL (4.2-5.4); White Blood Count 11.07 K/uL (4.8-10.8)
[2019-07-08] MEDS ORDERED: IOVERSOL 100ml IV PRN (11:40)
[2019-07-08 11:51] LABS: Alanine Aminotransferase 21 U/L (12-78); Albumin Level 3.7 gm/dl (3.4-5.0); Aspartate Aminotransferase 17 U/L (15-37); BUN Creatinine Ratio 19.5 (10-20); Blood Urea Nitrogen 27 mg/dl (7-18); Calcium 8.8 mg/dl (8.5-10.1); Carbon Dioxide 26 mmol/L (21-32); Chloride 108 mmol/L (98-107); Est GFR (African American) 39.5; Est GFR (Non-African American) 34.1; Glucose 106 mg/dl (70-99); Sodium 143 mmol/L (136-145)
[2019-07-08 11:53] LABS: Albumin Globulin Ratio 1.1 (0.9-2); Alkaline Phosphatase 76 U/L (45-117); Bilirubin,Total 0.3 mg/dl (0.2-1); Globulin 3.5 gm/dl (2.5-4.0); Total Protein 7.2 gm/dl (6.4-8.2); Troponin I < 0.015 ng/ml (0-0.045)
[2019-07-08 12:01] LABS: Prothrombin Time 10.3 Seconds (9.0-12.0)
--- NOTE | 2019-07-08 12:42 | CT Scan Report ---
HEAD CT NONCONTRAST CT DOSE: HISTORY: fall TECHNIQUE: Multiaxial CT images of the head were performed without the use of intravenous contrast. A utomated exposure control was utilized for this study. A dose lowering technique was utilized adheri ng to the principles of ALARA. Comparison: None. Findings: The paranasal sinuses and mastoid air cells are clear. The calvarium and skull base are int act. There is no mass, hematoma, midline shift, acute infarct. White matter hypodensity is nonspecifi c but suggestive of microvascular ischemic change. The ventricles and sulci demonstrate mild age-rela billy involutional changes. Old left cerebellar infarct. Impression: No acute intracranial abnormality. Atrophy and microvascular ischemic changes. Electronically signed by: Todd Mckeon M.D. 07/08/2019 12:40 PM
--- NOTE | 2019-07-08 12:43 | CT Scan Report ---
CT cervical spine wo con CLINICAL HISTORY: 89 years-old Female presenting with fall diffuse pain. TECHNIQUE: Multidetector CT of the cervical spine was performed without the use of intravenous contra st. IV contrast: None. One or more dose lowering techniques were used consistent with the principles of ALARA (as low as reasonably achievable), including automatic exposure control, mA or kV adjustment to individual patient size, and/or use of iterative reconstruction. COMPARISON: CT neck from 06/19/2017. CT DOSE (mGy.cm): The estimated cumulative dose is 1653.03 mGy.cm. FINDINGS: Intake Clinician topogram: Cholecystectomy clips. Exaggerated cervical lordosis. Vertebral bodies maintain normal height and alignment apart from trace anterolisthesis of C7 on T1. Intervertebral disc height loss to varying degrees most severe at C6-7, where there is vacuum disc phenomenon. Disc osteophyte complexes to varying degrees at every level. The greatest degree of posterior spondylitic spurring is noted at C3-4 and C5-6. Prominent disc bulge with moderate to severe soft tissue effacement of the spinal canal at C4-5. Advanced degenerative ch anges of the atlantodental articulation. Multilevel osseous neural foraminal narrowing. Incidental no te made of bilateral particulates postictus. No acute fracture allowing for suspected underlying oste openia. Visualized portion of the skull base intact. Lung apices clear. IMPRESSION: 1. No acute osseous injury of the cervical spine. 2. Multilevel degenerative changes. Electronically signed by: Mo Gresham M.D. 07/08/2019 12:41 PM
--- NOTE | 2019-07-08 12:47 | CT Scan Report ---
THORACIC SPINE CT CT DOSE: HISTORY: Fall. Back pain. TECHNIQUE: Multiaxial CT images of the thoracic spine were performed and reformatted in the sagittal and coronal plane without the use of contrast. A dose lowering technique was utilized adhering to th e principles of ALARA. COMPARISON: None. FINDINGS: No fractures. No subluxation. Paraspinal soft tissues are unremarkable. Mild disc space marc rowing throughout the thoracic spine. IMPRESSION: No fractures within the thoracic spine. Electronically signed by: Todd Mckeon M.D. 07/08/2019 12:46 PM
--- NOTE | 2019-07-08 12:51 | CT Scan Report ---
CT OF THE LUMBAR SPINE CLINICAL HISTORY: Fall. Back pain. COMPARISON STUDY: Lumbar spine MRI May 20, 2019. TECHNIQUE: Helical axial images of the lumbar spine were obtained. Sagittal and coronal reconstruct ions were viewed. Automated exposure control was utilized for the study. A dose lowering technique was utilized adhering to the principles of ALARA. FINDINGS: There is noted to CT of the abdomen and pelvis will be reported separately. No acute lumbar spine fracture is present. Patient is status post lumbar spine decompression. There is trace gas wit hin the canal. Central canal is suboptimal assessed by CT. There is moderate to severe multilevel dis c space narrowing with ossified ptosis and vacuum disc phenomenon. Sacroiliac joints are intact. IMPRESSION: 1. No acute lumbar spine fracture or subluxation. 2. Status post recent lumbar spine decompression. Electronically signed by: Aldair Giraldo M.D. 07/08/2019 12:49 PM
--- NOTE | 2019-07-08 13:22 | CT Scan Report ---
CT abd pelvis IV con only CLINICAL HISTORY: 89 years-old Female presenting with fall. TECHNIQUE: Multidetector CT of the abdomen and pelvis was performed after the administration of intra venous contrast. IV contrast: Optiray 320. One or more dose lowering techniques were used consistent with the principles of ALARA (as low as reasonably achievable), including automatic exposure control, mA or kV adjustment to individual patient size, and/or use of iterative reconstruction. COMPARISON: 05/20/2019. CT DOSE (mGy.cm): The estimated cumulative dose is 1633.03. 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 Lung bases: Mild multichamber enlargement of the heart. No pericardial or pleural effusion. Minimal d ependent changes likely atelectasis. Punctate calcifications dependently in the lung bases may sugges t a history of chronic aspiration or minimal fibrosis. Elevation of the hemidiaphragms greater on the left. Liver: Normal morphology. No liver lesion. Patent hepatic vasculature. Biliary: Mild biliary ductal prominence likely a reservoir effect in the post cholecystectomy state. Gallbladder surgically absent. Pancreas: Moderate parenchymal atrophy. Spleen: Normal. Adrenal glands: Normal. Kidneys and ureters: Normal. No hydronephrosis. Bladder: Normal. Pelvic organs: Pessary in place. Uterus surgically absent. No adnexal masses. Ovaries normal. Bowel: Diverticulosis of the proximal to mid sigmoid colon without wall thickening or pericolonic inf lammatory change. Mild stool burden throughout normal caliber colon more proximally. The appendix is normal. Large sliding-type hiatal hernia containing a minimal portion of the pancreatic tail. No susana l obstruction. Peritoneal cavity: No free fluid or intraperitoneal gas. Lymph nodes: No enlarged lymph nodes in the abdomen or pelvis. Vasculature: Atherosclerosis of the normal caliber abdominal aorta. IVC patent. Abdominal wall: Normal. Musculoskeletal: Postsurgical changes in the lower lumbar spine from recent laminectomies. Osteopenia . Degenerative changes of the spine. No acute fracture. IMPRESSION: 1. No acute intra-abdominal injury. No acute osseous injury. 2. Chronic findings as above. Electronically signed by: Mo Gresham M.D. 07/08/2019 1:20 PM
--- NOTE | 2019-07-08 13:23 | XRay Report ---
XR pelvis 1-2V routine CLINICAL HISTORY: 89 years-old Female presenting with fall. TECHNIQUE: Single frontal view of the pelvis was obtained. COMPARISON: Correlation made to CT of abdomen and pelvis performed earlier the same day. FINDINGS: Sacroiliac joints, pubic sepsis, and hip joints congruent. Osteopenia is noted. Allowing for this, th e bony pelvis is intact. Arcuate lines of sacrum grossly intact. Degenerative changes of the lower anayeli mbar spine. The femoral necks are grossly intact. No advanced degenerative change. A pessary is in pl nani. Atherosclerotic calcification. IMPRESSION: Allowing for the degree of osteopenia, no acute osseous injury of the pelvis. Electronically signed by: Mo Gresham M.D. 07/08/2019 1:21 PM
--- NOTE | 2019-07-08 13:23 | CT Scan Report ---
CHEST CT WITH CONTRAST CT DOSE: HISTORY: fall TECHNIQUE: Multiaxial CT images of the chest were performed following the intravenous administration of contrast. A dose lowering technique was utilized adhering to the principles of ALARA. COMPARISON: Chest CTA 02/04/2014. FINDINGS: The central airways are patent. No pleural effusions. No pneumothorax. Mild interstitial th ickening at the lung bases with punctate peripheral calcifications. This is consistent with chronic i nterstitial change. Stable 5 mm nodule within the lingula on image 114. Stable 4 mm nodule within the right lung apex on image 60. A few additional stable scattered subcentimeter nodules within the lung s. These are likely benign given the long-term stability. No mediastinal hematoma. No mediastinal or hilar lymphadenopathy. Large hiatus hernia containing the majority of the stomach. This remains uncha nged. The heart remains borderline enlarged. No pericardial effusion. There is a small single filling defect seen within a left upper lobe subsegmental pulmonary artery best seen on image 83. This is co nsistent with a small pulmonary embolus. The remaining pulmonary arteries appear patent. No fractures within the visualized osseous structures of the chest. IMPRESSION: 1. A single small subsegmental pulmonary embolus seen within the left upper lobe. This is age indeter minate. 2. Otherwise, no acute traumatic process within the chest. 3. Large hiatus hernia, unchanged. Electronically signed by: Todd Mckeon M.D. 07/08/2019 1:21 PM
--- NOTE | 2019-07-08 13:23 | XRay Report ---
XR femur RT 2V routine CLINICAL HISTORY: Right leg pain following fall. COMPARISON: CT of the abdomen and pelvis May 20, 2019. FINDINGS: No acute fracture of the right femur is identified. Alignment of the right hip and knee is anatomic. There is moderate osteoarthritis of the right hip and mild to moderate medial compartment osteoarthritis of the right knee. IMPRESSION: No acute fracture within the right femur. Electronically signed by: Aldair Giraldo M.D. 07/08/2019 1:22 PM
--- NOTE | 2019-07-08 13:24 | XRay Report ---
XR femur LT 2V routine CLINICAL HISTORY: 89 years-old Female presenting with fall diffuse pain. TECHNIQUE: Frontal and lateral views of the left femur were obtained. COMPARISON: Correlation made to knee radiographs and hip radiographs from 05/20/2019. FINDINGS: Left hip joint congruent. No femoral neck fracture. Underlying osteopenia. No malalignment or advance d degenerative change of the hip joint. Partially visualized total left knee arthroplasty. No peripro sthetic fracture or lucency. Atherosclerotic calcifications. IMPRESSION: No acute osseous injury of the left femur. Electronically signed by: Mo Gresham M.D. 07/08/2019 1:23 PM
--- NOTE | 2019-07-08 13:24 | XRay Report ---
XR shoulder LT min 2V routine CLINICAL HISTORY: Left shoulder pain following fall. COMPARISON: Chest CT performed earlier today. FINDINGS: Alignment of the left shoulder is in anatomic. No acute fracture is identified. Left shoul israel osteoarthritis is noted. IMPRESSION: No acute fracture or dislocation within the left shoulder. Electronically signed by: Aldair Giraldo M.D. 07/08/2019 1:23 PM
--- NOTE | 2019-07-08 13:35 | XRay Report ---
XR tibia fibula LT 2V CLINICAL HISTORY: 89 years-old Female presenting with fall. TECHNIQUE: Frontal and lateral views of the left lower leg were obtained. COMPARISON: Correlation made to knee radiographs from 05/20/2019. FINDINGS: Partially visualized total left knee arthroplasty. No periprosthetic fracture or lucency. Underlying osteopenia is suspected. The ankle mortise is grossly congruent. No acute fracture or malalignment. N o advanced degenerative change. No radiographic soft tissue abnormality. IMPRESSION: No acute osseous injury. Electronically signed by: Mo Gresham M.D. 07/08/2019 1:34 PM
--- NOTE | 2019-07-08 13:36 | XRay Report ---
XR tibia fibula RT 2V CLINICAL HISTORY: 89 years-old Female presenting with fall. TECHNIQUE: Frontal and lateral views of the right lower leg were obtained. COMPARISON: None. FINDINGS: Knee joint and ankle mortise congruent. Osteopenia suspected. A knee joint effusion may be present. E nthesophyte at the insertion of the quadriceps tendon. No acute fracture or malalignment. No advanced degenerative change. No radiographic soft tissue abnormality. IMPRESSION: 1. No acute osseous injury. 2. Right knee joint effusion. Electronically signed by: Mo Gresham M.D. 07/08/2019 1:35 PM
[2019-07-08] MEDS ORDERED: MoRPHine SULFATE 4 MG/ML 1 ML CARP\\VIAL IV STA (13:54)
[2019-07-08 14:39] LABS: Appearance Urine Clear (Clear); Bacteria Urine Automated Negative (Negative); Bilirubin Urine Negative (Negative); Blood Urine Negative (Negative); Cast Urine Automated 0 /lpf (0-5); Color Urine Yellow; Epithelial Cell Urine Auto 20-30 /lpf (0-5); Glucose Urine UA Negative (Negative); Ketones Urine Negative (Negative); Leukocyte Esterase Urine 1+ (Negative); Nitrite Urine Negative (Negative); Protein Urine Negative (Negative); RBC Urine Automated 0-4 /hpf (0-4); Specific Gravity Urine 1.023 (1.000-1.030); Urobilinogen Urine Negative (Negative)
[2019-07-08] MEDS ORDERED: SENNA 8.6 MG TAB PO PRN (16:02)
--- NOTE | 2019-07-08 16:11 | History & Physical Report ---
Date of Service July 08, 2019 Assessment & Plan (1) Fall: Fell down few steps after suddenly getting out of bed with a nightmare, apparently in a confused state. Exact nature of the fall uncertain. No apparent seizure, loss of consciousness, acute neurologic event. Consider mechanical fall, bradycardia or tachyarrhythmia, orthostasis. Echocardiogram in November 2018 did not show any significant valvular disease; no need to repeat study at this time. Monitor on telemetry. Check orthostatic vital signs. Fall precautions. PT/OT evaluations. Management of specific injuries as discussed below. (2) Vertigo: Patient experienced severe vertigo when she sat up in ED. She does not recall any vertigo prior to her fall. Experiencing some left neck pain. Check MRA cervical vessels to rule out vertebral artery dissection. Check MRI brain to rule out posterior circulation event. Consider concussion from closed head injury. Consider Jorge maneuver if acute cerebrovascular event ruled out. (3) Pulmonary embolism: CT chest showed a small subsegmental pulmonary embolus in the left upper lobe indeterminate age. Doubt clinically significant clot. Check venous duplex. No need to anticoagulate if no evidence of acute DVT. (4) Chest wall pain: Left chest wall pain/tenderness. No apparent rib fractures per CT. Analgesics, incentive spirometry. (5) Shoulder pain, left: Left shoulder pain after fall with pain and decreased range of motion. No fracture or dislocation per plain films. May have rotator cuff injury. Consult Orthopedics. (6) Pain of left lower extremity: No apparent fractures per plain films. Consult Orthopedics. (7) Back pain: Status post recent lumbar surgery Dr. Grimes. Worsening back pain after fall. No apparent fracture or hardware failure per CT. Patient would like Dr. Grimes to see her during her hospital stay. (8) Coronary artery disease: No anginal symptoms. Troponin normal. EKG shows sinus bradycardia with chronic left bundle branch block. Continue aspirin, amlodipine, statin. (9) Hypertension: Continue amlodipine, lisinopril, isosorbide mononitrate with hold parameters. (10) CKD (chronic kidney disease), stage III: Serum creatinine 1.37 compared to baseline of approximately 1.5. Follow. (11) GERD (gastroesophageal reflux disease): Continue PPI. (12) Ulcerative colitis: Quiescent. Continue prednisone and mesalamine. (13) DM type 2 (diabetes mellitus, type 2): Random glucose in ED 106. Hold oral agents during hospital stay. Check hemoglobin A1c. Basal/bolus insulin per protocol. (14) Hypothyroidism: Check TSH with next labs. Continue thyroid replacement. (15) Polymyalgia rheumatica: Check ESR with next labs. Continue prednisone 5 mg daily. (16) DVT prophylaxis: No anticoagulants at this time because of fall and multiple injuries. SCD's. Ambulate. (17) Discharge planning issues: Discharge disposition to be determined. May need skilled care or inpt rehab. Consult Case Management. Medical follow-up with Dr. Kingsley. History of Present Illness Chief Complaint: fall with multiple injuries Primary Care Provider: Claudy Kingsley MD 89-year-old female followed by Dr. Kingsley in [place]. History of coronary artery disease, hypertension, ulcerative colitis, diabetes mellitus type 2, hypothyroidism, PMR, and other problems. 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 Does not get much rest and has lost about 35 pounds over the last year. This morning she was having a nightmare, got out of bed, and start climbing stairs. Fell from about 3 stairs to the floor. She does not recall the exact circumstances of the fall. Uncertain whether she lost her footing or not. No apparent syncope, lightheadedness, chest pain, palpitations, dyspnea, focal neurologic symptoms. She struck the back of her head, left chest, right knee. Experiencing severe left shoulder pain. Notes vertigo when she sits up; does not recall any vertigo prior to the fall. Allergies Allergy/AdvReac Type Severity Reaction Status Date / Time technetium-99m Allergy Severe RASH Verified 07/08/19 10:45 calamine Allergy Mild RASH WORSE Verified 07/08/19 10:45 tetanus toxoid, adsorbed Allergy Mild Verified 07/08/19 10:45 cephalexin Allergy Unknown RASH Verified 07/08/19 10:45 meclizine AdvReac Unknown Verified 07/08/19 10:45 Home Medications Home Medications Medication Instructions Recorded Confirmed Type Fish Oil 1 cap PO DAILY 12/12/18 07/08/19 History aspirin [Aspirin Low Dose] 81 mg PO DAILY 12/12/18 07/08/19 History atorvastatin 20 mg PO DAILY 12/12/18 07/08/19 History docusate sodium [Doc-Q-Lace] 100 mg PO BID 12/12/18 07/08/19 History flaxseed oil 1,000 mg PO DAILY 12/12/18 07/08/19 History isosorbide mononitrate 30 mg PO DAILY 12/12/18 07/08/19 History lansoprazole 30 mg PO BID 12/12/18 07/08/19 History mesalamine [Asacol HD] 800 mg PO DAILY 12/12/18 07/08/19 History prednisone 5 mg PO DAILY 12/12/18 07/08/19 History sennosides [senna] 8.6 mg PO DAILY PRN 12/12/18 07/08/19 History amlodipine 5 mg PO DAILY 05/20/19 07/08/19 History cholecalciferol (vitamin D3) 2,000 unit PO DAILY 05/20/19 07/08/19 History [Vitamin D3] hydrocortisone acetate 25 mg VT DAILY PRN 05/20/19 07/08/19 History lisinopril 20 mg PO DAILY 05/20/19 07/08/19 History thyroid (pork) [[place] Thyroid] 30 mg PO SUTUTHSA 05/20/19 07/08/19 History thyroid (pork) [[place] Thyroid] 60 mg PO MOWEFR 05/20/19 07/08/19 History conjugated estrogens [Premarin] 1 applic TOPICAL UD 07/08/19 07/08/19 History sitagliptin [Januvia] 25 mg PO DAILY 07/08/19 07/08/19 History Past Med/Surg History Medical History CKD (chronic kidney disease), stage III (Chronic) Ulcerative colitis (Chronic) Hypertension (Chronic) Coronary artery disease (Chronic) NSTEMI 1989, treated medically Hiatal hernia (Chronic) GERD (gastroesophageal reflux disease) (Chronic) Polymyalgia rheumatica (Chronic) Left bundle branch block (Chronic) Hypothyroidism (Chronic) History of cervical cancer (Chronic) NSTEMI (non-ST elevated myocardial infarction) (Inactive) Silent myocardial infarction (Inactive ~1989) Surgical History History of tonsillectomy (Chronic) History of partial hysterectomy (Chronic) H/O hemorrhoidectomy (Chronic) Status post appendectomy (Chronic) Status post cholecystectomy (Chronic) Status post total knee replacement (Chronic) Family History Mother Parkinson disease Father Coronary heart disease Myocardial infarction Social History Preferred Language: Yakut Communication Ability: Effective 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 Beliefs That Will Affect Care: None marital status: Current Living Situation: Spouse Other Information That Helps Us Care for You: No Feels Safe at Home: Yes Safety Concerns: Feels Safe At This Time Smoking Status: Never smoker Second Hand Exposure: No ; Hx Alcohol Use: No Hx Substance Use: No Review of Systems Constitutional: + weight loss (35 lbs); no fever Eyes: no diplopia and no worsening vision Ear, Nose, Mouth, Throat: + nasal congestion; no sinus pain/pressure and no sore throat Respiratory: no cough and no dyspnea Cardiovascular: + edema (chronic, controlled with support stockings); no chest pain and no palpitations Gastrointestinal: + nausea; no vomiting, no constipation, no diarrhea/loose stools, no blood in stools and no melena Genitourinary: + dysuria (mild); no hematuria Musculoskeletal: as per Subjective / HPI Integumentary: no rash and no new lesions Neurologic: + headache(s) (as noted in HPI) chronic weakness LLE Psychiatric: stress related to care of spouse with dementia Endocrine: no polydipsia and no polyuria blood sugars run in low 100's Hematologic / Lymphatic: + easy bruising; no easy bleeding and no lymphadenopathy Physical Exam Constitutional: WD/WN, vitals as above no acute distress appears to be uncomfortable Eyes: PERRL, conjunctivae normal, anicteric sclerae ENMT: external ear and nose normal, oropharynx normal Neck: trachea midline, no thyromegaly Respiratory: normal respiratory effort, lungs clear to auscultation Cardiovascular: Rate/Rhythm: regular rate Heart Sounds: no gallop, no murmur and no cardiac rub Vessels: no JVD Extremities: normal capillary refill and + edema (trace pretibial); no calf tenderness Chest (Breasts): Additional Comments: left chest wall tenderness Gastrointestinal (Abdomen): normal bowel sounds, soft, nontender, no hepatosplenomegaly Musculoskeletal: Head/Neck/Chest: neck supple; + evidence of head trauma (contusion left occiput) Extremities: no cyanosis and no clubbing pain and limited ROM left shoulder; pain left knee with leg raising; small effusion right knee Skin: no rashes, warm and dry abrasions right leg Neurologic: PERRL, EOMI no facial palsy no dysarthria or aphasia mild weakness LLE; left foot drop Psychiatric: Orientation: alert and oriented x 3 Affect: + depressed affect and + anxious affect Lymphatic: no cervical lymphadenopathy Results & Data Vital Signs (Past 12 Hours) Vital Signs Temp Pulse Pulse Resp BP BP Pulse Ox 07/08/19 14:54 53 L 16 140/55 L 92 07/08/19 10:22 36.9 C 68 20 195/83 H 97 Laboratory Results Laboratory Results - last 24 hr 07/08/19 07/08/19 07/08/19 11:10 11:11 11:18 WBC 11.07 H RBC 4.42 Hgb 12.4 POC Hgb Hct 39.5 POC Hct MCV 89.4 MCH 28.1 MCHC 31.4 L RDW Std Deviation 45.5 RDW Coeff of Geovanna 13.9 Plt Count 236 MPV 10.4 Immature Gran % (Auto) 0.4 Neut % (Auto) 61.2 Lymph % (Auto) 27.9 Duval % (Auto) 8.9 Eos % (Auto) 1.2 Baso % (Auto) 0.4 Immature Gran # (Auto) 0.04 H Neut # (Auto) 6.78 H Lymph # (Auto) 3.09 Duval # (Auto) 0.99 H Eos # (Auto) 0.13 Baso # (Auto) 0.04 PT 10.3 INR 1.0 POC Sodium Sodium 143 POC Potassium Potassium 4.0 POC Chloride Chloride 108 H Carbon Dioxide 26 POC Total CO2 Anion Gap 9.0 POC Anion Gap POC BUN BUN 27 H Creatinine 1.37 H POC Creatinine Est Cr Clr Drug Dosing 23.0 Est GFR ( Amer) 39.5 Est GFR (Non-Af Amer) 34.1 BUN/Creatinine Ratio 19.5 Glucose 106 H POC Glucose (other) Calcium 8.8 POC Ioniz Calcium Kristina Total Bilirubin 0.3 AST 17 ALT 21 Alkaline Phosphatase 76 Troponin I < 0.015 Total Protein 7.2 Albumin 3.7 Globulin 3.5 Albumin/Globulin Ratio 1.1 Urine Color Urine Appearance Urine pH Ur Specific [place] Urine Protein Urine Glucose (UA) Urine Ketones Urine Blood Urine Nitrite Urine Bilirubin Urine Urobilinogen Ur Leukocyte Esterase Urine WBC (Auto) Urine RBC (Auto) U Hyaline Cast (Auto) U Epithel Cells (Auto) Urine Bacteria (Auto) 07/08/19 07/08/19 11:20 Unknown WBC RBC Hgb POC Hgb 13.3 Hct POC Hct 39 MCV MCH MCHC RDW Std Deviation RDW Coeff of Geovanna Plt Count MPV Immature Gran % (Auto) Neut % (Auto) Lymph % (Auto) Duval % (Auto) Eos % (Auto) Baso % (Auto) Immature Gran # (Auto) Neut # (Auto) Lymph # (Auto) Duval # (Auto) Eos # (Auto) Baso # (Auto) PT INR POC Sodium 143 Sodium POC Potassium 4.1 Potassium POC Chloride 108 Chloride Carbon Dioxide POC Total CO2 21 L Anion Gap POC Anion Gap 19.0 POC BUN 27 H BUN Creatinine POC Creatinine 1.4 H Est Cr Clr Drug Dosing Est GFR ( Amer) Est GFR (Non-Af Amer) BUN/Creatinine Ratio Glucose POC Glucose (other) 117 H Calcium POC Ioniz Calcium Kristina 1.16 Total Bilirubin AST ALT Alkaline Phosphatase Troponin I Total Protein Albumin Globulin Albumin/Globulin Ratio Urine Color Yellow Urine Appearance Clear Urine pH 7.0 Ur Specific [place] 1.023 Urine Protein Negative Urine Glucose (UA) Negative Urine Ketones Negative Urine Blood Negative Urine Nitrite Negative Urine Bilirubin Negative Urine Urobilinogen Negative Ur Leukocyte Esterase 1+ H Urine WBC (Auto) 1-5 Urine RBC (Auto) 0-4 U Hyaline Cast (Auto) 0 U Epithel Cells (Auto) 20-30 H Urine Bacteria (Auto) Negative Diagnostic Findings HEAD CT NONCONTRAST Impression: No acute intracranial abnormality. Atrophy and microvascular ischemic changes. Electronically signed by: Todd Mckeon M.D. 07/08/2019 12:[address] CERVICAL SPINE IMPRESSION: 1. No acute osseous injury of the cervical spine. 2. Multilevel degenerative changes. Electronically signed by: Mo Gresham M.D. 07/08/2019 12:[address] THORACIC SPINE IMPRESSION: No fractures within the thoracic spine. Electronically signed by: Todd Mckeon M.D. 07/08/2019 12:[address] LUMBAR SPINE IMPRESSION: 1. No acute lumbar spine fracture or subluxation. 2. Status post recent lumbar spine decompression. Electronically signed by: Aldair Giraldo M.D. 07/08/2019 12:[address] CHEST IMPRESSION: 1. A single small subsegmental pulmonary embolus seen within the left upper lobe. This is age indeterminate. 2. Otherwise, no acute traumatic process within the chest. 3. Large hiatus hernia, unchanged. Electronically signed by: Todd Mckeon M.D. 07/08/2019 1:[address] ABDOMEN & PELVIS IMPRESSION: 1. No acute intra-abdominal injury. No acute osseous injury. 2. Chronic findings as above. Electronically signed by: Mo Gresham M.D. 07/08/2019 1:20 PM X-RAY RIGHT SHOULDER IMPRESSION: No acute fracture or dislocation within the left shoulder. Electronically signed by: Aldair Giraldo M.D. 07/08/2019 1:23 PM X-RAY PELVIS IMPRESSION: Allowing for the degree of osteopenia, no acute osseous injury of the pelvis. Electronically signed by: Mo Gresham M.D. 07/08/2019 1:21 PM X-RAY LEFT FEMUR IMPRESSION: No acute osseous injury of the left femur. Electronically signed by: Mo Gresham M.D. 07/08/2019 1:23 PM X-RAY RIGHT FEMUR IMPRESSION: No acute fracture within the right femur. Electronically signed by: Aldair Giraldo M.D. 07/08/2019 1:22 PM X-RAY LEFT TIBIA / FIBULA IMPRESSION: No acute osseous injury. Electronically signed by: Mo Gresham M.D. 07/08/2019 1:34 PM X-RAY RIGHT TIBIA / FIBULA IMPRESSION: 1. No acute osseous injury. 2. Right knee joint effusion. Electronically signed by: Mo Gresham M.D. 07/08/2019 1:35 PM ECG Additional Comments: EKG performed at 11:25 reviewed and demonstrated sinus bradycardia at 54 / min, PAC's, LBBB, NSSTTWA's. EKG performed at 14:01 reviewed and demonstrated sinus bradycardia at 55 / min, LBBB, NSSTTWA's. Code Status & VTE Plan Code Status Discussed with patient and her son. Patient has a living will. She would like resuscitation attempted in the event of a cardiopulmonary arrest if there is a reasonable chance of a meaningful recovery. However, she does not want resuscitation attempted rather extraordinary measures initiated or continued if prognosis is very poor. VTE Prophylaxis Plan VTE Prophylaxis will be ordered: Yes (1) Fall Encounter type: initial encounter Qualified Code(s): W19.XXXA - Unspecified fall, initial encounter
--- NOTE | 2019-07-08 16:40 | Emergency Department Note ---
Entered by Allie Leon acting as a scribe for Addison Dumont DO History of Present Illness General Chief complaint: Fall Time Seen by Provider: 07/08/19 10:13 Source: patient Mode of arrival: wheelchair Limitations: no limitations History of Present Illness Onset (ago): hour(s) 1 Radiation: non-radiation Pain Consistency: + now resolved Relieved By: + none Exacerbated By: + other (left leg "gave out") Associated symptoms: + other (+left leg pain, +left shoulder pain, +right ankle pain, +low and mid back pain); no chest pain and no shortness of breath Treatments prior to arrival: none The patient is an 89 year old female who presents to the ED 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 She states she was going upstairs in her home when her left leg "gave out" and she fell, going backwards about 3 steps and hitting her head during the fall. She notes she has previously had her left knee replaced an d states "sometimes it acts up". The patient does take a daily Aspirin. She complains of left leg and hip pain and left shoulder pain. She states her right ankle is also painful and she has previously broken it twice. She denies any chest pain or shortness of breath. She also complains of low and mid back pain. She does admit to diffuse pain throughout her bilateral arms bilateral legs. Home Medications Home Medications Medication Instructions Recorded Confirmed Type Fish Oil 1 cap PO DAILY 12/12/18 07/08/19 History aspirin [Aspirin Low Dose] 81 mg PO DAILY 12/12/18 07/08/19 History atorvastatin 20 mg PO DAILY 12/12/18 07/08/19 History docusate sodium [Doc-Q-Lace] 100 mg PO BID 12/12/18 07/08/19 History flaxseed oil 1,000 mg PO DAILY 12/12/18 07/08/19 History isosorbide mononitrate 30 mg PO DAILY 12/12/18 07/08/19 History lansoprazole 30 mg PO BID 12/12/18 07/08/19 History mesalamine [Asacol HD] 800 mg PO DAILY 12/12/18 07/08/19 History prednisone 5 mg PO DAILY 12/12/18 07/08/19 History sennosides [senna] 8.6 mg PO DAILY PRN 12/12/18 07/08/19 History sitagliptin 100 mg PO DAILY 12/12/18 07/08/19 History amlodipine 5 mg PO DAILY 05/20/19 07/08/19 History cholecalciferol (vitamin D3) 2,000 unit PO DAILY 05/20/19 07/08/19 History [Vitamin D3] hydrocortisone acetate 25 mg OK DAILY PRN 05/20/19 07/08/19 History lisinopril 20 mg PO DAILY 05/20/19 07/08/19 History thyroid (pork) [[place] Thyroid] 30 mg PO SUTUTHSA 05/20/19 07/08/19 History thyroid (pork) [[place] Thyroid] 60 mg PO MOWEFR 05/20/19 07/08/19 History conjugated estrogens [Premarin] 1 applic TOPICAL UD 07/08/19 07/08/19 History sitagliptin [Januvia] 25 mg PO DAILY 07/08/19 07/08/19 History Allergies Allergy/AdvReac Type Severity Reaction Status Date / Time technetium-99m Allergy Severe RASH Verified 07/08/19 10:45 calamine Allergy Mild RASH WORSE Verified 07/08/19 10:45 tetanus toxoid, adsorbed Allergy Mild Verified 07/08/19 10:45 cephalexin Allergy Unknown RASH Verified 07/08/19 10:45 meclizine AdvReac Unknown Verified 07/08/19 10:45 Past Med/Surg History Medical History CKD (chronic kidney disease), stage III (Chronic) Ulcerative colitis (Chronic) Hypertension (Chronic) Coronary artery disease (Chronic) NSTEMI 1989, treated medically Hiatal hernia (Chronic) GERD (gastroesophageal reflux disease) (Chronic) Polymyalgia rheumatica (Chronic) Left bundle branch block (Chronic) Hypothyroidism (Chronic) History of cervical cancer (Chronic) NSTEMI (non-ST elevated myocardial infarction) (Inactive) Silent myocardial infarction (Inactive ~1989) Surgical History History of tonsillectomy (Chronic) History of partial hysterectomy (Chronic) H/O hemorrhoidectomy (Chronic) Status post appendectomy (Chronic) Status post cholecystectomy (Chronic) Status post total knee replacement (Chronic) Family History Mother Parkinson disease Father Coronary heart disease Myocardial infarction Social History Preferred Language: Telugu Communication Ability: Effective Media Marketing Director Required: No Beliefs That Will Affect Care: None marital status: Current Living Situation: Spouse Other Information That Helps Us Care for You: No Feels Safe at Home: Yes Safety Concerns: Feels Safe At This Time Smoking Status: Never smoker Second Hand Exposure: No ; Hx Alcohol Use: No Hx Substance Use: No Review of Systems See HPI for pertinent positives & negatives. and A total of 10 systems reviewed and were otherwise negative Physical Exam Vital Signs Vital Signs - 24 hr 07/08/19 10:22 07/08/19 14:07 07/08/19 14:54 Temperature 36.9 C Temperature Source Oral Sepsis Recent Fever Within 48 Hours No Sepsis New/Unexplained Change in Mental Status No Sepsis Action Taken by Nursing No Action Required Pulse Rate 68 Pulse Rate [Right Finger] 53 L Pulse Rhythm [Right Finger] Regular Pulse Strength [Right Finger] Normal Respiratory Rate 20 16 Respiratory Effort / Characteristics Non-Labored Spontaneous Non-Labored Respiratory Depth Normal Normal Respiratory Pattern Regular Regular Blood Pressure 195/83 H Blood Pressure [Right Arm] 140/55 L Blood Pressure Mean 120 Blood Pressure Mean [Right Arm] 83 Blood Pressure Position [Right Arm] Lying Pulse Oximetry 97 92 Oxygen Delivery Method Room Air Room Air Room Air GENERAL: Patient is alert, laying in bed, on bed rivera, in moderate distress, complaining of pain all over her body, yells on any light touch to any part of her body. HEAD: normal cephalic, atraumatic EYE EXAM: normal conjunctiva, PERRL and EOM's grossly intact OROPHARYNX: no exudate, no erythema, lips, buccal mucosa, and tongue normal and mucous membranes are moist NECK: supple, no nuchal rigidity, no adenopathy, non-tender CHEST: stable to compression anteriorly and posteriorly, diffuse pain on an terior chest wall, worse on the left than right. LUNGS: clear to auscultation. Normal chest wall mechanics HEART: no murmurs, S1 normal and S2 normal ABDOMEN: abdomen soft, non-tender, normo-active bowel sounds, no masses, no rebound or guarding. PELVIS: stable to compression anteriorly and posteriorly, pain in bilateral pelvic wings, left worse than right. BACK: Back is symmetrical on inspection and there is no deformity, diffuse midline tenderness throughout cervical, thoracic and lumbar regions. UPPER EXTREMITIES: full active and passive range of motion of all joints without tenderness to palpation LOWER EXTREMITIES: diffuse pain to light touch throughout lower extremities, bruising to right knee. Active ROM of the right hip, knee and ankle, with diffuse pain, minimal flexion of left hip, significant pain with passive ROM of left hip, knee and ankle. NEURO EXAM: Normal sensorium, cranial nerves II-XII grossly intact, normal speech, no gross weakness of arms. GCS: 15. Course ED COURSE: Vital signs were reviewed and showed the patient is hypertensive. The patients medical record was reviewed The above diagnostic studies were performed and reviewed. ED treatments and interventions as stated above. 1027: The patient was evaluated in room B8. A complete history and physical examination was performed. 1401: She started complaining of some chest pain so we will repeat an EKG. 1422: I discussed the patients case with Patricia Wahl PA-C, [facility] Hospitalist. The patient will be further evaluated. The admitting doctor is Dr. Rodriguez. 1430: Upon reevaluation, the patient is resting comfortably. I discussed my findings with the patient and she understands and agrees with the treatment plan. Based on the patients age, coexisting illnesses, exam and lab findings the decision to treat as an inpatient was made. The patient remained stable while under my care. The patient will be evaluated for further management. Administered Medications Ioversol (Optiray 320 100ml) 93 ml IV ONCE PRN PRN Reason: Interaction Checking Stop: 07/12/19 11:39 Last Admin: 07/08/19 11:40 Dose: 93 ml Documented by: [id number] Discontinued Medications Sodium Chloride (Nss 1000ml) 1,000 mls @ 999 mls/hr IV .Q1H1M WILLIAN Stop: 07/08/19 11:45 Last Infusion: 07/08/19 12:16 Dose: 0 mls/hr Documented by: [id number] Admin: 07/08/19 11:10 Dose: 999 mls/hr Documented by: [id number] Morphine Sulfate (Morphine Sulfate) 2 mg IV NOW STA Stop: 07/08/19 10:35 Last Admin: 07/08/19 11:10 Dose: 2 mg Documented by: [id number] Morphine Sulfate (Morphine Sulfate) 4 mg IV NOW STA Stop: 07/08/19 13:55 Last Admin: 07/08/19 14:11 Dose: 4 mg Documented by: [id number] Ondansetron HCl (Zofran) 4 mg IV NOW STA Stop: 07/08/19 10:35 Last Admin: 07/08/19 11:10 Dose: 4 mg Documented by: [id number] Medical Decision Making Differential Diagnosis Differential diagnoses include major intracranial, cervical, spinal, thoracic, abdominal, pelvic and neurologic injury. Fracture, contusion, sprain, strain, laceration, abrasions included as well. Medical Records Attestation: I reviewed the patient's medical records. Home Medications Current Medication List: was personally reviewed by me Laboratory Data Attestation: I reviewed the patient's lab results. Result diagrams: 07/08/19 11:18 07/08/19 11:11 Lab Results 07/08/19 07/08/19 07/08/19 Range/Units 11:10 11:11 11:18 WBC 11.07 H (4.8-10.8) K/uL RBC 4.42 (4.2-5.4) M/uL Hgb 12.4 (12.0-16.0) g/dL POC Hgb (12.0-16.0) g/dl Hct 39.5 (37-47) % POC Hct (37-47) % MCV 89.4 (80-100) fL MCH 28.1 (25-34) pg MCHC 31.4 L (32-36) g/dL RDW Std Deviation 45.5 (36.4-46.3) fL RDW Coeff of Geovanna 13.9 (11.5-14.5) % Plt Count 236 (130-400) K/uL MPV 10.4 (7.4-10.4) fL Immature Gran % (Auto) 0.4 % Neut % (Auto) 61.2 % Lymph % (Auto) 27.9 % O'Brien % (Auto) 8.9 % Eos % (Auto) 1.2 % Baso % (Auto) 0.4 % Immature Gran # (Auto) 0.04 H (0.00-0.02) K/uL Neut # (Auto) 6.78 H (1.4-6.5) K/uL Lymph # (Auto) 3.09 (1.2-3.4) K/uL O'Brien # (Auto) 0.99 H (0.11-0.59) K/uL Eos # (Auto) 0.13 (0-0.5) K/uL Baso # (Auto) 0.04 (0-0.2) K/uL PT 10.3 (9.0-12.0) Seconds INR 1.0 (0.9-1.1) POC Sodium (135-144) mEq/L Sodium 143 (136-145) mmol/L POC Potassium (3.3-5.0) mEq/L Potassium 4.0 (3.5-5.1) mmol/L POC Chloride (101-112) mEq/L Chloride 108 H (98-107) mmol/L Carbon Dioxide 26 (21-32) mmol/L POC Total CO2 (24-31) mEq/l Anion Gap 9.0 (3-11) POC Anion Gap (16-25) mmol/L POC BUN (7-18) mg/dl BUN 27 H (7-18) mg/dl Creatinine 1.37 H (0.6-1.2) mg/dl POC Creatinine (0.6-1.3) mg/dl Est Cr Clr Drug Dosing 23.0 ml/min Est GFR ( Amer) 39.5 Est GFR (Non-Af Amer) 34.1 BUN/Creatinine Ratio 19.5 (10-20) Glucose 106 H (70-99) mg/dl POC Glucose (other) (70-99) mg/dl Calcium 8.8 (8.5-10.1) mg/dl POC Ioniz Calcium Kristina (1.12-1.32) mmol/l Total Bilirubin 0.3 (0.2-1) mg/dl AST 17 (15-37) U/L ALT 21 (12-78) U/L Alkaline Phosphatase 76 (45-117) U/L Troponin I < 0.015 (0-0.045) ng/ml Total Protein 7.2 (6.4-8.2) gm/dl Albumin 3.7 (3.4-5.0) gm/dl Globulin 3.5 (2.5-4.0) gm/dl Albumin/Globulin Ratio 1.1 (0.9-2) Urine Color Urine Appearance (Clear) Urine pH (4.5-7.5) Ur Specific Benson (1.000-1.030) Urine Protein (Negative) Urine Glucose (UA) (Negative) Urine Ketones (Negative) Urine Blood (Negative) Urine Nitrite (Negative) Urine Bilirubin (Negative) Urine Urobilinogen (Negative) Ur Leukocyte Esterase (Negative) Urine WBC (Auto) (0-5) /hpf Urine RBC (Auto) (0-4) /hpf U Hyaline Cast (Auto) (0-5) /lpf U Epithel Cells (Auto) (0-5) /lpf Urine Bacteria (Auto) (Negative) 07/08/19 07/08/19 Range/Units 11:20 Unknown WBC (4.8-10.8) K/uL RBC (4.2-5.4) M/uL Hgb (12.0-16.0) g/dL POC Hgb 13.3 (12.0-16.0) g/dl Hct (37-47) % POC Hct 39 (37-47) % MCV (80-100) fL MCH (25-34) pg MCHC (32-36) g/dL RDW Std Deviation (36.4-46.3) fL RDW Coeff of Geovanna (11.5-14.5) % Plt Count (130-400) K/uL MPV (7.4-10.4) fL Immature Gran % (Auto) % Neut % (Auto) % Lymph % (Auto) % O'Brien % (Auto) % Eos % (Auto) % Baso % (Auto) % Immature Gran # (Auto) (0.00-0.02) K/uL Neut # (Auto) (1.4-6.5) K/uL Lymph # (Auto) (1.2-3.4) K/uL O'Brien # (Auto) (0.11-0.59) K/uL Eos # (Auto) (0-0.5) K/uL Baso # (Auto) (0-0.2) K/uL PT (9.0-12.0) Seconds INR (0.9-1.1) POC Sodium 143 (135-144) mEq/L Sodium (136-145) mmol/L POC Potassium 4.1 (3.3-5.0) mEq/L Potassium (3.5-5.1) mmol/L POC Chloride 108 (101-112) mEq/L Chloride (98-107) mmol/L Carbon Dioxide (21-32) mmol/L POC Total CO2 21 L (24-31) mEq/l Anion Gap (3-11) POC Anion Gap 19.0 (16-25) mmol/L POC BUN 27 H (7-18) mg/dl BUN (7-18) mg/dl Creatinine (0.6-1.2) mg/dl POC Creatinine 1.4 H (0.6-1.3) mg/dl Est Cr Clr Drug Dosing ml/min Est GFR ( Amer) Est GFR (Non-Af Amer) BUN/Creatinine Ratio (10-20) Glucose (70-99) mg/dl POC Glucose (other) 117 H (70-99) mg/dl Calcium (8.5-10.1) mg/dl POC Ioniz Calcium Kristina 1.16 (1.12-1.32) mmol/l Total Bilirubin (0.2-1) mg/dl AST (15-37) U/L ALT (12-78) U/L Alkaline Phosphatase (45-117) U/L Troponin I (0-0.045) ng/ml Total Protein (6.4-8.2) gm/dl Albumin (3.4-5.0) gm/dl Globulin (2.5-4.0) gm/dl Albumin/Globulin Ratio (0.9-2) Urine Color Yellow Urine Appearance Clear (Clear) Urine pH 7.0 (4.5-7.5) Ur Specific Benson 1.023 (1.000-1.030) Urine Protein Negative (Negative) Urine Glucose (UA) Negative (Negative) Urine Ketones Negative (Negative) Urine Blood Negative (Negative) Urine Nitrite Negative (Negative) Urine Bilirubin Negative (Negative) Urine Urobilinogen Negative (Negative) Ur Leukocyte Esterase 1+ H (Negative) Urine WBC (Auto) 1-5 (0-5) /hpf Urine RBC (Auto) 0-4 (0-4) /hpf U Hyaline Cast (Auto) 0 (0-5) /lpf U Epithel Cells (Auto) 20-30 H (0-5) /lpf Urine Bacteria (Auto) Negative (Negative) Imaging Data Radiologist's Impression: Radiology results as stated below per my review and the radiologist's interpretation: XR tibia fibula RT 2V CLINICAL HISTORY: 89 years-old Female presenting with fall. TECHNIQUE: Frontal and lateral views of the right lower leg were obtained. COMPARISON: None. FINDINGS: Knee joint and ankle mortise congruent. Osteopenia suspected. A knee joint effusion may be present. Enthesophyte at the insertion of the quadriceps tendon. No acute fracture or malalignment. No advanced degenerative change. No radiographic soft tissue abnormality. IMPRESSION: 1. No acute osseous injury. 2. Right knee joint effusion. Electronically signed by: Mo Gresham M.D. 07/08/2019 1:35 PM XR tibia fibula LT 2V CLINICAL HISTORY: 89 years-old Female presenting with fall. TECHNIQUE: Frontal and lateral views of the left lower leg were obtained. COMPARISON: Correlation made to knee radiographs from 05/20/2019. FINDINGS: Partially visualized total left knee arthroplasty. No periprosthetic fracture or lucency. Underlying osteopenia is suspected. The ankle mortise is grossly congruent. No acute fracture or malalignment. No advanced degenerative change. No radiographic soft tissue abnormality. IMPRESSION: No acute osseous injury. Electronically signed by: Mo Gresham M.D. 07/08/2019 1:[address] DOSE: HISTORY: Fall. Back pain. TECHNIQUE: Multiaxial CT images of the thoracic spine were performed and reformatted in the sagittal and coronal plane without the use of contrast. A dose lowering technique was utilized adhering to the principles of ALARA. COMPARISON: None. FINDINGS: No fractures. No subluxation. Paraspinal soft tissues are unremarkable. Mild disc space narrowing throughout the thoracic spine. IMPRESSION: No fractures within the thoracic spine. Electronically signed by: Todd Mckeon M.D. 07/08/2019 12:46 PM XR shoulder LT min 2V routine CLINICAL HISTORY: Left shoulder pain following fall. COMPARISON: Chest CT performed earlier today. FINDINGS: Alignment of the left shoulder is in anatomic. No acute fracture is identified. Left shoulder osteoarthritis is noted. IMPRESSION: No acute fracture or dislocation within the left shoulder. Electronically signed by: Aldair Giraldo M.D. 07/08/2019 1:23 PM XR pelvis 1-2V routine CLINICAL HISTORY: 89 years-old Female presenting with fall. TECHNIQUE: Single frontal view of the pelvis was obtained. COMPARISON: Correlation made to CT of abdomen and pelvis performed earlier the same day. FINDINGS: Sacroiliac joints, pubic sepsis, and hip joints congruent. Osteopenia is noted. Allowing for this, the bony pelvis is intact. Arcuate lines of sacrum grossly intact. Degenerative changes of the lower lumbar spine. The femoral necks are grossly intact. No advanced degenerative change. A pessary is in place. Atherosclerotic calcification. IMPRESSION: Allowing for the degree of osteopenia, no acute osseous injury of the pelvis. Electronically signed by: Mo Gresham M.D. 07/08/2019 1:[address] OF THE LUMBAR SPINE CLINICAL HISTORY: Fall. Back pain. COMPARISON STUDY: Lumbar spine MRI May 20, 2019. TECHNIQUE: Helical axial images of the lumbar spine were obtained. Sagittal and coronal reconstructions were viewed. Automated exposure control was utilized for the study. A dose lowering technique was utilized adhering to the principles of ALARA. FINDINGS: There is noted to CT of the abdomen and pelvis will be reported separately. No acute lumbar spine fracture is present. Patient is status post lumbar spine decompression. There is trace gas within the canal. Central canal is suboptimal assessed by CT. There is moderate to severe multilevel disc space narrowing with ossified ptosis and vacuum disc phenomenon. Sacroiliac joints are intact. IMPRESSION: 1. No acute lumbar spine fracture or subluxation. 2. Status post recent lumbar spine decompression. Electronically signed by: Aldair Giraldo M.D. 07/08/2019 12:[address]AST CT DOSE: HISTORY: fall TECHNIQUE: Multiaxial CT images of the head were performed without the use of intravenous contrast. Automated exposure control was utilized for this study. A dose lowering technique was utilized adhering to the principles of ALARA. Comparison: None. Findings: The paranasal sinuses and mastoid air cells are clear. The calvarium and skull base are intact. There is no mass, hematoma, midline shift, acute infarct. White matter hypodensity is nonspecific but suggestive of microvascular ischemic change. The ventricles and sulci demonstrate mild age-related involutional changes. Old left cerebellar infarct. Impression: No acute intracranial abnormality. Atrophy and microvascular ischemic changes. Electronically signed by: Todd Mckeon M.D. 07/08/2019 12:40 PM XR femur RT 2V routine CLINICAL HISTORY: Right leg pain following fall. COMPARISON: CT of the abdomen and pelvis May 20, 2019. FINDINGS: No acute fracture of the right femur is identified. Alignment of the right hip and knee is anatomic. There is moderate osteoarthritis of the right hip and mild to moderate medial compartment osteoarthritis of the right knee. IMPRESSION: No acute fracture within the right femur. Electronically signed by: Aldair Giraldo M.D. 07/08/2019 1:22 PM XR femur LT 2V routine CLINICAL HISTORY: 89 years-old Female presenting with fall diffuse pain. TECHNIQUE: Frontal and lateral views of the left femur were obtained. COMPARISON: Correlation made to knee radiographs and hip radiographs from 05/20/2019. FINDINGS: Left hip joint congruent. No femoral neck fracture. Underlying osteopenia. No malalignment or advanced degenerative change of the hip joint. Partially visualized total left knee arthroplasty. No periprosthetic fracture or lucency. Atherosclerotic calcifications. IMPRESSION: No acute osseous injury of the left femur. Electronically signed by: Mo Gresham M.D. 07/08/2019 1:[address] WITH CONTRAST CT DOSE: HISTORY: fall TECHNIQUE: Multiaxial CT images of the chest were performed following the intravenous administration of contrast. A dose lowering technique was utilized adhering to the principles of ALARA. COMPARISON: Chest CTA 02/04/2014. FINDINGS: The central airways are patent. No pleural effusions. No pneumothorax. Mild interstitial thickening at the lung bases with punctate peripheral calcifications. This is consistent with chronic interstitial change. Stable 5 mm nodule within the lingula on image 114. Stable 4 mm nodule within the right lung apex on image 60. A few additional stable scattered subcentimeter nodules within the lungs. These are likely benign given the long-term stability. No mediastinal hematoma. No mediastinal or hilar lymphadenopathy. Large hiatus hernia containing the majority of the stomach. This remains unchanged. The heart remains borderline enlarged. No pericardial effusion. There is a small single filling defect seen within a left upper lobe subsegmental pulmonary artery best seen on image 83. This is consistent with a small pulmonary embolus. The remaining pulmonary arteries appear patent. No fractures within the visualized osseous structures of the chest. IMPRESSION: 1. A single small subsegmental pulmonary embolus seen within the left upper lobe. This is age indeterminate. 2. Otherwise, no acute traumatic process within the chest. 3. Large hiatus hernia, unchanged. Electronically signed by: Todd Mckeon M.D. 07/08/2019 1:[address] cervical spine wo con CLINICAL HISTORY: 89 years-old Female presenting with fall diffuse pain. TECHNIQUE: Multidetector CT of the cervical spine was performed without the use of intravenous contrast. IV contrast: None. One or more dose lowering techniques were used consistent with the principles of ALARA (as low as reasonably achievable), including automatic exposure control, mA or kV adjustment to individual patient size, and/or use of iterative reconstruction. COMPARISON: CT neck from 06/19/2017. CT DOSE (mGy.cm): The estimated cumulative dose is 1653.03 mGy.cm. FINDINGS: Treating Engineer Helper topogram: Cholecystectomy clips. Exaggerated cervical lordosis. Vertebral bodies maintain normal height and alignment apart from trace anterolisthesis of C7 on T1. Intervertebral disc height loss to varying degrees most severe at C6-7, where there is vacuum disc phenomenon. Disc osteophyte complexes to varying degrees at every level. The greatest degree of posterior spondylitic spurring is noted at C3-4 and C5-6. Prominent disc bulge with moderate to severe soft tissue effacement of the spinal canal at C4-5. Advanced degenerative changes of the atlantodental articulation. Multilevel osseous neural foraminal narrowing. Incidental note made of bilateral particulates postictus. No acute fracture allowing for suspected underlying osteopenia. Visualized portion of the skull base intact. Lung apices clear. IMPRESSION: 1. No acute osseous injury of the cervical spine. 2. Multilevel degenerative changes. Electronically signed by: Mo Gresham M.D. 07/08/2019 12:[address] abd pelvis IV con only CLINICAL HISTORY: 89 years-old Female presenting with fall. TECHNIQUE: Multidetector CT of the abdomen and pelvis was performed after the administration of intravenous contrast. IV contrast: Optiray 320. One or more dose lowering techniques were used consistent with the principles of ALARA (as low as reasonably achievable), including automatic exposure control, mA or kV adjustment to individual patient size, and/or use of iterative reconstruction. COMPARISON: 05/20/2019. CT DOSE (mGy.cm): The estimated cumulative dose is 1633.03. FINDINGS: Treating Engineer Helper topogram: Unremarkable. Lung bases: Mild multichamber enlargement of the heart. No pericardial or pleural effusion. Minimal dependent changes likely atelectasis. Punctate calcifications dependently in the lung bases may suggest a history of chronic aspiration or minimal fibrosis. Elevation of the hemidiaphragms greater on the left. Liver: Normal morphology. No liver lesion. Patent hepatic vasculature. Biliary: Mild biliary ductal prominence likely a reservoir effect in the post cholecystectomy state. Gallbladder surgically absent. Pancreas: Moderate parenchymal atrophy. Spleen: Normal. Adrenal glands: Normal. Kidneys and ureters: Normal. No hydronephrosis. Bladder: Normal. Pelvic organs: Pessary in place. Uterus surgically absent. No adnexal masses. Ovaries normal. Bowel: Diverticulosis of the proximal to mid sigmoid colon without wall thickening or pericolonic inflammatory change. Mild stool burden throughout normal caliber colon more proximally. The appendix is normal. Large sliding-type hiatal hernia containing a minimal portion of the pancreatic tail. No bowel obstruction. Peritoneal cavity: No free fluid or intraperitoneal gas. Lymph nodes: No enlarged lymph nodes in the abdomen or pelvis. Vasculature: Atherosclerosis of the normal caliber abdominal aorta. IVC patent. Abdominal wall: Normal. Musculoskeletal: Postsurgical changes in the lower lumbar spine from recent laminectomies. Osteopenia. Degenerative changes of the spine. No acute fracture. IMPRESSION: 1. No acute intra-abdominal injury. No acute osseous injury. 2. Chronic findings as above. Electronically signed by: Mo Gresham M.D. 07/08/2019 1:20 PM ECG Data Attestation: I personally reviewed and interpreted this ECG as follows: Indication: weakness Rate (beats per minute): 54 Rhythm: sinus rhythm Findings: + 1st degree AV block, + T-wave inversion (in lateral leads and high lateral leads) and + left axis deviation Comparison ECG Date: from (05/21/2019) Change: the following changes noted (TWI in high lateral leads and LBBB are unchanged from previous EKG) Blood Pressure Blood Pressure Findings: Elevated blood pressure Blood Pressure Disposition: further management by hospitalist CARRIE King Patient is an 89-year-old female who presents the ER with a fall down 3 steps. On exam she is hypersensitive to pain throughout her entire body. Based on this IV was established and rivera scan was obtained. CT head, chest, abdomen pelvis cervical lumbar and thoracic was remarkable for a PE. X-rays of the bilateral l ower extremities no focal fractures. Patient was hypertensive. She was given 2 dose of pain meds. She was unable to sit up. With the diffuse bruising in the recent fall held on any anticoagulation at this time. Did discuss with the hospitalist for observation for persistent pain, trauma and PE. Impression & Plan Fall, Hip pain, Pulmonary embolism Discharge Plan Visit Data Chief Complaint: Fall ED Provider: Addison Dumont Discharge Problem: Fall, Hip pain, Pulmonary embolism Patient Disposition: Being Evaluated by Hospitalist Discharge Instructions Interventions: ED Discharge Assessment Last Done: 07/08/19 15:43 Forms Stand Alone Forms: My [facility] Prescriptions Prescriptions: No Action sennosides [senna] 8.6 mg Tablet 8.6 mg PO DAILY PRN (Reason: Constipation) RF: 0 atorvastatin 20 mg tablet 20 mg PO DAILY RF: 0 isosorbide mononitrate 30 mg tablet extended release 24 hr 30 mg PO DAILY RF: 0 prednisone 5 mg Tablet 5 mg PO DAILY RF: 0 aspirin [Aspirin Low Dose] 81 mg Tablet,Delayed Release (Dr/Ec) 81 mg PO DAILY RF: 0 flaxseed oil 1,000 mg Capsule 1,000 mg PO DAILY RF: 0 lansoprazole 30 mg capsule,delayed release(DR/EC) 30 mg PO BID RF: 0 docusate sodium [Doc-Q-Lace] 100 mg Capsule 100 mg PO BID RF: 0 sitagliptin 100 mg Tablet 100 mg PO DAILY RF: 0 mesalamine [Asacol HD] 800 mg Tablet,Delayed Release (Dr/Ec) 800 mg PO DAILY RF: 0 Fish Oil 900-1,400 mg Capsule,Delayed Release(Dr/Ec) 1 cap PO DAILY RF: 0 Januvia 25 mg tablet 25 mg PO DAILY RF: 0 Premarin 0.625 mg/gram cream 1 applic topical UD RF: 0 amlodipine 5 mg Tablet 5 mg PO DAILY RF: 0 hydrocortisone acetate 25 mg suppository 25 mg [place] DAILY PRN (Reason: constipation) RF: 0 lisinopril 20 mg Tablet 20 mg PO DAILY RF: 0 cholecalciferol (vitamin D3) [Vitamin D3] 2,000 unit Tablet 2,000 unit PO DAILY RF: 0 thyroid (pork) [[place] Thyroid] 30 mg Tablet 30 mg PO SUTUTHSA RF: 0 thyroid (pork) [[place] Thyroid] 60 mg Tablet 60 mg PO MOWEFR RF: 0 Referrals Referrals: Claudy Kingsley MD [Primary Care Provider] - Discharge Problem: Fall Qualifiers: Encounter type: initial encounter Qualified Code(s): W19.XXXA - Unspecified fall, initial encounter The scribe's documentation has been prepared under my direction and personally reviewed by me in its entirety. I confirm that the note above accurately reflects all work, treatment, procedures, and medical decision making performed by me.
[2019-07-08] MEDS ORDERED: OXYCODONE HCL IR 5 MG TAB (IMMEDIATE RELEASE) PO PRN (17:12)
[2019-07-08] MEDS ORDERED: LORazepam 0.5 MG TAB PO PRN (17:12)
[2019-07-08] MEDS ORDERED: HYDROmorphone INJ 0.5 MG/0.5 ML SYR IV PRN (17:12)
[2019-07-08] MEDS ORDERED: TRAMADOL HCL 50 MG TABLET PO PRN (17:12)
[2019-07-08] MEDS ORDERED: ONDANSETRON INJ 2 MG/ML 2 ML VIAL IV PRN (17:12)
[2019-07-08] MEDS: ISOSORBIDE MONO EXTENDED REL 30 MG TABCR PO SCH (18:31)
[2019-07-08] MEDS: LISINOPRIL 20 MG TAB PO SCH (18:31)
[2019-07-08] MEDS: predniSONE 5 MG TAB PO SCH (18:32)
[2019-07-08] MEDS: AMLODIPINE BESYLATE 5 MG TAB PO SCH (18:32)
[2019-07-08] MEDS ORDERED: PANTOprazole 40 MG TAB PO SCH (21:00)
[2019-07-08] MEDS: DOCUSATE SODIUM 100 MG CAP PO SCH (21:11)
--- NOTE | 2019-07-08 22:26 | Magnetic Resonance Report ---
MR brain wo con HISTORY: Trauma closed head injury, vertigo TECHNIQUE: Multiplanar multisequence MRI of the brain was performed without the use of contrast. COMPARISON STUDY: CT 07/08/2019 FINDINGS: Old left cerebellar infarct. Diffusion images show no evidence for an acute ischemic proces s. Findings of moderate to significant chronic small vessel change. Age-related atrophy is present. The ventricular system is midline. IMPRESSION: 1. No evidence for an acute ischemic process. 2. Considerable chronic small vessel change throughout both cerebral hemispheres. 3.. Old left cerebellar infarct. The above report was generated using voice recognition software. It may contain grammatical, syntax or spelling errors. Electronically signed by: Mitesh Gil M.D. 07/08/2019 10:25 PM
--- NOTE | 2019-07-08 22:53 | Magnetic Resonance Report ---
MR angio neck wo/w con HISTORY: Trauma. Mental status change. closed head inj, vertigo, r/o vert dissection TECHNIQUE: Multiaxial CT angiography of the neck was performed IV contrast: None. All measurements w ere calculated based on NASCET criteria. Maximum intensity projection images were also obtained. A dose lowering technique was utilized adhering to the principles of ALARA. COMPARISON STUDY: None. FINDINGS: The aortic arch and proximal great vessels are widely patent. There is no significant sten osis, occlusion, or dissection identified within the bilateral common carotid, internal carotid, or v ertebral arteries. IMPRESSION: No significant stenosis, occlusion, or dissection identified within the carotid or vertebral arteries . The above report was generated using voice recognition software. It may contain grammatical, syntax or spelling errors. Electronically signed by: Mitesh Gil M.D. 07/08/2019 10:51 PM
[2019-07-09 07:09] LABS: Hematocrit (blood only) 35.9 % (37-47); Hemoglobin 11.1 g/dL (12.0-16.0); Mean Corpuscular Hemoglobin 27.8 pg (25-34); Mean Corpuscular Hgb Conc 30.9 g/dL (32-36); Mean Platelet Volume 10.3 fL (7.4-10.4); Platelet Count 229 K/uL (130-400); RDW Standard Deviation 45.9 fL (36.4-46.3); Red Blood Count 3.99 M/uL (4.2-5.4); White Blood Count 9.96 K/uL (4.8-10.8)
--- NOTE | 2019-07-09 07:10 | Ultrasound Report ---
BILATERAL LOWER EXTREMITY VENOUS DOPPLER HISTORY: pulmonary embolism COMPARISON STUDY: None. FINDINGS: There is normal compressibility, flow, and augmentation within the bilateral lower extremit y deep venous systems. IMPRESSION: No DVT within the right or left lower extremity. Electronically signed by: Todd Mckeon M.D. 07/09/2019 7:08 AM
[2019-07-09 07:49] LABS: BUN Creatinine Ratio 17.2 (10-20); Calcium 8.5 mg/dl (8.5-10.1); Creatinine Clr Calc Pharmacy 22.5 ml/min; Est GFR (African American) 38.2; Est GFR (Non-African American) 32.9
[2019-07-09 07:55] LABS: Thyroid Stimulating Hormone 0.833 uIu/ml (0.300-4.500)
[2019-07-09] MEDS: ISOSORBIDE MONO EXTENDED REL 30 MG TABCR PO SCH (08:57)
[2019-07-09] MEDS: ASPIRIN 81 MG ECTAB PO SCH (08:57)
[2019-07-09] MEDS: predniSONE 5 MG TAB PO SCH (08:57)
[2019-07-09] MEDS: ARMOUR THYROID 30 MG TAB PO SCH (08:57)
[2019-07-09] MEDS: DOCUSATE SODIUM 100 MG CAP PO SCH ×2 (08:57→20:44)
[2019-07-09] MEDS: PANTOprazole 40 MG TAB PO SCH ×2 (08:57→16:07)
[2019-07-09] MEDS: ATORVASTATIN 20 MG TAB PO SCH (08:57)
[2019-07-09] MEDS: LISINOPRIL 20 MG TAB PO SCH (09:33)
[2019-07-09] MEDS: AMLODIPINE BESYLATE 5 MG TAB PO SCH (09:33)
[2019-07-09 09:58] LABS: Estimated Average Glucose 169 mg/dl; Hemoglobin A1C 7.5 % (4.5-5.6)
--- NOTE | 2019-07-09 13:35 | Orthopedic Consultation ---
Date of Consultation July 09, 2019 Assessment & Plan (1) Acute pain of left shoulder: x-rays did not show any acute bony pathology, she has exquisite tenderness over the AC joint and subacromial space, discussed that she likely has an AC sprain as well as underlying DJD of the GH joint. it is possible that she has a tear of her cuff but does have 4/5 strength with FF, ABD, IR/ER. at this point, will treat conservatively with sling, RICE, do PT for shoulder and upper extremity. discussed that she should follow up in the office in 6-8 weeks for recheck. (2) AC separation: (3) Arthritis of glenohumeral joint: (4) Contusion of left leg: History of Present Illness Reason for Consultation: left shoulder and left leg pain Attending Physician: Kristopher Snyder MD History of Present Illness Mrs Craven is pleasant 89 year old female that we have been consulted on regarding left shoulder and left leg pain. 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 she states that she was having a nightmare, got out of bed, and Fell from about 3 stairs to the floor. she feels that her leg leg had given out and fell backwards. She struck the back of her head, left chest. Allergies Allergy/AdvReac Type Severity Reaction Status Date / Time technetium-99m Allergy Severe RASH Verified 07/08/19 10:45 calamine Allergy Mild RASH WORSE Verified 07/08/19 10:45 tetanus toxoid, adsorbed Allergy Mild Verified 07/08/19 10:45 cephalexin Allergy Unknown RASH Verified 07/08/19 10:45 meclizine AdvReac Unknown Verified 07/08/19 10:45 Home Medications Home Medications Medication Instructions Recorded Confirmed Type Fish Oil 1 cap PO DAILY 12/12/18 07/08/19 History aspirin [Aspirin Low Dose] 81 mg PO DAILY 12/12/18 07/08/19 History atorvastatin 20 mg PO DAILY 12/12/18 07/08/19 History docusate sodium [Doc-Q-Lace] 100 mg PO BID 12/12/18 07/08/19 History flaxseed oil 1,000 mg PO DAILY 12/12/18 07/08/19 History isosorbide mononitrate 30 mg PO DAILY 12/12/18 07/08/19 History lansoprazole 30 mg PO BID 12/12/18 07/08/19 History mesalamine [Asacol HD] 800 mg PO DAILY 12/12/18 07/08/19 History prednisone 5 mg PO DAILY 12/12/18 07/08/19 History sennosides [senna] 8.6 mg PO DAILY PRN 12/12/18 07/08/19 History amlodipine 5 mg PO DAILY 05/20/19 07/08/19 History cholecalciferol (vitamin D3) 2,000 unit PO DAILY 05/20/19 07/08/19 History [Vitamin D3] hydrocortisone acetate 25 mg [place] DAILY PRN 05/20/19 07/08/19 History lisinopril 20 mg PO DAILY 05/20/19 07/08/19 History thyroid (pork) [[place] Thyroid] 30 mg PO SUTUTHSA 05/20/19 07/08/19 History thyroid (pork) [[place] Thyroid] 60 mg PO MOWEFR 05/20/19 07/08/19 History conjugated estrogens [Premarin] 1 applic TOPICAL UD 07/08/19 07/08/19 History sitagliptin [Januvia] 25 mg PO DAILY 07/08/19 07/08/19 History Patient History Medical History CKD (chronic kidney disease), stage III (Chronic) Ulcerative colitis (Chronic) Hypertension (Chronic) Coronary artery disease (Chronic) NSTEMI 1989, treated medically Hiatal hernia (Chronic) GERD (gastroesophageal reflux disease) (Chronic) Polymyalgia rheumatica (Chronic) Left bundle branch block (Chronic) Hypothyroidism (Chronic) History of cervical cancer (Chronic) NSTEMI (non-ST elevated myocardial infarction) (Inactive) Silent myocardial infarction (Inactive ~1989) Surgical History History of tonsillectomy (Chronic) History of partial hysterectomy (Chronic) H/O hemorrhoidectomy (Chronic) Status post appendectomy (Chronic) Status post cholecystectomy (Chronic) Status post total knee replacement (Chronic) Family History Mother Parkinson disease Father Coronary heart disease Myocardial infarction Social History Preferred Language: Vietnamese Communication Ability: Effective 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 Beliefs That Will Affect Care: None marital status: Current Living Situation: Spouse Other Information That Helps Us Care for You: No Feels Safe at Home: Yes Safety Concerns: Feels Safe At This Time Smoking Status: Never smoker Second Hand Exposure: No ; Hx Alcohol Use: No Hx Substance Use: No Physical Exam Physical Exam: Vital Signs Temp Pulse Pulse Resp BP Pulse Ox 07/09/19 11:59 36.4 C L 50 L 114/83 18 L 07/09/19 08:00 70 07/09/19 07:47 36.8 C 56 L 17 102/63 92 07/09/19 04:02 36.8 C 72 19 99/50 L 92 07/08/19 23:00 36.7 C 52 L 18 109/61 91 07/08/19 19:31 36.4 C L 71 20 110/61 95 07/08/19 17:12 37 C 53 L 18 158/74 H 97 07/08/19 14:54 53 L 16 140/55 L 92 Intake and Output 07/08/19 07/09/19 07/09/19 22:59 06:59 14:59 Intake Total 150 / 1240 90 / 1240 Output Total 500 / 500 Balance -350 / 740 90 / 740 Intake: Oral 150 / 240 90 / 240 Output: Urine 500 / 500 Other: # Unmeasured Voi ds 1 Weight 60 kg Constitutional: WD/WN, vitals as above no acute distress Musculoskeletal: Shoulder: + limited ROM (AROM: FF 90 degrees, ER 20 degrees, PROM FF 120, ER 30), + AC joint abnormality (tender over AC joint, anterior GH joint and subacromial space), + Neer's test positive, + Hawkin's test positive and + Harlan's test positive; no deformity, no effusion, no skin erythema and drop arm test negative Hip: no ecchymosis and log roll test negative Knee: + surgical incision (well healed surgical incision); no skin erythema, no valgus laxity and no varus laxity Results & Data Vital Signs (Past 12 Hours) Vital Signs Temp Pulse Pulse Resp BP Pulse Ox 07/09/19 11:59 36.4 C L 50 L 114/83 18 L 07/09/19 08:00 70 09/18/19 07:47 36.8 C 56 L 17 102/63 92 07/09/19 04:02 36.8 C 72 19 99/50 L 92 Laboratory Results Laboratory Results WBC 9.96 K/uL (4.8-10.8) 07/09/19 06:32 RBC 3.99 M/uL (4.2-5.4) L 07/09/19 06:32 Hgb 11.1 g/dL (12.0-16.0) L 07/09/19 06:32 POC Hgb 13.3 g/dl (12.0-16.0) 07/08/19 11:20 Hct 35.9 % (37-47) L 07/09/19 06:32 POC Hct 39 % (37-47) 07/08/19 11:20 MCV 90.0 fL (80-100) 07/09/19 06:32 MCH 27.8 pg (25-34) 07/09/19 06:32 MCHC 30.9 g/dL (32-36) L 07/09/19 06:32 RDW Std Deviation 45.9 fL (36.4-46.3) 07/09/19 06:32 RDW Coeff of Geovanna 14.0 % (11.5-14.5) 07/09/19 06:32 Plt Count 229 K/uL (130-400) 07/09/19 06:32 MPV 10.3 fL (7.4-10.4) 07/09/19 06:32 Immature Gran % (Auto) 0.4 % 07/08/19 11:18 Neut % (Auto) 61.2 % 07/08/19 11:18 Lymph % (Auto) 27.9 % 07/08/19 11:18 Rock % (Auto) 8.9 % 07/08/19 11:18 Eos % (Auto) 1.2 % 07/08/19 11:18 Baso % (Auto) 0.4 % 07/08/19 11:18 Immature Gran # (Auto) 0.04 K/uL (0.00-0.02) H 07/08/19 11:18 Neut # (Auto) 6.78 K/uL (1.4-6.5) H 07/08/19 11:18 Lymph # (Auto) 3.09 K/uL (1.2-3.4) 07/08/19 11:18 Rock # (Auto) 0.99 K/uL (0.11-0.59) H 07/08/19 11:18 Eos # (Auto) 0.13 K/uL (0-0.5) 07/08/19 11:18 Baso # (Auto) 0.04 K/uL (0-0.2) 07/08/19 11:18 ESR 22 mm/hr (0-21) H 07/09/19 06:32 PT 10.3 Seconds (9.0-12.0) 07/08/19 11:10 INR 1.0 (0.9-1.1) 07/08/19 11:10 POC Sodium 143 mEq/L (135-144) 07/08/19 11:20 Sodium 140 mmol/L (136-145) 07/09/19 06:32 POC Potassium 4.1 mEq/L (3.3-5.0) 07/08/19 11:20 Potassium 5.0 mmol/L (3.5-5.1) D 07/09/19 06:32 POC Chloride 108 mEq/L (101-112) 07/08/19 11:20 Chloride 108 mmol/L (98-107) H 07/09/19 06:32 Carbon Dioxide 25 mmol/L (21-32) 07/09/19 06:32 POC Total CO2 21 mEq/l (24-31) L 07/08/19 11:20 Anion Gap 7.0 (3-11) 07/09/19 06:32 POC Anion Gap 19.0 mmol/L (16-25) 07/08/19 11:20 POC BUN 27 mg/dl (7-18) H 07/08/19 11:20 BUN 24 mg/dl (7-18) H 07/09/19 06:32 Creatinine 1.41 mg/dl (0.6-1.2) H 07/09/19 06:32 POC Creatinine 1.4 mg/dl (0.6-1.3) H 07/08/19 11:20 Est Cr Clr Drug Dosing 22.5 ml/min 07/09/19 06:32 Est GFR ( Amer) 38.2 07/09/19 06:32 Est GFR (Non-Af Amer) 32.9 07/09/19 06:32 BUN/Creatinine Ratio 17.2 (10-20) 07/09/19 06:32 Glucose 104 mg/dl (70-99) H 07/09/19 06:32 POC Glucose 143 (70-99) H 07/09/19 11:25 POC Glucose (other) 117 mg/dl (70-99) H 07/08/19 11:20 Estimat Average Glucose 169 mg/dl 07/09/19 06:32 Hemoglobin A1c 7.5 % (4.5-5.6) H 07/09/19 06:32 Calcium 8.5 mg/dl (8.5-10.1) 07/09/19 06:32 POC Ioniz Calcium Kristina 1.16 mmol/l (1.12-1.32) 07/08/19 11:20 Total Bilirubin 0.3 mg/dl (0.2-1) 07/08/19 11:11 AST 17 U/L (15-37) 07/08/19 11:11 ALT 21 U/L (12-78) 07/08/19 11:11 Alkaline Phosphatase 76 U/L (45-117) 07/08/19 11:11 Troponin I < 0.015 ng/ml (0-0.045) 07/08/19 11:11 Total Protein 7.2 gm/dl (6.4-8.2) 07/08/19 11:11 Albumin 3.7 gm/dl (3.4-5.0) 07/08/19 11:11 Globulin 3.5 gm/dl (2.5-4.0) 07/08/19 11:11 Albumin/Globulin Ratio 1.1 (0.9-2) 07/08/19 11:11 Triglycerides 165 mg/dl (0-150) H 07/09/19 06:32 Cholesterol 149 mg/dl (0-200) 07/09/19 06:32 LDL Cholesterol, Calc 51 mg/dl 07/09/19 06:32 VLDL Cholesterol, Calc 33 mg/dl 07/09/19 06:32 HDL Cholesterol 65 mg/dl 07/09/19 06:32 Cholesterol/HDL Ratio 2 07/09/19 06:32 Vitamin B12 320 pg/ml (211-911) 07/09/19 06:32 25-OH Vitamin D Total 29.3 ng/ml (30-100) L 07/09/19 06:32 TSH 0.833 uIu/ml (0.300-4.500) 07/09/19 06:32 Urine Color Yellow 07/08/19 Unknown Urine Appearance Clear (Clear) 07/08/19 Unknown Urine pH 7.0 (4.5-7.5) 07/08/19 Unknown Ur Specific [place] 1.023 (1.000-1.030) 07/08/19 Unknown Urine Protein Negative (Negative) 07/08/19 Unknown Urine Glucose (UA) Negative (Negative) 07/08/19 Unknown Urine Ketones Negative (Negative) 07/08/19 Unknown Urine Blood Negative (Negative) 07/08/19 Unknown Urine Nitrite Negative (Negative) 07/08/19 Unknown Urine Bilirubin Negative (Negative) 07/08/19 Unknown Urine Urobilinogen Negative (Negative) 07/08/19 Unknown Ur Leukocyte Esterase 1+ (Negative) H 07/08/19 Unknown Urine WBC (Auto) 1-5 /hpf (0-5) 07/08/19 Unknown Urine RBC (Auto) 0-4 /hpf (0-4) 07/08/19 Unknown U Hyaline Cast (Auto) 0 /lpf (0-5) 07/08/19 Unknown U Epithel Cells (Auto) 20-30 /lpf (0-5) H 07/08/19 Unknown Urine Bacteria (Auto) Negative (Negative) 07/08/19 Unknown Diagnostic Findings XR shoulder LT min 2V routine CLINICAL HISTORY: Left shoulder pain following fall. COMPARISON: Chest CT performed earlier today. FINDINGS: Alignment of the left shoulder is in anatomic. No acute fracture is identified. Left shoulder osteoarthritis is noted. IMPRESSION: No acute fracture or dislocation within the left shoulder. XR femur RT 2V routine CLINICAL HISTORY: Right leg pain following fall. COMPARISON: CT of the abdomen and pelvis May 20, 2019. FINDINGS: No acute fracture of the right femur is identified. Alignment of the right hip and knee is anatomic. There is moderate osteoarthritis of the right hip and mild to moderate medial compartment osteoarthritis of the right knee. IMPRESSION: No acute fracture within the right femur. XR femur LT 2V routine CLINICAL HISTORY: 89 years-old Female presenting with fall diffuse pain. TECHNIQUE: Frontal and lateral views of the left femur were obtained. COMPARISON: Correlation made to knee radiographs and hip radiographs from 05/20/2019. FINDINGS: Left hip joint congruent. No femoral neck fracture. Underlying osteopenia. No malalignment or advanced degenerative change of the hip joint. Partially visualized total left knee arthroplasty. No periprosthetic fracture or lucency. Atherosclerotic calcifications. IMPRESSION: No acute osseous injury of the left femur.
--- NOTE | 2019-07-09 13:37 | Orthopedic Consultation ---
Date of Consultation July 09, 2019 Assessment & Plan (1) Back pain: At this time she may require rehab upon discharge. I do not do not see any issues regarding her lumbar spine or lumbar surgery. Present on Admission?: Yes History of Present Illness Reason for Consultation: Status post fall Attending Physician: Kristopher Snyder MD History of Present Illness This is a 89-year-old female well-known to me status post lumbar decompression fusion. Unfortunately she had a fall yesterday while at home. She presents with multiple complaints. She is complaining that this afternoon mostly of her left shoulder pain she has some bilateral knee pain secondary to falling on her knees. She denies any clear radicular complaints. She states overall her back pain is well controlled today. Allergies Allergy/AdvReac Type Severity Reaction Status Date / Time technetium-99m Allergy Severe RASH Verified 07/08/19 10:45 calamine Allergy Mild RASH WORSE Verified 07/08/19 10:45 tetanus toxoid, adsorbed Allergy Mild Verified 07/08/19 10:45 cephalexin Allergy Unknown RASH Verified 07/08/19 10:45 meclizine AdvReac Unknown Verified 07/08/19 10:45 Home Medications Home Medications Medication Instructions Recorded Confirmed Type Fish Oil 1 cap PO DAILY 12/12/18 07/08/19 History aspirin [Aspirin Low Dose] 81 mg PO DAILY 12/12/18 07/08/19 History atorvastatin 20 mg PO DAILY 12/12/18 07/08/19 History docusate sodium [Doc-Q-Lace] 100 mg PO BID 12/12/18 07/08/19 History flaxseed oil 1,000 mg PO DAILY 12/12/18 07/08/19 History isosorbide mononitrate 30 mg PO DAILY 12/12/18 07/08/19 History lansoprazole 30 mg PO BID 12/12/18 07/08/19 History mesalamine [Asacol HD] 800 mg PO DAILY 12/12/18 07/08/19 History prednisone 5 mg PO DAILY 12/12/18 07/08/19 History sennosides [senna] 8.6 mg PO DAILY PRN 12/12/18 07/08/19 History amlodipine 5 mg PO DAILY 05/20/19 07/08/19 History cholecalciferol (vitamin D3) 2,000 unit PO DAILY 05/20/19 07/08/19 History [Vitamin D3] hydrocortisone acetate 25 mg [place] DAILY PRN 05/20/19 07/08/19 History lisinopril 20 mg PO DAILY 05/20/19 07/08/19 History thyroid (pork) [[place] Thyroid] 30 mg PO SUTUTHSA 05/20/19 07/08/19 History thyroid (pork) [[place] Thyroid] 60 mg PO MOWEFR 05/20/19 07/08/19 History conjugated estrogens [Premarin] 1 applic TOPICAL UD 07/08/19 07/08/19 History sitagliptin [Januvia] 25 mg PO DAILY 07/08/19 07/08/19 History Patient History Medical History CKD (chronic kidney disease), stage III (Chronic) Ulcerative colitis (Chronic) Hypertension (Chronic) Coronary artery disease (Chronic) NSTEMI 1989, treated medically Hiatal hernia (Chronic) GERD (gastroesophageal reflux disease) (Chronic) Polymyalgia rheumatica (Chronic) Left bundle branch block (Chronic) Hypothyroidism (Chronic) History of cervical cancer (Chronic) NSTEMI (non-ST elevated myocardial infarction) (Inactive) Silent myocardial infarction (Inactive ~1989) Surgical History History of tonsillectomy (Chronic) History of partial hysterectomy (Chronic) H/O hemorrhoidectomy (Chronic) Status post appendectomy (Chronic) Status post cholecystectomy (Chronic) Status post total knee replacement (Chronic) Family History Mother Parkinson disease Father Coronary heart disease Myocardial infarction Social History Preferred Language: [place]araguan Communication Ability: Effective 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 She has good strength testing bilateral lower extremities with some deficits to hip flexion on the left. She does demonstrate pain to palpation of the left knee along the joint line. Incision is healed well. There is no erythema no drainage she is nontender to palpation. Results & Data Vital Signs (Past 12 Hours) Vital Signs Temp Pulse Pulse Resp BP Pulse Ox 07/09/19 11:59 36.4 C L 50 L 114/83 18 L 07/09/19 08:00 70 07/09/19 07:47 36.8 C 56 L 17 102/63 92 07/09/19 04:02 36.8 C 72 19 99/50 L 92
[2019-07-09] MEDS ORDERED: BISACODYL 10 MG SUPP PR STA (15:54)
--- NOTE | 2019-07-09 16:10 | Hospitalist Progress Note ---
Date of Service July 09, 2019 Assessment & Plan (1) Fall: -This is a patient who as per the history and physical fell down few steps after suddenly getting out of bed with a nightmare, apparently in a confused state. (2) Vertigo: -CT head: No acute intracranial abnormality. Atrophy and microvascular ischemic changes -Brain MRI: No evidence for an acute ischemic process; Considerable chronic small vessel change throughout both cerebral hemispheres; Old left cerebellar infarct -Neck MRA: No significant stenosis, occlusion, or dissection identified within the carotid or vertebral arterie -vertigo symptoms appear to be self resolving (3) Pulmonary embolism: -Chest CT with contrast: single small subsegmental pulmonary embolus seen within the left upper lobe. This is age indeterminate. Otherwise, no acute traumatic process within the chest. Large hiatus hernia, unchanged. -Venous ultrasound: No DVT within the right or left lower extremity -as per admitting physician, there is No need to anticoagulate if no evidence of acute DVT -agree at this time to monitor with systemic full dose anticoagulation (4) Chest wall pain: -Left chest wall pain/tenderness. -No apparent rib fractures per CT. -Analgesics for pain control, incentive spirometry. (5) Shoulder pain, left: -Acute pain of left shoulder: -as per orthopedics evaluation 07/09/19: "x-rays did not show any acute bony pathology, she has exquisite tenderness over the AC joint and subacromial space, discussed that she likely has an AC sprain as well as underlying DJD of the GH joint. it is possible that she has a tear of her cuff but does have 4/5 strength with FF, ABD, IR/ER. at this point, will treat conservatively with KATHARINE torres, do PT for shoulder and upper extremity. discussed that she should follow up in the office in 6-8 weeks for recheck." (6) Pain of left lower extremity: -No apparent fractures per plain films. -patient was seen initially by PT/OT on 07/09/19 but declined evaluation due to discomfort -Analgesics for pain control, awaiting re-assessment by PT/OT (7) Back pain: -Status post recent lumbar decompression fusion surgery Dr. Grimes in the past -No apparent fracture or hardware failure per CT. -as per Dr. Grimes, there are no issues regarding her lumbar spine or lumbar surgery -Analgesics for pain control (8) Coronary artery disease: -No anginal symptoms. Troponin normal. EKG shows sinus bradycardia with chronic left bundle branch block. Continue aspirin, amlodipine, statin. (9) Hypertension: -Continue amlodipine, lisinopril, isosorbide mononitrate with hold parameters. (10) CKD (chronic kidney disease), stage III: -creatinine at baseline (11) GERD (gastroesophageal reflux disease): Continue PPI. (12) Ulcerative colitis: Quiescent. Continue prednisone and mesalamine. (13) Chronic steroid use: -on chronic prednisone because of polymyalgia rheumatica / ulcerative colitis (14) Polymyalgia rheumatica: -ESR is 22 which is near high normal reference lab ranges -Continue prednisone 5 mg daily (15) DM type 2 (diabetes mellitus, type 2): Random glucose in ED 106. Hold oral agents during hospital stay. Check hemoglobin A1c. Basal/bolus insulin per protocol. (16) Weight loss: -patient reports 35 lb wt loss over past year. -No specific symptoms or radiographic abnormalities to suggest malignancy on recent imaging -start BOOST supplements with meals -senior bioinformatics specialist consult (17) Hypothyroidism: -TSH 0.833 which is euthyroid ranges -Continue home dose thyroid supplements (18) DVT prophylaxis: -No anticoagulants at this time because of fall and multiple injuries; SCDs, encourage ambulation if tolerated (19) Discharge planning issues: -Discharge disposition to be determined. May need skilled care or inpt rehab. Consult Case Management. Medical follow-up with Dr. Kingsley. Subjective patient reports left hip pain that is worse with leg elevation but there is no apparent bruising of fluctuance of the left hip area. there is fluctuance near right elbow but no skin discoloration suggestive of a hematoma, possible that there could be an IV infiltration of right arm versus right elbow bruise. patient was seen initially by PT/OT on 07/09/19 but declined evaluation due to discomfort. patient has not been in distress. breathing on room air. she has not made bowel movement and requested suppository. no acute chest pain or acute abdomen pain reported. telemetry shows bradycardia. blood pressures are stable. patient feels initial vertigo symptoms are better. patient answering questions appropriately. denies headache Physical Exam Constitutional: + thin Eyes: PERRL, conjunctivae normal, anicteric sclerae EOM intact bilaterally ENMT: external ear and nose normal, oropharynx normal Neck: normal visual inspection Respiratory: normal respiratory effort, lungs clear to auscultation Gastrointestinal (Abdomen): normal bowel sounds, soft, nontender, no hepatosplenomegaly Musculoskeletal: patient reports left hip pain that is worse with leg elevation but there is no apparent bruising of fluctuance of the left hip area. there is fluctuance near right elbow but no skin discoloration suggestive of a hematoma, possible that there could be an IV infiltration of right arm versus right elbow bruise Neurologic: PERRL, EOMI, accommodation nl, no face palsy, no dysarthria Psychiatric: A+Ox3, euthymic affect Results & Data Vital Signs (Past 12 Hours) Vital Signs Temp Pulse Pulse Resp BP Pulse Ox 07/09/19 15:46 36.5 C 81 20 116/67 96 07/09/19 11:59 36.4 C L 50 L 114/83 18 L 07/09/19 08:00 70 07/09/19 07:47 36.8 C 56 L 17 102/63 92 (1) Fall Encounter type: initial encounter Qualified Code(s): W19.XXXA - Unspecified fall, initial encounter
[2019-07-09] MEDS ORDERED: GLUCAGON FOR INJ 1 MG VIAL IM PRN (22:00)
[2019-07-09] MEDS ORDERED: DEXTROSE 50% 50 ML SYRINGE IV PRN (22:00)
[2019-07-09] MEDS ORDERED: GLUCOSE 10 TABS/TUBE PO PRN (22:00)
[2019-07-09] MEDS ORDERED: GLUCOSE 40% GEL 15 GM TUBE PO PRN (22:00)
[2019-07-09] MEDS ORDERED: CARBOHYDRATES FOR HYPOGLYCEMIA PO PRN (22:00)
[2019-07-09] MEDS: INSULIN ASPART 100 UNITS/ML 3 ML PEN SC SCH (22:15)
[2019-07-10 06:57] LABS: BUN Creatinine Ratio 20.3 (10-20); Calcium 8.6 mg/dl (8.5-10.1); Creatinine Clr Calc Pharmacy 19.2 ml/min; Est GFR (African American) 31.1; Est GFR (Non-African American) 26.8; Potassium 4.6 mmol/L (3.5-5.1)
[2019-07-10 07:00] LABS: Bilirubin,Total 0.3 mg/dl (0.2-1); Globulin 3.1 gm/dl (2.5-4.0); Total Protein 6.1 gm/dl (6.4-8.2)
[2019-07-10] MEDS: AMLODIPINE BESYLATE 5 MG TAB PO SCH (08:03)
[2019-07-10] MEDS: PANTOprazole 40 MG TAB PO SCH ×2 (08:03→17:24)
[2019-07-10] MEDS: predniSONE 5 MG TAB PO SCH (08:03)
[2019-07-10] MEDS: DOCUSATE SODIUM 100 MG CAP PO SCH ×2 (08:04→20:26)
[2019-07-10] MEDS: ASPIRIN 81 MG ECTAB PO SCH (08:04)
[2019-07-10] MEDS: LISINOPRIL 20 MG TAB PO SCH (08:04)
[2019-07-10] MEDS: ISOSORBIDE MONO EXTENDED REL 30 MG TABCR PO SCH (08:04)
[2019-07-10] MEDS: ATORVASTATIN 20 MG TAB PO SCH (08:04)
[2019-07-10] MEDS: INSULIN ASPART 100 UNITS/ML 3 ML PEN SC SCH ×4 (08:40→21:16)
[2019-07-10] MEDS ORDERED: ARMOUR THYROID 30 MG TAB PO SCH (09:00)
[2019-07-10] MEDS ORDERED: ERGOCALCIFEROL 50,000 UNITS CAP PO ONE (12:00)
[2019-07-10] MEDS: CALCIUM 600MG + VIT D 400 IU TAB PO SCH (12:27)
[2019-07-10] MEDS: MULTIVITAMIN TAB PO SCH (12:27)
[2019-07-10] MEDS: ACETAMINOPHEN 325 MG TAB PO PRN (14:28)
--- NOTE | 2019-07-10 15:16 | Hospitalist Progress Note ---
Date of Service July 10, 2019 Assessment & Plan (1) Fall: -This is a patient who as per the history and physical fell down few steps after suddenly getting out of bed with a nightmare, apparently in a confused state. (2) Vertigo: -CT head: No acute intracranial abnormality. Atrophy and microvascular ischemic changes -Brain MRI: No evidence for an acute ischemic process; Considerable chronic small vessel change throughout both cerebral hemispheres; Old left cerebellar infarct -Neck MRA: No significant stenosis, occlusion, or dissection identified within the carotid or vertebral arteries -vertigo symptoms does not appear to occur now at rest, patient denies vertigo during walking with therapist, reports sensations more with changing positions such as standing up or sitting (3) Pulmonary embolism: -Chest CT with contrast: single small subsegmental pulmonary embolus seen within the left upper lobe. This is age indeterminate. Otherwise, no acute traumatic process within the chest. Large hiatus hernia, unchanged. -Venous ultrasound: No DVT within the right or left lower extremity -as per admitting physician, there is No need to anticoagulate if no evidence of acute DVT -agree at this time to monitor with systemic full dose anticoagulation (4) Chest wall pain: -Left chest wall pain/tenderness. -No apparent rib fractures per CT. -Analgesics for pain control, incentive spirometry. (5) Shoulder pain, left: -Acute pain of left shoulder: -as per orthopedics evaluation 07/09/19: "x-rays did not show any acute bony pathology, she has exquisite tenderness over the AC joint and subacromial space, discussed that she likely has an AC sprain as well as underlying DJD of the GH joint. it is possible that she has a tear of her cuff but does have 4/5 strength with FF, ABD, IR/ER. at this point, will treat conservatively with KATHARINE torres, do PT for shoulder and upper extremity. discussed that she should follow up in the office in 6-8 weeks for recheck." (6) Pain of left lower extremity: -No apparent fractures per plain films. -patient was seen initially by PT/OT on 07/09/19 but declined evaluation due to discomfort -Analgesics for pain control, awaiting re-assessment by PT/OT (7) Back pain: -Status post recent lumbar decompression fusion surgery Dr. Grimes in the past -No apparent fracture or hardware failure per CT. -as per Dr. Grimes, there are no issues regarding her lumbar spine or lumbar surgery -Analgesics for pain control (8) Coronary artery disease: -No anginal symptoms. Troponin normal. EKG shows sinus bradycardia with chronic left bundle branch block. Continue aspirin, amlodipine, statin. (9) Hypertension: -Continue amlodipine, lisinopril, isosorbide mononitrate (10) CKD (chronic kidney disease), stage III: -creatinine at baseline which is around 1.5 to under 1.7 according to hospital lab records (11) GERD (gastroesophageal reflux disease): -Continue PPI. (12) Ulcerative colitis: -Continue prednisone and mesalamine. (13) Chronic steroid use: -on chronic prednisone because of polymyalgia rheumatica / ulcerative colitis (14) Polymyalgia rheumatica: -ESR is 22 which is near high normal reference lab ranges -Continue prednisone 5 mg daily (15) DM type 2 (diabetes mellitus, type 2): -HbA1c 7.5 -hold home dose Januvia for now -Basal/bolus insulin per protocol. (16) Weight loss: Severe protein-calorie Malnutrition patient reports 35 lb wt loss over past year. -No specific symptoms or radiographic abnormalities to suggest malignancy on recent imaging -internet manager consult recommend: 50,000 IU Vitamin D weekly x 8 weeks for repletion, followed by 2,000 IU daily thereafter; multivitamin and calcium supplement. Diet changed to CHO Consistent and oral nutrition supplements BID with meals . (17) Hypothyroidism: -TSH 0.833 which is euthyroid ranges -Continue home dose thyroid supplements (18) DVT prophylaxis: -SCDs, encourage ambulation as tolerated (19) Discharge planning issues: Patient's son Tina ([phone]; [phone] -Case management has been able to coordinate patient to be able to continue physical therapy at [facility], patient does not feel ready today and plans for tomorrow -Patient's son Tina also present for hospital discussions between hospitalist, rn case mgr, and liaison from [facility] Subjective vertigo symptoms does not appear to occur now at rest, patient denies vertigo during walking with therapist, reports sensations more with changing positions such as standing up or sitting. Patient able to do some physical therapy. -Case management has been able to coordinate patient to be able to continue physical therapy at [facility], patient does not feel ready today and plans for tomorrow. Patient's son Tina also present for hospital discussions between hospitalist, rn case mgr, and liaison from [facility] no chest pain, no shortness of breath, no abdomen pain, no vomiting, no other complaints other than mentioned above. musculoskeletal pain appears better controlled today Physical Exam Constitutional: + thin Eyes: PERRL, conjunctivae normal, anicteric sclerae EOM intact bilaterally ENMT: external ear and nose normal, oropharynx normal Neck: normal visual inspection Respiratory: normal respiratory effort, lungs clear to auscultation Cardiovascular: Rate/Rhythm: + bradycardic Gastrointestinal (Abdomen): normal bowel sounds, soft, nontender, no hepatosplenomegaly Musculoskeletal: Head/Neck/Chest: normocephalic and head atraumatic Neurologic: PERRL, EOMI, accommodation nl, no face palsy, no dysarthria Psychiatric: A+Ox3, euthymic affect Results & Data Vital Signs (Past 12 Hours) Vital Signs Temp Pulse Pulse Resp BP BP Pulse Ox 07/10/19 11:06 36.4 C L 56 L 18 107/65 94 07/10/19 08:22 36.6 C 54 L 19 145/60 H 94 07/10/19 08:00 74 (1) Fall Encounter type: initial encounter Qualified Code(s): W19.XXXA - Unspecified fall, initial encounter
[2019-07-10] MEDS: MESALAMINE 400 MG CAPDR PO SCH (20:26)
[2019-07-11] MEDS: INSULIN ASPART 100 UNITS/ML 3 ML PEN SC SCH ×2 (08:47→12:05)
[2019-07-11] MEDS: ATORVASTATIN 20 MG TAB PO SCH (08:52)
[2019-07-11] MEDS: predniSONE 5 MG TAB PO SCH (08:52)
[2019-07-11] MEDS: ARMOUR THYROID 30 MG TAB PO SCH (08:52)
[2019-07-11] MEDS: DOCUSATE SODIUM 100 MG CAP PO SCH (08:52)
[2019-07-11] MEDS: CALCIUM 600MG + VIT D 400 IU TAB PO SCH (08:53)
[2019-07-11] MEDS: MULTIVITAMIN TAB PO SCH (08:53)
[2019-07-11] MEDS: MESALAMINE 400 MG CAPDR PO SCH ×2 (08:53→13:29)
[2019-07-11] MEDS: AMLODIPINE BESYLATE 5 MG TAB PO SCH (08:53)
[2019-07-11] MEDS: LISINOPRIL 20 MG TAB PO SCH (08:53)
[2019-07-11] MEDS: ASPIRIN 81 MG ECTAB PO SCH (08:53)
[2019-07-11] MEDS: PANTOprazole 40 MG TAB PO SCH (08:53)
[2019-07-11] MEDS: ISOSORBIDE MONO EXTENDED REL 30 MG TABCR PO SCH (08:53)
--- NOTE | 2019-07-11 10:05 | Hospitalist Progress Note ---
Date of Service July 11, 2019 Assessment & Plan (1) Fall: Musculoskeletal Pain as documented below -This is a patient who as per the history and physical fell down few steps after suddenly getting out of bed with a nightmare, apparently in a confused state. (2) Vertigo: -CT head: No acute intracranial abnormality. Atrophy and microvascular ischemic changes -Brain MRI: No evidence for an acute ischemic process; Considerable chronic small vessel change throughout both cerebral hemispheres; Old left cerebellar infarct -Neck MRA: No significant stenosis, occlusion, or dissection identified within the carotid or vertebral arteries -vertigo symptoms does not appear to occur now at rest, patient denied vertigo during walking with therapist, reports sensations more with changing positions such as standing up or sitting -updated patient and patient's son about old cerebellar infarct and that this is not likely contributory to current vertigo symptoms (3) Pulmonary embolism: -Chest CT with contrast: single small subsegmental pulmonary embolus seen within the left upper lobe. This is age indeterminate. Otherwise, no acute traumatic process within the chest. Large hiatus hernia, unchanged. -Venous ultrasound: No DVT within the right or left lower extremity -as per admitting physician, there is No need to anticoagulate if no evidence of acute DVT -agree for patient not to be on with systemic full dose anticoagulation as there is no lower extremity source and because patient respiratory stable and may be a potential fall risk and potential bleeding risk if on blood thinngers -have updated patient and patient's son about these findings and they agree to the plan (4) Chest wall pain: -Left chest wall pain/tenderness. -No apparent rib fractures per CT. -Analgesics for pain control, incentive spirometry. (5) Shoulder pain, left: -Acute pain of left shoulder: -as per orthopedics evaluation 07/09/19: "x-rays did not show any acute bony pathology, she has exquisite tenderness over the AC joint and subacromial space, discussed that she likely has an AC sprain as well as underlying DJD of the GH joint. it is possible that she has a tear of her cuff but does have 4/5 strength with FF, ABD, IR/ER. at this point, will treat conservatively with sling, RICE, do PT for shoulder and upper extremity. discussed that she should follow up in the office in 6-8 weeks for recheck." -Patient should follow up with Dr. Grimes or his colleagues at [facility] [address] [place] [address], [place] [address] (6) Pain of left lower extremity: -No apparent fractures per plain films. -patient was seen initially by PT/OT on 07/09/19 but declined evaluation due to discomfort -Analgesics for pain control (7) Back pain: -Status post recent lumbar decompression fusion surgery Dr. Grimes in the past -No apparent fracture or hardware failure per CT. -as per Dr. Grimes, there are no issues regarding her lumbar spine or lumbar surgery -Analgesics for pain control (8) Coronary artery disease: -No anginal symptoms. Troponin normal. EKG shows sinus bradycardia with chronic left bundle branch block. Continue aspirin, amlodipine, statin. (9) Hypertension: -Continue amlodipine, lisinopril, isosorbide mononitrate (10) CKD (chronic kidney disease), stage III: -creatinine at baseline which is around 1.5 to under 1.7 according to hospital lab records (11) GERD (gastroesophageal reflux disease): -Continue PPI. (12) Ulcerative colitis: -Continue prednisone and mesalamine. (13) Chronic steroid use: -on chronic prednisone because of polymyalgia rheumatica / ulcerative colitis (14) Polymyalgia rheumatica: -ESR is 22 which is near high normal reference lab ranges -Continue prednisone 5 mg daily (15) DM type 2 (diabetes mellitus, type 2): -HbA1c 7.5 -patient may resume home dose Januvia on discharge (16) Weight loss: Severe protein-calorie Malnutrition patient reports 35 lb wt loss over past year. -No specific symptoms or radiographic abnormalities to suggest malignancy on recent imaging -rag inspector consult recommend: 50,000 IU Vitamin D weekly x 8 weeks for repletion, followed by 2,000 IU daily thereafter; multivitamin and calcium supplement. Diet changed to CHO Consistent and oral nutrition supplements BID wi th meals -50,000 units Vitamin D given on 07/10/19 (17) Hypothyroidism: -TSH 0.833 which is euthyroid ranges -Continue home dose thyroid supplements (18) DVT prophylaxis: -SCDs, encourage ambulation as tolerated (19) Discharge planning issues: Patient's son Tina ([phone]; [phone]) -Case management has been able to coordinate patient to be able to continue physical therapy at [facility], patient does not feel ready today and plans for tomorrow -Patient's son Tina also present for hospital discussions between hospitalist, corrections caseworker, and liaison from [facility] Discharge to [facility] Discharge Diagnosis: Fall, Musculoskeletal Pain, Pulmonary embolism without acute cor pulmonale, Diabetes Mellitus Type 2, Polymyalgia rheumatica, 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 she reports that her vertigo is better. denies acute pain at time of exam. able to eat food. no vomiting. no chest pain. no shortness of breath.She feels ready to go to physical rehabilitation at [facility] today Physical Exam Constitutional: + thin Eyes: PERRL, conjunctivae normal, anicteric sclerae EOM intact bilaterally ENMT: external ear and nose normal, oropharynx normal Neck: normal visual inspection Respiratory: normal respiratory effort, lungs clear to auscultation Cardiovascular: Rate/Rhythm: + bradycardic Gastrointestinal (Abdomen): normal bowel sounds, soft, nontender, no hepatosplenomegaly Musculoskeletal: Head/Neck/Chest: normocephalic and head atraumatic Neurologic: PERRL, EOMI, accommodation nl, no face palsy, no dysarthria Psychiatric: A+Ox3, euthymic affect Results & Data Vital Signs (Past 12 Hours) Vital Signs Temp Pulse Resp BP BP Pulse Ox 07/11/19 07:34 36.5 C 55 L 20 146/66 H 96 07/11/19 03:27 36.4 C L 52 L 16 138/72 93 07/11/19 00:00 36.4 C L 70 16 150/74 H 95 (1) Fall Encounter type: initial encounter Qualified Code(s): W19.XXXA - Unspecified fall, initial encounter
[2019-07-11] MEDS: ACETAMINOPHEN 325 MG TAB PO PRN (10:12)
--- NOTE | 2019-07-11 10:16 | Discharge Summary ---
Date of Service July 11, 2019 Admission HPI Per Admitting Provider 89-year-old female followed by Dr. Kingsley in [place]. History of coronary artery disease, hypertension, ulcerative colitis, diabetes mellitus type 2, hypothyroidism, PMR, and other problems. 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 Does not get much rest and has lost about 35 pounds over the last year. This morning she was having a nightmare, got out of bed, and start climbing stairs. Fell from about 3 stairs to the floor. She does not recall the exact circumstances of the fall. Uncertain whether she lost her footing or not. No apparent syncope, lightheadedness, chest pain, palpitations, dyspnea, focal neurologic symptoms. She struck the back of her head, left chest, right knee. Experiencing severe left shoulder pain. Notes vertigo when she sits up; does not recall any vertigo prior to the fall. Admission Exam Per Admitting Provider Constitutional: WD/WN, vitals as above no acute distress appears to be uncomfortable Eyes: PERRL, conjunctivae normal, anicteric sclerae ENMT: external ear and nose normal, oropharynx normal Neck: trachea midline, no thyromegaly Respiratory: normal respiratory effort, lungs clear to auscultation Cardiovascular: Rate/Rhythm: regular rate Heart Sounds: no gallop, no murmur and no cardiac rub Vessels: no JVD Extremities: normal capillary refill and + edema (trace pretibial); no calf tenderness Chest (Breasts): Additional Comments: left chest wall tenderness Gastrointestinal (Abdomen): normal bowel sounds, soft, nontender, no hep atosplenomegaly Musculoskeletal: Head/Neck/Chest: neck supple; + evidence of head trauma (contusion left occiput) Extremities: no cyanosis and no clubbing pain and limited ROM left shoulder; pain left knee with leg raising; small effusion right knee Skin: no rashes, warm and dry abrasions right leg Neurologic: PERRL, EOMI no facial palsy no dysarthria or aphasia mild weakness LLE; left foot drop Psychiatric: Orientation: alert and oriented x 3 Affect: + depressed affect and + anxious affect Lymphatic: no cervical lymphadenopathy Principal Diagnosis Fall, Musculoskeletal Pain, Pulmonary embolism without acute cor pulmonale, Diabetes Mellitus Type 2, Polymyalgia rheumatica, residential current use of steroids, CKD (chronic kidney disease) stage III, Hypertension, Old Cerebellar infarct, weigh loss, severe protein calorie malnutrition Discharge Exam Constitutional + thin Eyes PERRL, conjunctivae normal, anicteric sclerae EOM intact bilaterally ENMT external ear and nose normal, oropharynx normal Neck normal visual inspection Respiratory normal respiratory effort, lungs clear to auscultation Cardiovascular Rate/Rhythm: + bradycardic Gastrointestinal (Abdomen) normal bowel sounds, soft, nontender, no hepatosplenomegaly Musculoskeletal Head/Neck/Chest: normocephalic and head atraumatic (head contusion resolving) Neurologic PERRL, EOMI, accommodation nl, no face palsy, no dysarthria Psychiatric A+Ox3, euthymic affect Discharge Data Allergies Allergy/AdvReac Type Severity Reaction Status Date / Time technetium-99m Allergy Severe RASH Verified 07/08/19 10:45 calamine Allergy Mild RASH WORSE Verified 07/08/19 10:45 tetanus toxoid, adsorbed Allergy Mild Verified 07/08/19 10:45 cephalexin Allergy Unknown RASH Verified 07/08/19 10:45 meclizine AdvReac Unknown Verified 07/08/19 10:45 Consultations 07/08/19 14:32 ED Decision to Admit Stat 07/08/19 17:12 Consult Case Management - Discharge Planning Routine 07/08/19 17:16 Consult Orthopedic Surgery Routine 07/08/19 17:17 Consult Orthopedic Surgery Routine Ordered Studies 07/08/19 10:34 CT abd pelvis IV con only Stat CT cervical spine wo con Stat CT chest w con Stat CT head/brain wo con Stat CT lumbar spine wo con Stat CT thoracic spine wo con Stat 07/08/19 17:44 MR angio neck wo/w con Urgent MR brain wo con Urgent 07/08/19 20:55 US venous doppler LE Routine Hospital Course (1) Fall: Musculoskeletal Pain as documented below -This is a patient who as per the history and physical fell down few steps after suddenly getting out of bed with a nightmare, apparently in a confused state. (2) Vertigo: -CT head: No acute intracranial abnormality. Atrophy and microvascular ischemic changes -Brain MRI: No evidence for an acute ischemic process; Considerable chronic small vessel change throughout both cerebral hemispheres; Old left cerebellar infarct -Neck MRA: No significant stenosis, occlusion, or dissection identified within the carotid or vertebral arteries -vertigo symptoms does not appear to occur now at rest, patient denied vertigo during walking with therapist, reports sensations more with changing positions such as standing up or sitting -updated patient and patient's son about old cerebellar infarct and that this is not likely contributory to current vertigo symptoms (3) Pulmonary embolism: -Chest CT with contrast: single small subsegmental pulmonary embolus seen within the left upper lobe. This is age indeterminate. Otherwise, no acute traumatic process within the chest. Large hiatus hernia, unchanged. -Venous ultrasound: No DVT within the right or left lower extremity -as per admitting physician, there is No need to anticoagulate if no evidence of acute DVT -agree for patient not to be on with systemic full dose anticoagulation as there is no lower extremity source and because patient respiratory stable and may be a potential fall risk and potential bleeding risk if on blood thinngers -have updated patient and patient's son about these findings and they agree to the plan (4) Chest wall pain: -Left chest wall pain/tenderness. -No apparent rib fractures per CT. -Analgesics for pain control, incentive spirometry. (5) Shoulder pain, left: -Acute pain of left shoulder: -as per orthopedics evaluation 07/09/19: "x-rays did not show any acute bony pathology, she has exquisite tenderness over the AC joint and subacromial space, discussed that she likely has an AC sprain as well as underlying DJD of the GH joint. it is possible that she has a tear of her cuff but does have 4/5 strength with FF, ABD, IR/ER. at this point, will treat conservatively with slingKATHARINE, do PT for shoulder and upper extremity. discussed that she should follow up in the office in 6-8 weeks for recheck." -Patient should follow up with Dr. Grimes or his colleagues at [facility] [address] [place] [address], [place] [address] (6) Pain of left lower extremity: -No apparent fractures per plain films. -patient was seen initially by PT/OT on 07/09/19 but declined evaluation due to discomfort -Analgesics for pain control (7) Back pain: -Status post recent lumbar decompression fusion surgery Dr. Grimes in the past -No apparent fracture or hardware failure per CT. -as per Dr. Grimes, there are no issues regarding her lumbar spine or lumbar surgery -Analgesics for pain control (8) Coronary artery disease: -No anginal symptoms. Troponin normal. EKG shows sinus bradycardia with chronic left bundle branch block. Continue aspirin, amlodipine, statin. (9) Hypertension: -Continue amlodipine, lisinopril, isosorbide mononitrate (10) CKD (chronic kidney disease), stage III: -creatinine at baseline which is around 1.5 to under 1.7 according to hospital lab records (11) GERD (gastroesophageal reflux disease): -Continue PPI. (12) Ulcerative colitis: -Continue prednisone and mesalamine. (13) Chronic steroid use: -on chronic prednisone because of polymyalgia rheumatica / ulcerative colitis (14) Polymyalgia rheumatica: -ESR is 22 which is near high normal reference lab ranges -Continue prednisone 5 mg daily (15) DM type 2 (diabetes mellitus, type 2): -HbA1c 7.5 -patient may resume home dose Januvia on discharge (16) Weight loss: Severe protein-calorie Malnutrition patient reports 35 lb wt loss over past year. -No specific symptoms or radiographic abnormalities to suggest malignancy on recent imaging -evp and chief operating officer consult recommend: 50,000 IU Vitamin D weekly x 8 weeks for repletion, followed by 2,000 IU daily thereafter; multivitamin and calcium supplement. Diet changed to CHO Consistent and oral nutrition supplements BID with meals -50,000 units Vitamin D given on 07/10/19 (17) Hypothyroidism: -TSH 0.833 which is euthyroid ranges -Continue home dose thyroid supplements (18) DVT prophylaxis: -SCDs, encourage ambulation as tolerated (19) Discharge planning issues: Patient's son Tina ([phone]; [phone]) -Case management has been able to coordinate patient to be able to continue physical therapy at [facility], patient does not feel ready today and plans for tomorrow -Patient's son Tina also present for hospital discussions between hospitalist, hospice case manager, and liaison from [facility] Discharge to [facility] Discharge Diagnosis: Fall, Musculoskeletal Pain, Pulmonary embolism without acute cor pulmonale, Diabetes Mellitus Type 2, Polymyalgia rheumatica, 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, CKD (chronic kidney disease) stage III, Hypertension, Old Cerebellar infarct, weigh loss, severe protein calorie malnutrition Total Time Total Time Spent Total Time Spent (In Minutes): 40 minutes Total Time Includes: Examination of the Patient, Discharge Planning, Medication Reconciliation and Communication With Other Providers Discharge Plan Discharge Items Patient Disposition: Transfer Inpatient Rehab Fac Reason For Visit: FALL WITH MULTIPLE INJURIES Discharge Diagnosis: Fall, Musculoskeletal Pain, Pulmonary embolism without acute cor pulmonale, Diabetes Mellitus Type 2, Polymyalgia rheumatica, 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, CKD (chronic kidney disease) stage III, Hypertension, Old Cerebellar infarct, weigh loss, severe protein calorie malnutrition Condition on Discharge: Good Activity: Per Instructions section Non-emergency contact: Primary Care Provider Call non-emergency contact if: you have any medication questions Follow-up/Referrals: Claudy Kingsley MD [Primary Care Provider] - Diet: Carb Consistent or DM2 Diet Comment: oral supplements such as BOOST with meals twice a day Addtl Attending Provider Instructions: Discharge to [facility] PDMP was checked and patient does not have any active controlled substance prescription in the past year prior to this hospital stay Patient may take acetaminophen 325 mg every 6 hours as needed for mild pain of fever Patient may take tramadol 50 mg every 6 hours as needed for moderate pain (16 tablets prescribed) Patient may take oxycodone 5 mg every 6 hours as needed for severe pain (16 tablets prescribed) Patient should take daily multivitamins and calcium supplements Patient can take vitamin D 50,000 units once weekly with next dose starting on 07/17/19, and then have daily vitamin D 2000 units daily Patient should follow up with Dr. Grimes or his colleagues at [facility] [address] [place] [id number] Patient should follow up with primary care doctor In regards to incidentally found small pulmonary embolism: -Chest CT with contrast: single small subsegmental pulmonary embolus seen within the left upper lobe. This is age indeterminate. Otherwise, no acute traumatic process within the chest. Large hiatus hernia, unchanged. -Venous ultrasound: No DVT within the right or left lower extremity -as per admitting physician, there is No need to anticoagulate if no evidence of acute DVT -agree for patient not to be on with systemic full dose anticoagulation as there is no lower extremity source and because patient respiratory stable and may be a potential fall risk and potential bleeding risk if on blood thinners -have updated patient and patient's son about these findings and they agree to the plan -updated patient and patient's son about old cerebellar infarct and that this is not likely contributory to current vertigo symptoms Addtl Rug Renovator Provider Instructions: as per orthopedics evaluation 07/09/19: "x-rays did not show any acute bony pathology, she has exquisite tenderness over the AC joint and subacromial space, discussed that she likely has an AC sprain as well as underlying DJD of the GH joint. it is possible that she has a tear of her cuff but does have 4/5 strength with FF, ABD, IR/ER. at this point, will treat conservatively with sling, RICE, do PT for shoulder and upper extremity. discussed that she should follow up in the office in 6-8 weeks for recheck." Pending Studies at Discharge: No Stand-Alone Forms: My [facility] Skilled Items Patient informed of condition?: Yes DNR: No Discharge Level of Care: Acute rehab Communicable Disease: No Discharge Prognosis: Stable Lines: None Urinary Catheter: No Medications and DC Order Prescriptions: New multivitamin [Daily-Melanie] Tablet 1 tab PO QAM 30 Days Qty: 30 RF: 0 ergocalciferol (vitamin D2) [Vitamin D2] 50,000 unit Capsule 50,000 unit PO Q7D@0900 49 Days Qty: 7 RF: 0 Caltrate 600-D Plus Minerals 600 mg calcium- 800 unit-50 mg Tablet 1 tab PO DAILY 30 Days Qty: 30 RF: 0 acetaminophen 325 mg capsule 325 mg PO Q6H PRN (Reason: mild pain or fever) 5 Days Qty: 20 RF: 0 tramadol 50 mg Tablet 50 mg PO Q6H PRN (Reason: moderate pain) 4 Days Qty: 16 RF: 0 oxycodone 5 mg Tablet 5 mg PO Q6H PRN (Reason: severe pain) 4 Days Qty: 16 RF: 0 Continued sennosides [senna] 8.6 mg Tablet 8.6 mg PO DAILY PRN (Reason: Constipation) RF: 0 atorvastatin 20 mg tablet 20 mg PO DAILY RF: 0 isosorbide mononitrate 30 mg tablet extended release 24 hr 30 mg PO DAILY RF: 0 prednisone 5 mg Tablet 5 mg PO DAILY RF: 0 aspirin [Aspirin Low Dose] 81 mg Tablet,Delayed Release (Dr/Ec) 81 mg PO DAILY RF: 0 flaxseed oil 1,000 mg Capsule 1,000 mg PO DAILY RF: 0 lansoprazole 30 mg capsule,delayed release(DR/EC) 30 mg PO BID RF: 0 docusate sodium [Doc-Q-Lace] 100 mg Capsule 100 mg PO BID RF: 0 mesalamine [Asacol HD] 800 mg Tablet,Delayed Release (Dr/Ec) 1,600 mg PO TID RF: 0 Fish Oil 900-1,400 mg Capsule,Delayed Release(Dr/Ec) 1 cap PO DAILY RF: 0 Januvia 25 mg tablet 25 mg PO DAILY RF: 0 Premarin 0.625 mg/gram cream 1 applic topical UD RF: 0 amlodipine 5 mg Tablet 5 mg PO DAILY RF: 0 hydrocortisone acetate 25 mg suppository 25 mg [place] DAILY PRN (Reason: constipation) RF: 0 lisinopril 20 mg Tablet 20 mg PO DAILY RF: 0 cholecalciferol (vitamin D3) [Vitamin D3] 2,000 unit Tablet 2,000 unit PO DAILY RF: 0 thyroid (pork) [[place] Thyroid] 30 mg Tablet 30 mg PO SUTUTHSA RF: 0 thyroid (pork) [[place] Thyroid] 60 mg Tablet 60 mg PO MOWEFR RF: 0 Discharge Orders: Discharge Order (Routine); Ordered 07/11/19 Ordered By: Kristopher Snyder Admission Data Admit Date/Time: 07/08/19 16:01 Attending Provider: Kristopher Snyder Admit Provider: Shane Rodriguez Primary Care Provider: Claudy Kingsley Other Providers: Shane Rodriguez ; Mo Del Rio ; Guillermo Grimes ; [facility]
[2019-07-17] MEDS ORDERED: ERGOCALCIFEROL 50,000 UNITS CAP PO SCH (09:00)
== END 2019-07-11 14:52 | DRG 562 ==
LOC: ED 10:12 → 2S 15:43 → SUATTDRO 16:01